=== PATIENT | male | born 1965 | race Two or more races ===

== ENCOUNTER 2020-01-01 10:05 | Outpatient (REF) | payer OTHER, SELFPAY ==
[2020-01-01 11:26] LABS: MANUAL DIFF FLAG NO
[2020-01-01 11:48] LABS: Estimated Average Glucose 255 mg/dL; Hemoglobin A1c % 10.5 %
[2020-01-01 11:50] LABS: Basophils Percent Auto 0.3 % (0-2); Eosinophils Absolute Auto 0.1 X10*3/uL (0.0-0.4); Eosinophils Percent Auto 1.2 % (0-4); Hematocrit 44.1 % (42-52); Hemoglobin 13.7 g/dl (14.0-18.0); Imm Gran Abs Auto 0.01 X10*3/uL (0.00-0.03); Imm Gran Pct Auto 0.1 % (0.0-0.4); Lymphocytes Absolute Auto 1.6 X10*3/uL (1.2-4.9); Lymphocytes Percent Auto 21.5 % (20-40); Mean Corpuscular HGB Conc 31.1 g/dl (31.0-36.0); Mean Corpuscular Hemoglobin 26.2 pg (27.0-33.0); Mean Corpuscular Volume 84.5 fL (80-98); Mean Platelet Volume 12.1 fL (9.4-12.4); Monocytes Absolute Auto 0.8 X10*3/uL (0.1-1.2); Monocytes Percent Auto 11.2 % (2-11); Neutrophils Absolute Auto 4.9 X10*3/uL (2.0-8.3); Neutrophils Percent Auto 65.7 % (45-73); Platelet Count 158 X10*3/uL (160-400); Red Blood Count 5.22 X10*6/uL (4.60-5.80); Red Cell Distribution Width 13.4 % (11.0-16.0); White Blood Count 7.4 X10*3/uL (4.8-10.8)
[2020-01-01 11:55] LABS: Alanine Aminotransferase 20 U/L (0-40); Alkaline Phosphatase 88 U/L (39-117); Anion Gap 10 (12-20); Aspartate Amino Transferase 14 U/L (5-37); Bilirubin Total 0.4 mg/dL (0.0-1.0); Blood Urea Nitrogen 9 mg/dL (9-16); Calcium 9.2 mg/dL (8.4-10.2); Carbon Dioxide 26 mmol/L (22-29); Chloride 105 mmol/L (96-108); Cholesterol 131 mg/dL; Estimated Glomerular Filt Rate > 60; Glucose Random 264 mg/dL (60-115); HDL Cholesterol 47 mg/dL; LDL Cholesterol Calculated 60 mg/dl; Potassium 4.4 mmol/l (3.3-5.1); Sodium 137 mmol/L (135-145); Total Protein 6.6 g/dL (6.5-8.0); Triglycerides 123 mg/dL
[2020-01-01 12:19] LABS: Thyroid Stimulating Hormone 0.97 mIU/mL (0.32-4.0)
[2020-01-01 12:30] LABS: Microalbum/Creatinine Ratio Ur 10.5 ug/mg cr
== END 2020-01-01 10:06 | disposition home or self-care (01) ==
LOC: HO.LAB 10:05
PROVIDERS: PCP Internal Medicine; Visit Provider Internal Medicine
DX: E11.9 Type 2 diabetes mellitus without complications (principal); E78.00 Pure hypercholesterolemia, unspecified; I10 Essential (primary) hypertension; G47.33 Obstructive sleep apnea (adult) (pediatric)
CPT/HCPCS: 36415; 80053; 80061; 82043; 83036; 84443; 85025

== ENCOUNTER → 2020-02-04 13:47 | Outpatient (BNVA) | payer OTHER, SELFPAY | PROVIDERS: PCP Internal Medicine; Referring Provider Internal Medicine; Visit Provider Internal Medicine Cardiovascular Disease | DX: I48.0 Paroxysmal atrial fibrillation (principal); G47.33 Obstructive sleep apnea (adult) (pediatric); Z86.79 Personal history of other diseases of the circulatory system; Z45.02 Encounter for adjustment and management of automatic implantable cardiac defibrillator | CPT/HCPCS: 93005; 99212 ==

== ENCOUNTER → 2020-03-25 08:55 | Outpatient (BNVA) | payer OTHER, SELFPAY | PROVIDERS: Visit Provider Psychiatry & Neurology Neurology | DX: Z13.89 Encounter for screening for other disorder (principal) | CPT/HCPCS: Q3014 ==

== ENCOUNTER → 2020-05-13 10:01 | Outpatient (BNVA) | payer OTHER, SELFPAY | PROVIDERS: Visit Provider Psychiatry & Neurology Neurology | DX: Z76.89 Persons encountering health services in other specified circumstances (principal) | CPT/HCPCS: Q3014 ==

== ENCOUNTER → 2020-05-23 10:23 | Outpatient (BNVA) | payer OTHER, SELFPAY | PROVIDERS: PCP Internal Medicine; Visit Provider Nurse Practitioner Family | DX: I48.0 Paroxysmal atrial fibrillation (principal); I10 Essential (primary) hypertension; G47.33 Obstructive sleep apnea (adult) (pediatric); E66.01 Morbid (severe) obesity due to excess calories; Z68.43 Body mass index [BMI] 50.0-59.9, adult; Z95.810 Presence of automatic (implantable) cardiac defibrillator; Z86.79 Personal history of other diseases of the circulatory system; Z79.899 Other long term (current) drug therapy | CPT/HCPCS: 93005; 99212 ==

== ENCOUNTER 2020-05-29 12:27 | Outpatient (REF) | payer OTHER, SELFPAY ==
[2020-05-29 13:04] LABS: MANUAL DIFF FLAG NO
[2020-05-29 13:08] LABS: Basophils Percent Auto 0.4 % (0-2); Eosinophils Absolute Auto 0.1 X10*3/uL (0.0-0.4); Hematocrit 44.6 % (42-52); Hemoglobin 14.1 g/dl (14.0-18.0); Imm Gran Abs Auto 0.01 X10*3/uL (0.00-0.03); Imm Gran Pct Auto 0.1 % (0.0-0.4); Lymphocytes Absolute Auto 1.6 X10*3/uL (1.2-4.9); Lymphocytes Percent Auto 22.8 % (20-40); Mean Corpuscular HGB Conc 31.6 g/dl (31.0-36.0); Mean Corpuscular Volume 82.3 fL (80-98); Mean Platelet Volume 11.4 fL (9.4-12.4); Monocytes Absolute Auto 0.8 X10*3/uL (0.1-1.2); Neutrophils Absolute Auto 4.5 X10*3/uL (2.0-8.3); Neutrophils Percent Auto 64.7 % (45-73); Platelet Count 158 X10*3/uL (160-400); Red Blood Count 5.42 X10*6/uL (4.60-5.80); Red Cell Distribution Width 13.5 % (11.0-16.0)
[2020-05-29 13:16] LABS: Estimated Average Glucose 295 mg/dL; Hemoglobin A1c % 11.9 %
[2020-05-29 13:32] LABS: Alanine Aminotransferase 13 U/L (0-40); Alkaline Phosphatase 100 U/L (39-117); Anion Gap 12 (12-20); Aspartate Amino Transferase 12 U/L (5-37); Bilirubin Total 0.6 mg/dL (0.0-1.0); Blood Urea Nitrogen 10 mg/dL (9-16); Calcium 9.1 mg/dL (8.4-10.2); Carbon Dioxide 26 mmol/L (22-29); Chloride 102 mmol/L (96-108); Estimated Glomerular Filt Rate > 60; Glucose Random 264 mg/dL (60-115); Potassium 4.3 mmol/L (3.3-5.1); Sodium 136 mmol/L (135-145); Total Protein 6.8 g/dL (6.5-8.0)
== END 2020-05-29 12:28 | disposition home or self-care (01) ==
LOC: HO.LAB 12:27
PROVIDERS: PCP Internal Medicine; Visit Provider Internal Medicine
DX: E11.649 Type 2 diabetes mellitus with hypoglycemia without coma (principal); E78.00 Pure hypercholesterolemia, unspecified; I10 Essential (primary) hypertension; M54.5 Low back pain; Z79.01 Long term (current) use of anticoagulants
CPT/HCPCS: 36415; 80053; 83036; 85025

== ENCOUNTER → 2020-07-01 10:47 | Outpatient (BNVA) | payer OTHER, SELFPAY | PROVIDERS: PCP Internal Medicine; Visit Provider Psychiatry & Neurology Neurology | DX: Z13.89 Encounter for screening for other disorder (principal) | CPT/HCPCS: Q3014 ==

== ENCOUNTER 2020-07-01 11:52 | Outpatient (REF) | payer OTHER, SELFPAY | END 2020-07-01 11:53 | disposition home or self-care (01) | LOC: HO.LAB 11:52 | PROVIDERS: Visit Provider Internal Medicine | DX: Z20.822 Contact with and (suspected) exposure to COVID-19 (principal) | CPT/HCPCS: C9803; U0003; U0005 ==

== ENCOUNTER 2020-07-12 08:31 | Inpatient (IN) | payer OTHER, SELFPAY ==
[2020-07-12] VITALS (9 sets, daily range): BP systolic 117–133; BP diastolic 63–77; PULSE 82–145; RESP 18–24; TEMP 37–37.6; O2SAT 88–95; BMI 43.2
--- NOTE | ~2020-07-12 | XR_ITS ---
EXAMINATION: XR CHEST CLINICAL INFORMATION: Shortness of breath/Covid positive COMPARISON: April 16, 2019 TECHNIQUE: AP portable view of the chest was obtained. FINDINGS: Bilateral regions of patchy groundglass opacity noted. The cardiopericardial silhouette is upper limits of normal in size. No evidence of pulmonary edema. Region of more confluent disease is seen within the right middle lobe. Unipolar pacemaker in place. No pneumothorax XR/XR chest 1V IMPRESSION: Bilateral patchy regions of disease.
--- NOTE | 2020-07-12 09:19 | ECG_ITS ---
Test Reason : SOB Blood Pressure : / mmHG Vent. Rate : 113 BPM Atrial Rate : 312 BPM P-R Int : 000 ms QRS Dur : 086 ms QT Int : 348 ms P-R-T Axes : 000 006 088 degrees QTc Int : 477 ms Atrial fibrillation with rapid ventricular response Abnormal ECG When compared with ECG of 09-FEB-2017 08:35, Atrial fibrillation has replaced Sinus rhythm Nonspecific T wave abnormality now evident in Lateral leads Referred By: Belia Omalley Electronically Signed By:KERI HARRISON MD
--- NOTE | 2020-07-12 09:33 | ED.GENADULT ---
HPI - General Adult General Chief complaint: General Medical Stated complaint: NAUSEA/VOMITING SINCE LAST NOC,NO CONC FOR COVID Time Seen by Provider: 07/12/20 09:05 Source: patient and EMS Mode of arrival: EMS History of Present Illness HPI narrative: 54-year-old male with a past medical history of DM, cardiomyopathy, CHF, HTN, pacemaker, morbid obesity, RACHELLE, AFib on Xarelto, COVID-19 positive on 07/01/2020, presenting to the ED complaining of sore throat, nausea, vomiting, diarrhea, intermittent SOB, rhinorrhea/increased mucus, and intermittent lightheadedness since last night. Also reports decreased p.o. intake. Denies fever, chills, chest pain, abdominal pain, constipation, LE edema, calf pain Onset (ago): day(s) Related Data Home Medications Medication Instructions Recorded Confirmed atorvastatin 40 mg tablet 40 mg PO BEDTIME 02/04/20 07/12/20 hydrochlorothiazide 25 mg tablet 25 mg PO QAM 02/04/20 07/12/20 insulin aspart U-100 100 unit/mL 20 unit SUBCUT TID 02/04/20 subcutaneous solution insulin glargine 100 unit/mL 45 unit SUBCUT BEDTIME 02/04/20 subcutaneous solution metformin 1,000 mg tablet 1,000 mg PO BID 02/04/20 07/12/20 metoprolol succinate 100 mg 100 mg PO BID 02/04/20 07/12/20 tablet,extended release 24 hr losartan 100 mg tablet 100 mg PO QAM 05/23/20 07/12/20 fluoxetine 1 cap PO QAM 07/12/20 07/12/20 Previous Rx's Medication Instructions Recorded apixaban 5 mg tablet 5 mg PO BID 90 Days #180 tab 03/25/20 amiodarone 200 mg tablet 200 mg PO QAM #30 tab 05/20/20 Allergies Allergy/AdvReac Type Severity Reaction Status Date / Time No Known Allergies Allergy Mild NOT Verified 07/12/20 08:50 APPLICABLE Review of Systems Review of Systems: Constitutional: No Fever, No Chills, No Night Sweats, No Fatigue, No Malaise ENT/Mouth: No Ear Pain, + Nasal Congestion, No Hoarseness, + sore throat, + Rhinorrhea, No Swallowing Difficulty Cardiovascular: No Chest Pain, + SOB, No Dyspnea on Exertion, No Edema Respiratory: No Cough, No Sputum Gastrointestinal: + Nausea, + Vomiting, + Diarrhea, No Constipation, No Abdominal pain Genitourinary: No Dysuria, No Urinary Frequency, No Hematuria Musculoskeletal: No joint pain, No Myalgias, No Joint Swelling Skin: No Skin Lesions, No rash Neuro: No Weakness, No Numbness, +Lightheadedness Yes all other systems are reviewed and are negative [facility] Past Medical History Attestation statement: The following information was validated with the patient. Medical History Diabetes mellitus History of cardiomyopathy History of congestive heart failure HTN (hypertension) Hx of cardiac pacemaker ICD (implantable cardioverter-defibrillator) in place Morbid obesity RACHELLE (obstructive sleep apnea) Paroxysmal atrial fibrillation Surgical History Hx of cardiac cath Family History Family History Father CVD (cardiovascular disease) Mother No problems noted. Social History Social History Smoking Status: Never smoker Smoked in Last 30 Days: No Use of substances other than those prescribed or required for medical reasons: No Advance Directives: No Advance Directives Information Provided: No Physical Exam Vital Signs: Vital Signs: Last Vital Signs Temp 99.7 F 07/12/20 10:34 Pulse 105 H 07/12/20 10:34 Resp 24 H 07/12/20 10:34 BP 133/72 07/12/20 10:34 Pulse Ox 95 07/12/20 11:57 Oxygen Flow Rate 2 07/12/20 08:50 Body Mass Index 43.2 Const: General: cooperative and healthy appearing Orientation/consciousness: patient oriented x3 Limitations: no limitations HENMT: Head: Yes normal to inspection Ears: hearing grossly normal bilaterally General nose exam: Normal external nose present Face and sinus: Yes normal facial exam Mouth: Normal oral and palatal mucosa present Throat: Yes posterior oropharynx normal, Yes uvula midline, No peritonsillar mass and No posterior oropharynx abnormal Eyes: General: appearance normal, both eyes and all related structures EOM: EOMs intact bilaterally Neck: Neck: Yes normal visual inspection, Yes no meningeal signs and Yes supple Resp: Effort & Inspection: normal respiratory effort Auscultation: diminished lung sounds diffuse Cardio: Rate: regular rate Heart sounds: S1 normal heart sound present and S2 normal heart sound present GI: Inspection: Yes normal to inspection Palpation (GI): Soft to palpation, nontender, no guarding and not rigid Skin: Rashes: no rashes Wounds: no wounds Neuro: General: patient oriented x3 and no meningeal signs Gait exam (Neuro): Normal gait present Extrem: General: Yes normal to inspection, Yes no pedal edema and Yes no calf tenderness Course Course Course Narrative: -EKG AFib with RVR with rate of 113. Patient missed home does of his medications this morning, will start with p.o. rate control meds and reassess -1112--XR chest 1V IMPRESSION: Bilateral patchy regions of disease > IV Ceftriaxone and Doxycycline ordered -glucose elevated 367, no anion gap, ferritin, CRP, LDH elevated consistent with COVID-19 infection. Troponin < 5 >> will ambulate trial with pulse ox --patient dropped to 88% on ambulation trial. Will admit for further management -1356--patient's heart rate still elevated lb the mid 130s to 150s even after home medications. Will give 500 cc IVF and 20 IV Cardizem Medical Decision Making [facility] Narrative Medical decision making narrative: 54-year-old male with a past medical history of DM, cardiomyopathy, CHF, HTN, pacemaker, morbid obesity, RACHELLE, AFib on Xarelto, COVID-19 positive on 07/01/2020, presenting to the ED complaining of sore throat, nausea, vomiting, diarrhea, intermittent SOB, rhinorrhea/increased mucus, and intermittent lightheadedness since last night. On exam low-grade temp 99.4?, sating 90% on RA increased to 94-95 on 2L NC, decreased breath sounds throughout. Concern for COVID-19/viral pneumonia. Lower concern for PE without CP/persistent SOB and already anticoagulated. Concern for possible CHF. Lower concern for bacterial infection Plan: EKG, labs, CXR, albuterol, Decadron, ambulated with pulse ox, reassess Lab Data Result diagrams: 07/12/20 10:15 07/12/20 10:15 Labs: Lab Results 04/24/21 04/24/21 04/24/21 Range/Units 10:14 10:15 10:15 WBC 7.8 (4.8-10.8) X10*3/uL RBC 5.51 (4.60-5.80) X10*6/uL Hgb 14.1 (14.0-18.0) g/dl Hct 44.1 (42-52) % MCV 80.0 (80-98) fL MCH 25.6 L (27.0-33.0) pg MCHC 32.0 (31.0-36.0) g/dl RDW 13.4 (11.0-16.0) % Plt Count 165 (160-400) X10*3/uL MPV 11.7 (9.4-12.4) fL Immature Gran % (Auto) 0.3 (0.0-0.4) % Neut % (Auto) 85.5 H (45-73) % Lymph % (Auto) 8.7 L (20-40) % Jerome % (Auto) 5.4 (2-11) % Eos % (Auto) 0.0 (0-4) % Baso % (Auto) 0.1 (0-2) % Lymph # (Auto) 0.7 L (1.2-4.9) X10*3/uL Jerome # (Auto) 0.4 (0.1-1.2) X10*3/uL Eos # (Auto) 0.0 (0.0-0.4) X10*3/uL Baso # (Auto) 0.0 (0.0-0.2) X10*3/uL Abs Immat Gran (auto) 0.02 (0.00-0.03) X10*3/uL Absolute Neuts (auto) 6.7 (2.0-8.3) X10*3/uL Absolute Nucleated RBC 0.000 (0.0-0.012) X10*3/uL Nucleated RBC % (auto) 0.0 (0.0-0.2) /100WBC Smear Tech's Comments VERIFIED PT 16.4 H (10.8-13.0) SEC INR 1.4 H (0.9-1.1) APTT 38.5 H (24.1-38.0) SEC D-Dimer 522 NG/ML Sodium (135-145) mmol/L Potassium (3.3-5.1) mmol/L Chloride (96-108) mmol/L Carbon Dioxide (22-29) mmol/L Anion Gap (12-20) BUN (9-16) mg/dL Creatinine (0.5-1.4) mg/dL Estim Creat Clear Calc Estimated GFR Random Glucose (60-115) mg/dL Lactic Acid 1.8 (0.5-2.0) mmol/L Calcium (8.4-10.2) mg/dL Magnesium (1.6-2.6) mg/dL Ferritin (20-250) ng/mL Total Bilirubin (0.0-1.0) mg/dL Direct Bilirubin (0.0-0.5) mg/dL AST (5-37) U/L ALT (0-40) U/L Alkaline Phosphatase (39-117) U/L Lactate Dehydrogenase (118-273) U/L Troponin I High Sens (<3.5-35.0) ng/L C-Reactive Protein (< or = 0.50) mg/dL B-Natriuretic Peptide (<100) pg/mL Total Protein (6.5-8.0) g/dL Albumin (3.5-5.0) g/dL Procalcitonin ng/mL 07/12/20 07/12/20 07/12/20 Range/Units 10:15 10:15 10:15 WBC (4.8-10.8) X10*3/uL RBC (4.60-5.80) X10*6/uL Hgb (14.0-18.0) g/dl Hct (42-52) % MCV (80-98) fL MCH (27.0-33.0) pg MCHC (31.0-36.0) g/dl RDW (11.0-16.0) % Plt Count (160-400) X10*3/uL MPV (9.4-12.4) fL Immature Gran % (Auto) (0.0-0.4) % Neut % (Auto) (45-73) % Lymph % (Auto) (20-40) % Jerome % (Auto) (2-11) % Eos % (Auto) (0-4) % Baso % (Auto) (0-2) % Lymph # (Auto) (1.2-4.9) X10*3/uL Jerome # (Auto) (0.1-1.2) X10*3/uL Eos # (Auto) (0.0-0.4) X10*3/uL Baso # (Auto) (0.0-0.2) X10*3/uL Abs Immat Gran (auto) (0.00-0.03) X10*3/uL Absolute Neuts (auto) (2.0-8.3) X10*3/uL Absolute Nucleated RBC (0.0-0.012) X10*3/uL Nucleated RBC % (auto) (0.0-0.2) /100WBC Smear Tech's Comments PT (10.8-13.0) SEC INR (0.9-1.1) APTT (24.1-38.0) SEC D-Dimer NG/ML Sodium 136 (135-145) mmol/L Potassium 4.1 (3.3-5.1) mmol/L Chloride 100 (96-108) mmol/L Carbon Dioxide 23 (22-29) mmol/L Anion Gap 17 (12-20) BUN 12 (9-16) mg/dL Creatinine 0.96 (0.5-1.4) mg/dL Estim Creat Clear Calc 127.7 Estimated GFR > 60 Random Glucose 367 H* (60-115) mg/dL Lactic Acid (0.5-2.0) mmol/L Calcium 8.6 (8.4-10.2) mg/dL Magnesium 1.8 (1.6-2.6) mg/dL Ferritin 278 H (20-250) ng/mL Total Bilirubin 0.5 (0.0-1.0) mg/dL Direct Bilirubin 0.3 (0.0-0.5) mg/dL AST 27 D (5-37) U/L ALT 18 (0-40) U/L Alkaline Phosphatase 77 D (39-117) U/L Lactate Dehydrogenase 356 H (118-273) U/L Troponin I High Sens 4.6 (<3.5-35.0) ng/L C-Reactive Protein 22.29 H (< or = 0.50) mg/dL B-Natriuretic Peptide 242 H (<100) pg/mL Total Protein 6.6 (6.5-8.0) g/dL Albumin 3.6 (3.5-5.0) g/dL Procalcitonin 0.17 ng/mL ECG Data Attestation: I personally reviewed and interpreted this ECG as follows: Prior ECG tracings: available for review Interpretation: EKG AFib with RVR with a rate of 113. No STEMI/nonischemic Discharge Plan Discharge Clinical Impression: Pneumonia due to COVID-19 virus Patient Disposition: Admitted As Inpatient
[2020-07-12] MEDS: dexAMETHasone sod phosphate 4 MG/ML VIAL 6 MG IVPUSH (10:23)
[2020-07-12 10:25] LABS: Basophils Percent Auto 0.1 % (0-2); Hematocrit 44.1 % (42-52); Hemoglobin 14.1 g/dl (14.0-18.0); Imm Gran Abs Auto 0.02 X10*3/uL (0.00-0.03); Imm Gran Pct Auto 0.3 % (0.0-0.4); Lymphocytes Absolute Auto 0.7 X10*3/uL (1.2-4.9); Lymphocytes Percent Auto 8.7 % (20-40); MANUAL DIFF FLAG SCAN; Mean Corpuscular Hemoglobin 25.6 pg (27.0-33.0); Mean Platelet Volume 11.7 fL (9.4-12.4); Monocytes Absolute Auto 0.4 X10*3/uL (0.1-1.2); Monocytes Percent Auto 5.4 % (2-11); Neutrophils Absolute Auto 6.7 X10*3/uL (2.0-8.3); Neutrophils Percent Auto 85.5 % (45-73); Platelet Count 165 X10*3/uL (160-400); Red Blood Count 5.51 X10*6/uL (4.60-5.80); Red Cell Distribution Width 13.4 % (11.0-16.0); SCAN SMEAR FLAG 1; White Blood Count 7.8 X10*3/uL (4.8-10.8)
[2020-07-12 10:43] LABS: SLIDE REVIEW VERIFIED
[2020-07-12 10:43] LABS: Lactic Acid 1.8 mmol/L (0.5-2.0)
[2020-07-12 10:49] LABS: Lactate Dehydrogenase 356 U/L (118-273)
[2020-07-12 10:51] LABS: INTERNATIONAL NORM RATIO 1.4 (0.9-1.1); Prothrombin Time 16.4 SEC (10.8-13.0)
[2020-07-12] MEDS: ondansetron HCL 4 MG/2 ML VIAL IVPUSH (10:54)
[2020-07-12 10:55] LABS: B Type Natriuretic Peptide 242 pg/mL (<100)
--- NOTE | 2020-07-12 10:56 | PC.NURSE ---
patient reports he has been n/v at home and has not taken AM meds. HR from 100-140's afib. patient has home meds with him in package. spoke with PA. pt medicated with zofran and then ok to take home meds. snack provided for patient as well.
[2020-07-12 10:58] LABS: Partial Thromboplastin Time 38.5 SEC (24.1-38.0)
[2020-07-12 11:05] LABS: Procalcitonin 0.17 ng/mL
[2020-07-12 11:11] LABS: Ferritin 278 ng/mL (20-250)
[2020-07-12 11:18] LABS: Troponin-I High Sensitivity 4.6 ng/L (<3.5-35.0)
[2020-07-12 11:19] LABS: Alanine Aminotransferase 18 U/L (0-40); Albumin Level 3.6 g/dL (3.5-5.0); Alkaline Phosphatase 77 U/L (39-117); Anion Gap 17 (12-20); Aspartate Amino Transferase 27 U/L (5-37); Bilirubin Direct 0.3 mg/dL (0.0-0.5); Bilirubin Total 0.5 mg/dL (0.0-1.0); Blood Urea Nitrogen 12 mg/dL (9-16); C Reactive Protein 22.29 mg/dL (< or = 0.50); Calcium 8.6 mg/dL (8.4-10.2); Carbon Dioxide 23 mmol/L (22-29); Chloride 100 mmol/L (96-108); Creatinine Clr Calc Pharmacy 127.7; Estimated Glomerular Filt Rate > 60; Glucose Random 367 mg/dL (60-115); Magnesium 1.8 mg/dL (1.6-2.6); Potassium 4.1 mmol/L (3.3-5.1); Sodium 136 mmol/L (135-145); Total Protein 6.6 g/dL (6.5-8.0)
[2020-07-12] MEDS: cefTRIAXone sodium 1 GM in 0.9 % Sodium Chloride 50 ML IV (11:32)
[2020-07-12 11:36] LABS: D Dimer 522 NG/ML
--- NOTE | 2020-07-12 11:56 | PC.NURSE ---
o2 sat dropped to 88% with ambulation. patient brought back to room and placed back on 2 L o2.
[2020-07-12] MEDS: Doxycycline Hyclate 100 MG in 0.9 % Sodium Chloride 250 ML 166.67 MG IV (12:05)
[2020-07-12] MEDS: dilTIAZem HCL 50 MG/10 ML VIAL 20 MG IVPUSH (14:01)
[2020-07-12] MEDS: 0.9 % Sodium Chloride 1,000 ML 500 ML IVCONT (14:07)
--- NOTE | 2020-07-12 15:11 | P.HPHOSP_ITS ---
History of Present Illness Date of Service: 07/12/20 <ROSETTA Zambrano Last Filed: 07/12/20 15:58> Chief Complaint: Nausea, vomiting, shortness of breath <ROSETTA Zambrano Last Filed: 07/12/20 15:58> This is a 54-year-old male multiple medical problems who presents to the emergency department today with complaints of nausea, vomiting, shortness of breath. Patient was diagnosed with coronavirus on July 01. For the past 2 days he has been having nausea and vomiting with generalized abdominal pain. He also reports intermittent dizziness, shortness of breath, sore throat, cough. He also reports feeling sweaty although he has not taken his temperature at home. He was noted to be hypoxic with an oxygen saturation of 88% on room air. Chest quoc was consistent with coronavirus. Inflammatory markers were elevated at 278, LDH 356, CRP 22.29. He was started on IV antibiotics and given a dose of IV dexamethasone. It was also noted to be in atrial fibrillation with rapid ventricular response. He had missed his home medications and was given his home doses of metoprolol and amiodarone. He continued to be tachycardic and therefore he received a dose of IV Cardizem and his heart rate improved. He denies any palpitations, chest pain. <ROSETTA Zambrano - Last Filed: 07/12/20 15:58> Review of Systems Review of Systems: Yes all other systems are reviewed and are negative <ROSETTA Zambrano Last Filed: 07/12/20 15:58> Constitutional: Constitutional: Denies chills <ROSETTA Zambrano Last Filed: 07/12/20 15:58> Cardiovascular: Cardiovascular: Denies chest pain and Denies dyspnea <ROSETTA Zambrano Last Filed: 07/12/20 15:58> Respiratory: Respiratory: Reports cough and Denies dyspnea <ROSETTA Zambrano Last Filed: 07/12/20 15:58> Gastrointestinal: Gastrointestinal: Reports nausea and Reports vomiting <ROSETTA Zambrano Last Filed: 07/12/20 15:58> COUNTS INCLUDE 234 BEDS AT THE [facility] Medical History: Medical History Diabetes mellitus History of cardiomyopathy History of congestive heart failure HTN (hypertension) Hx of cardiac pacemaker ICD (implantable cardioverter-defibrillator) in place Morbid obesity RACHELLE (obstructive sleep apnea) Paroxysmal atrial fibrillation <ROSETTA Zambrano - Last Filed: 07/12/20 15:58> Family History: Family History Father CVD (cardiovascular disease) Mother No problems noted. <ROSETTA Zambrano - Last Filed: 07/12/20 15:58> Surgical History: Surgical History Hx of cardiac cath <ROSETTA Zambrano - Last Filed: 07/12/20 15:58> Social History: Social History Smoking Status: Never smoker Smoked in Last 30 Days: No Use of substances other than those prescribed or required for medical reasons: No Advance Directives: No Advance Directives Information Provided: No <ROSETTA Zambrano - Last Filed: 07/12/20 15:58> Meds Allergies/Adverse reactions: Allergies Allergy/AdvReac Type Severity Reaction Status Date / Time No Known Allergies Allergy Mild NOT Verified 07/12/20 08:50 APPLICABLE <ROSETTA Zambrano - Last Filed: 07/12/20 15:58> Active Medications: Current Medications Generic Name Dose Route Start Last Admin Trade Name Freq PRN Reason Stop Dose Admin Sodium Chloride 1,000 mls @ 500 mls/hr 07/12/20 14:00 07/12/20 14:07 Ns IVCONT 07/12/20 15:59 500 mls/hr .Q2H REMIGIO Administration Pharmacy Consult 1 each 07/12/20 09:19 Consult Rx Perform Med Rec MISCELLANE ONCE PRN Consult order <ROSETTA Zambrano - Last Filed: 07/12/20 15:58> Home medications: Home Medications Medication Instructions Recorded Confirmed Last Taken Type atorvastatin 40 mg tablet 40 mg PO BEDTIME 02/04/20 07/12/20 Unknown History hydrochlorothiazide 25 mg tablet 25 mg PO QAM 02/04/20 07/12/20 Unknown History insulin aspart U-100 100 unit/mL 20 unit SUBCUT TID 02/04/20 Unknown History subcutaneous solution insulin glargine 100 unit/mL 45 unit SUBCUT BEDTIME 02/04/20 Unknown History subcutaneous solution metformin 1,000 mg tablet 1,000 mg PO BID 02/04/20 07/12/20 Unknown History metoprolol succinate 100 mg 100 mg PO BID 02/04/20 07/12/20 Unknown History tablet,extended release 24 hr losartan 100 mg tablet 100 mg PO QAM 05/23/20 07/12/20 Unknown History fluoxetine 1 cap PO QAM 07/12/20 07/12/20 Unknown History <ROSETTA Zambrano - Last Filed: 07/12/20 15:58> Physical Exam Vital Signs and Narrative: Vital Signs: Last Vital Signs Temp 98.6 F 07/12/20 14:49 Pulse 102 H 07/12/20 14:49 Resp 21 H 07/12/20 14:49 BP 120/71 07/12/20 14:49 Pulse Ox 94 07/12/20 14:49 Oxygen Flow Rate 2 07/12/20 08:50 Body Mass Index 43.2 <ROSETTA Zambrano Last Filed: 07/12/20 15:58> Const: General: alert and awake <ROSETTA Zambrano Last Filed: 07/12/20 15:58> Nutritional Appearance: obese <ROSETTA Zambrano Last Filed: 07/12/20 15:58> Orientation/consciousness: patient oriented x3 <ROSETTA Zambrano Last Filed: 07/12/20 15:58> HENMT: Head: Yes normocephalic and Yes atraumatic <ROSETTA Zambrano Last Filed: 07/12/20 15:58> Eyes: Sclerae: sclerae normal <ROSETTA Zambrano Last Filed: 07/12/20 15:58> Chest: Chest palpation & inspection: normal inspection of the chest <ROSETTA Zambrano Last Filed: 07/12/20 15:58> Resp: Effort & Inspection: normal respiratory effort and no respiratory dist ress <ROSETTA Zambrano Last Filed: 07/12/20 15:58> GI: Palpation (GI): Soft to palpation and nontender <ROSETTA Zambrano - Last Filed: 07/12/20 15:58> Neuro: General: patient oriented x3 <ROSETTA Zambrano - Last Filed: 07/12/20 15:58> Cranial nerves: Yes CN's II-XII intact bilaterally and Yes Bilaterally intact E OM present <ROSETTA Zambrano - Last Filed: 07/12/20 15:58> Extrem: General: Yes normal to inspection <ROSETTA Zambrano - Last Filed: 07/12/20 15:58> Results Labs CBC and Chem 7: : 07/12/20 10:15 07/12/20 10:15 <ROSETTA Zambrano - Last Filed: 07/12/20 15:58> Labs: Laboratory Results - last 24 hr 07/12/20 07/12/20 07/12/20 10:14 10:15 10:15 MCV 80.0 MCH 25.6 L MCHC 32.0 RDW 13.4 Plt Count 165 MPV 11.7 Immature Gran % (Auto) 0.3 Neut % (Auto) 85.5 H Lymph % (Auto) 8.7 L [place] % (Auto) 5.4 Eos % (Auto) 0.0 Baso % (Auto) 0.1 Lymph # (Auto) 0.7 L [place] # (Auto) 0.4 Eos # (Auto) 0.0 Baso # (Auto) 0.0 Abs Immat Gran (auto) 0.02 Absolute Neuts (auto) 6.7 Absolute Nucleated RBC 0.000 Nucleated RBC % (auto) 0.0 Smear Tech's Comments VERIFIED PT 16.4 H INR 1.4 H APTT 38.5 H D-Dimer 522 Anion Gap Estim Creat Clear Calc Estimated GFR Random Glucose Lactic Acid 1.8 Calcium Magnesium Ferritin Total Bilirubin Direct Bilirubin AST ALT Alkaline Phosphatase Lactate Dehydrogenase Troponin I High Sens C-Reactive Protein B-Natriuretic Peptide Total Protein Albumin Procalcitonin 07/12/20 07/12/20 07/12/20 10:15 10:15 10:15 MCV MCH MCHC RDW Plt Count MPV Immature Gran % (Auto) Neut % (Auto) Lymph % (Auto) [place] % (Auto) Eos % (Auto) Baso % (Auto) Lymph # (Auto) [place] # (Auto) Eos # (Auto) Baso # (Auto) Abs Immat Gran (auto) Absolute Neuts (auto) Absolute Nucleated RBC Nucleated RBC % (auto) Smear Tech's Comments PT INR APTT D-Dimer Anion Gap 17 Estim Creat Clear Calc 127.7 Estimated GFR > 60 Random Glucose 367 H* Lactic Acid Calcium 8.6 Magnesium 1.8 Ferritin 278 H Total Bilirubin 0.5 Direct Bilirubin 0.3 AST 27 D ALT 18 Alkaline Phosphatase 77 D Lactate Dehydrogenase 356 H Troponin I High Sens 4.6 C-Reactive Protein 22.29 H B-Natriuretic Peptide 242 H Total Protein 6.6 Albumin 3.6 Procalcitonin 0.17 <ROSETTA Zambrano - Last Filed: 07/12/20 15:58> Imaging Radiologist's Impressions: Impressions Chest X-Ray 07/12/20 09:19 IMPRESSION: Bilateral patchy regions of disease. <ROSETTA Zambrano - Last Filed: 07/12/20 15:58> Assessment and Plan (1) Pneumonia due to COVID-19 virus: Status: Acute <ROSETTA Zambrano - Last Filed: 07/12/20 15:58> (2) Atrial fibrillation with rapid ventricular response: Status: Acute <ROSETTA Zambrano - Last Filed: 07/12/20 15:58> (3) Acute respiratory failure with hypoxia: Status: Acute <ROSETTA Zambrano - Last Filed: 07/12/20 15:58> This is a 54-year-old male with history of diabetes, cardiomyopathy status post ICD with recovered ejection fraction, hypertension, morbid obesity, atrial fibrillation on Eliquis, RACHELLE, recent diagnosis of COVID-19 who presents to the emergency department with multiple complaints found to be hypoxic and in atrial fibrillation with rapid ventricular response. Acute respiratory failure with hypoxia COVID-19 Inflammatory markers elevated LDH 356, Ferritin 278, CRP 22.29 -IV dexamethasone -supplemental oxygen as needed -prn albuterol Atrial fibrillation with rapid ventricular response Received IV Cardizem with good effect -tele monitoring -continue home dose of metoprolol, amiodarone -continue anticoagulation with Eliquis RACHELLE needs repeat sleep study for new CPAP machine, so not currently using at home -Will order CPAP for bedtime Diabetes with hyperglycemia -SSI, POCs, ada diet -Continue Lantus CM s/p ICD with recovered EF -continue metoprolol, losartan HTN blood pressure controlled -continue HCTZ, metoprolol, losartan Morbid obesity BMI 43.3. Likely contributing to current respiratory status and hypoxia. Mood -continue fluoxetine HLD -continue statin DVT prophylaxis-Eliquis Code status-full code This case was discussed with Dr. Khan <ROSETTA Zambrano - Last Filed: 07/12/20 15:58>
[2020-07-12 15:16] LABS: Glucose, Whole Blood 374 mg/dL (60-115)
[2020-07-12] MEDS: 0.9 % Sodium Chloride Flush 3 ML SYRINGE IVFLUSH (16:01)
[2020-07-12] MEDS: Insulin Lispro 100 UNIT/ML 3 ML VIAL SUBCUT ×2 (16:01→20:57)
--- NOTE | 2020-07-12 16:08 | PM.EVENT ---
Event Note Date of Service: 07/12/20 Event Note: the patient was seen and evaluated with ROSETTA Jeff. I agree with her note, assessment and plan with the following. In summary, a 54 years old male with PMH diabetes, CMP post ICD, RACHELLE, AFib among others who presented to the hospital with worsening shortness of breath associated with nausea vomiting. He was diagnosed with COVID in July 01 but noticed over the last 3 days significant worsening in his dyspnea with increased weakness. He started to have nausea and vomiting for the last 2 days and has not been able to tolerate much of diet. In the emergency he was noted to have hypoxemia of 88% with ambulation associated with the atrial fibrillation with rapid ventricular response. Hypoxic respiratory failure COVID-19 infection Start dexamethasone O2 supplement as needed to get ID evaluation AFib with RVR Received IV Cardizem continue home medications of metoprolol and amiodarone keep on telemetry continue Eliquis Rest of evaluations by PA note.
[2020-07-12 20:36] LABS: Glucose, Whole Blood 459 mg/dL (60-115)
[2020-07-12] MEDS: Metoprolol Succinate ER 100 MG TAB.ER.24H PO (20:57)
[2020-07-12] MEDS: Insulin Glargine,Hum.rec.anlog 100 UNIT/ML 10 ML VIAL 35 UNIT SUBCUT (20:57)
[2020-07-12] MEDS: Atorvastatin Calcium 40 MG TABLET PO (20:58)
[2020-07-12] MEDS: Apixaban 5 MG TABLET PO (20:58)
[2020-07-12] MEDS: Insulin Lispro 100 UNIT/ML 3 ML VIAL 10 UNIT SUBCUT ×2 (21:37→23:27)
[2020-07-12] MEDS: Acetaminophen 325 MG TABLET 650 MG PO (21:58)
[2020-07-12 22:25] LABS: Glucose, Whole Blood 408 mg/dL (60-115)
[2020-07-12 22:25] LABS: Glucose, Whole Blood 387 mg/dL (60-115)
[2020-07-13] VITALS (10 sets, daily range): BP systolic 109–132; BP diastolic 66–80; PULSE 84–113; RESP 19–24; TEMP 36.6–37.1; O2SAT 90–97
[2020-07-13 00:50] LABS: Glucose, Whole Blood 263 mg/dL (60-115)
[2020-07-13] MEDS: 0.9 % Sodium Chloride Flush 3 ML SYRINGE IVFLUSH ×3 (01:58→16:29)
--- NOTE | 2020-07-13 04:28 | PC.NURSE ---
Around 0300 pt O2 sat dropped to 87%. Assessed patient, NC was out of nose and pt was sleeping. pt placed back on o2, and was educated about keeping the NC in his nose at all times. Sats increased back up to 94% 5L O2.
--- NOTE | 2020-07-13 04:30 | PC.NURSE ---
pt received additional 10 units humalog at 2130 for POC 459. POC retaken around 2230, poc 387, 10 additional received 10 units humalog. Blood sugar has come down to 263. aware.
[2020-07-13 07:16] LABS: Glucose, Whole Blood 245 mg/dL (60-115)
[2020-07-13] MEDS: hydroCHLOROthiazide 25 MG TABLET PO (08:12)
[2020-07-13] MEDS: Losartan Potassium 50 MG TABLET 100 MG PO (08:12)
[2020-07-13] MEDS: Insulin Lispro 100 UNIT/ML 3 ML VIAL SUBCUT ×4 (08:12→20:40)
[2020-07-13] MEDS: Docusate Sodium 100 MG CAPSULE PO (08:12)
[2020-07-13] MEDS: Apixaban 5 MG TABLET PO ×2 (08:12→20:40)
[2020-07-13] MEDS: FLUoxetine HCl 20 MG CAPSULE PO (08:13)
[2020-07-13] MEDS: Amiodarone HCL 200 MG TABLET PO (08:13)
[2020-07-13] MEDS: Metoprolol Succinate ER 100 MG TAB.ER.24H PO ×2 (08:13→20:40)
--- NOTE | 2020-07-13 10:04 | MHC.CM.PN ---
Patient is on both contact and airborne precautions; CM spoke with /Madie @ [phone]. Patient lives in an apartment with his and Son and he is waiting on paperwork to begin receiving [employer] services. Home is the goal for dc and CM has initiated and will follow for dc planning. IMM addressed with Madie and the original will be mailed certified letter to her and a copy has been placed on the chart.
[2020-07-13 11:10] LABS: Glucose, Whole Blood 325 mg/dL (60-115)
--- NOTE | 2020-07-13 11:17 | P.PNIM_ITS ---
Subjective Subjective Date of Service: 07/13/20 <ROSETTA Zambrano - Last Filed: 07/13/20 11:27> 07/13/20 <Duncan Hahn MD - Last Filed: 07/13/20 14:57> Interval History: follow up respiratory failure/COVID 19 and atrial fibrillation with RVR Reports difficulty sleeping overnight due to cough, sore throat Unable to tolerate CPAP overnight due to above Denies chest pain, palpitations <ROSETTA Zambrano - Last Filed: 07/13/20 11:27> Review of Systems Constitutional: No Fever, No Chills, No Night Sweats, No Fatigue, No Malaise ENT/Mouth: No Ear Pain, + Nasal Congestion, No Hoarseness, + sore throat, + Rhinorrhea, No Swallowing Difficulty Cardiovascular: No Chest Pain, + SOB, No Dyspnea on Exertion, No Edema Respiratory: No Cough, No Sputum Gastrointestinal: + Nausea, + Vomiting, + Diarrhea, No Constipation, No Abdominal pain Genitourinary: No Dysuria, No Urinary Frequency, No Hematuria Musculoskeletal: No joint pain, No Myalgias, No Joint Swelling Skin: No Skin Lesions, No rash Neuro: No Weakness, No Numbness, +Lightheadedness <ROSETTA Zambrano - Last Filed: 07/13/20 11:27> Review of Systems: Yes all other systems are reviewed and are negative <ROSETTA Zambrano - Last Filed: 07/13/20 11:27> Constitutional Constitutional: Denies chills and Denies fever(s) <ROSETTA Zambrano - Last Filed: 07/13/20 11:27> Cardiovascular Cardiovascular: Denies chest pain and Denies palpitations <ROSETTA Zambrano - Last Filed: 07/13/20 11:27> Respiratory Respiratory: Reports cough <ROSETTA Zambrano - Last Filed: 07/13/20 11:27> Gastrointestinal Gastrointestinal: Denies abdominal pain <ROSETTA Zambrano - Last Filed: 07/13/20 11:27> Endocrine Endocrine: Denies palpitations <ROSETTA Zambrano - Last Filed: 07/13/20 11:27> Physical Exam Vital Signs: Vital Signs: Last Vital Signs Temp 98.2 F 07/13/20 08:00 Pulse 85 07/13/20 08:13 Resp 19 07/13/20 08:00 BP 132/76 07/13/20 08:13 Pulse Ox 92 07/13/20 08:00 Oxygen Flow Rate 2 07/12/20 08:50 Body Mass Index 43.2 <ROSETTA Zambrano - Last Filed: 07/13/20 11:27> Const: General: comfortable, no acute distress, alert and awake <ROSETTA Zambrano - Last Filed: 07/13/20 11:27> Nutritional Appearance: obese <ROSETTA Zambrano - Last Filed: 07/13/20 11:27> Orientation/consciousness: patient oriented x3 <ROSETTA Zambrano - Last Filed: 07/13/20 11:27> HENMT: Head: Yes normocephalic and Yes atraumatic <ROSETTA Zambrano - Last Filed: 07/13/20 11:27> Eyes: Sclerae: sclerae normal <ROSETTA Zambrano - Last Filed: 07/13/20 11:27> Chest: Chest palpation & inspection: normal inspection of the chest <ROSETTA Zambrano - Last Filed: 07/13/20 11:27> Resp: Effort & Inspection: normal respiratory effort and no respiratory distress <ROSETTA Zambrano - Last Filed: 07/13/20 11:27> Cardio: Rate: regular rate <ROSETTA Zambrano - Last Filed: 07/13/20 11:27> Rhythm: abnormal rhythm (irregular) <ROSETTA Zambrano - Last Filed: 07/13/20 11:27> GI: Inspection: No distended <ROSETTA Zambrano - Last Filed: 07/13/20 11:27> Palpation (GI): Soft to palpation, nontender and no guarding <ROSETTA Zambrano - Last Filed: 07/13/20 11:27> Neuro: General: patient oriented x3 <ROSETTA Zambrano - Last Filed: 07/13/20 11:27> Cranial nerves: Yes CN's II-XII intact bilaterally and Yes Bilaterally intact EOM present <ROSETTA Zambrano - Last Filed: 07/13/20 11:27> Extrem: General: Yes normal to inspection <ROSETTA Zambrano - Last Filed: 07/13/20 11:27> Objective Data Current Medications Generic Name Dose Route Start Last Admin Trade Name Freq PRN Reason Stop Dose Admin Acetaminophen 650 mg 07/12/20 15:43 07/12/20 21:58 Acetaminophen 325 Mg Tablet PO 650 mg Q6H PRN Administration Pain, Mild (Pain Scale 1-3) Albuterol Sulfate 2 puff 07/12/20 15:43 Albuterol Sulfate 90 Mcg 8 Gm Inhaler INHALE RQ4H PRN Shortness of Breath Amiodarone HCl 200 mg 07/13/20 09:00 07/13/20 08:13 Amiodarone Hcl 200 Mg Tablet PO 200 mg DAILY [facility] Administration Apixaban 5 mg 07/12/20 21:00 07/13/20 08:12 Apixaban 5 Mg Tablet PO 5 mg BID [facility] Administration Atorvastatin Calcium 40 mg 07/12/20 21:00 07/12/20 20:58 Atorvastatin Calcium 40 Mg Tablet PO 40 mg BEDTIME [facility] Administration Benzocaine 1 lozenge 07/13/20 09:47 Throat Lozenge, Medicated Lozenge MUCOUS MEM Q2H PRN Sore Throat Benzonatate 200 mg 07/13/20 10:40 Benzonatate 100 Mg Capsule PO TID [facility] Dexamethasone Sodium Phosphate 6 mg 07/13/20 09:00 07/13/20 08:13 Dexamethasone Sod Phosphate/Pf 10 Mg/Ml Vial IVPUSH 6 mg DAILY [facility] Administration Docusate Sodium 100 mg 07/13/20 09:00 07/13/20 08:12 Docusate Sodium 100 Mg Capsule PO 100 mg DAILY [facility] Administration Fluoxetine HCl 20 mg 07/13/20 09:00 07/13/20 08:13 Fluoxetine Hcl 20 Mg Capsule PO 20 mg DAILY [facility] Administration Guaifenesin 10 ml 07/13/20 09:47 Guaifenesin 200 Mg/10 Ml 10 Ml Liquid PO Q4H PRN Cough Guaifenesin/Codeine Phosphate 5 ml 07/13/20 11:00 Guaifen/Codeine Sf 200/20/10ml 10 Ml Liquid PO 07/15/20 10:59 Q6H [facility] Hydrochlorothiazide 25 mg 07/13/20 09:00 07/13/20 08:12 Hydrochlorothiazide 25 Mg Tablet PO 25 mg DAILY [facility] Administration Protocol Insulin Glargine 35 unit 07/12/20 21:00 07/12/20 20:57 Insulin Glargine,Hum.Rec.Anlog 100 Unit/Ml 10 Ml Vial SUBCUT 35 unit BEDTIME [facility] Administration Insulin Human Lispro 0 unit 07/12/20 16:30 07/13/20 08:12 Insulin Lispro 100 Unit/Ml 3 Ml Vial SUBCUT 4 unit QIDACHS [facility] Administration Protocol Losartan Potassium 100 mg 07/13/20 09:00 07/13/20 08:12 Losartan Potassium 50 Mg Tablet PO 100 mg DAILY [facility] Administration Protocol Metoprolol Succinate 100 mg 07/12/20 21:00 07/13/20 08:13 Metoprolol Succinate Er 100 Mg Tab.Er.24h PO 100 mg BID [facility] Administration Protocol Pharmacy Consult 1 each 07/12/20 09:19 Consult Rx Perform Med Rec MISCELLANE ONCE PRN Consult order Senna 17.2 mg 07/12/20 15:43 Sennosides 8.6 Mg Tablet PO BEDTIME PRN Constipation Sodium Chloride 3 ml 07/12/20 16:00 07/13/20 08:13 0.9 % Sodium Chloride Flush 3 Ml Syringe IVFLUSH 3 ml QSHIFT [facility] Administration Trazodone HCl 50 mg 07/13/20 09:47 Trazodone Hcl 50 Mg Tablet PO BEDTIME PRN sleep <ROSETTA Zambrano - Last Filed: 07/13/20 11:27> Labs CBC & Chem 7: : 07/12/20 10:15 07/12/20 10:15 <ROSETTA Zambrano Last Filed: 07/13/20 11:27> Assessment and Plan (1) Acute respiratory failure with hypoxia: Status: Acute <ROSETTA Zambrano Last Filed: 07/13/20 11:27> (2) Pneumonia due to COVID-19 virus: Status: Acute <ROSETTA Zambrano Last Filed: 07/13/20 11:27> Assessment and Plan: This is a 54-year-old male with history of diabetes, cardiomyopathy status post ICD with recovered ejection fraction, hypertension, morbid obesity, atrial fibrillation on Eliquis, RACHELLE, recent diagnosis of COVID-19 who presents to the emergency department with multiple complaints found to be hypoxic and in atrial fibrillation with rapid ventricular response. Acute respiratory failure with hypoxia COVID-19 Inflammatory markers elevated LDH 356, Ferritin 278, CRP 22.29 -Consult to ID pending -Continue IV dexamethasone -supplemental oxygen as needed -prn albuterol -add cough suppressant Atrial fibrillation with rapid ventricular response Rate now controlled, likely r/t missing am medication yesterday -tele monitoring -continue home dose of metoprolol, amiodarone -continue anticoagulation with Eliquis RACHELLE needs repeat sleep study for new CPAP machine, so not currently using at home -Will order CPAP for bedtime Diabetes with hyperglycemia Sugars elevated, likely r/t steroids -SSI, POCs, ada diet -Will up titrate Lantus CM s/p ICD with recovered EF -continue metoprolol, losartan HTN blood pressure controlled -continue HCTZ, metoprolol, losartan Morbid obesity BMI 43.3. Likely contributing to current respiratory status and hypoxia. Mood -continue fluoxetine HLD -continue statin DVT prophylaxis-Eliquis Code status-full code This case was discussed with <ROSETTA Zambrano - Last Filed: 07/13/20 11:27> the patient was seen and evaluated with ROSETTA Jeff. I agree with her note, assessment and plan with the following. a 54 years old male with PMH diabetes, CMP post ICD, RACHELLE, AFib among others who presented to the hospital with worsening shortness of breath associated with nausea vomiting. Hypoxic respiratory failure COVID-19 infection Continue dexamethasone O2 supplement as needed to get ID evaluation for in the severe Rest of evaluations by PA note. <Duncan Hahn MD - Last Filed: 07/13/20 14:57>
[2020-07-13] MEDS: guaiFEN/Codeine SF 200/20/10ML 10 ML LIQUID 5 ML PO ×3 (11:24→23:07)
[2020-07-13] MEDS: Benzonatate 100 MG CAPSULE 200 MG PO ×3 (11:24→20:40)
[2020-07-13 16:17] LABS: Glucose, Whole Blood 322 mg/dL (60-115)
[2020-07-13 19:44] LABS: Glucose, Whole Blood 453 mg/dL (60-115)
[2020-07-13] MEDS: Insulin Glargine,Hum.rec.anlog 100 UNIT/ML 10 ML VIAL 40 UNIT SUBCUT (20:39)
[2020-07-13] MEDS: Atorvastatin Calcium 40 MG TABLET PO (20:40)
[2020-07-13] MEDS: Insulin Lispro 100 UNIT/ML 3 ML VIAL 10 UNIT SUBCUT (20:40)
[2020-07-14] VITALS (9 sets, daily range): BP systolic 114–132; BP diastolic 64–85; PULSE 80–106; RESP 16–20; TEMP 36–37.2; O2SAT 92–96
[2020-07-14] MEDS: 0.9 % Sodium Chloride Flush 3 ML SYRINGE IVFLUSH ×4 (00:11→21:17)
[2020-07-14 07:00] LABS: Hematocrit 43.8 % (42-52); Hemoglobin 13.7 g/dl (14.0-18.0); Mean Corpuscular HGB Conc 31.3 g/dl (31.0-36.0); Mean Corpuscular Hemoglobin 25.3 pg (27.0-33.0); Mean Platelet Volume 11.6 fL (9.4-12.4); Platelet Count 227 X10*3/uL (160-400); Red Blood Count 5.41 X10*6/uL (4.60-5.80); Red Cell Distribution Width 13.8 % (11.0-16.0); White Blood Count 12.2 X10*3/uL (4.8-10.8)
[2020-07-14 07:18] LABS: Glucose, Whole Blood 218 mg/dL (60-115)
[2020-07-14 07:19] LABS: Anion Gap 15 (12-20); Blood Urea Nitrogen 14 mg/dL (9-16); Calcium 8.2 mg/dL (8.4-10.2); Carbon Dioxide 23 mmol/L (22-29); Chloride 102 mmol/L (96-108); Creatinine Clr Calc Pharmacy 172.6; Estimated Glomerular Filt Rate > 60; Glucose Random 202 mg/dL (60-115); Potassium 4.3 mmol/L (3.3-5.1); Sodium 136 mmol/L (135-145)
[2020-07-14] MEDS: Insulin Lispro 100 UNIT/ML 3 ML VIAL SUBCUT ×4 (07:35→21:16)
[2020-07-14] MEDS: Benzonatate 100 MG CAPSULE 200 MG PO ×3 (07:36→21:15)
[2020-07-14] MEDS: Amiodarone HCL 200 MG TABLET PO (07:36)
[2020-07-14] MEDS: Apixaban 5 MG TABLET PO ×2 (07:36→21:23)
[2020-07-14] MEDS: Losartan Potassium 50 MG TABLET 100 MG PO (07:36)
[2020-07-14] MEDS: Metoprolol Succinate ER 100 MG TAB.ER.24H PO ×2 (07:36→21:15)
[2020-07-14] MEDS: hydroCHLOROthiazide 25 MG TABLET PO (07:36)
[2020-07-14] MEDS: Docusate Sodium 100 MG CAPSULE PO (07:36)
[2020-07-14] MEDS: FLUoxetine HCl 20 MG CAPSULE PO (07:37)
[2020-07-14] MEDS: Acetaminophen 325 MG TABLET 650 MG PO (07:37)
[2020-07-14] MEDS: Fluticasone Propionate Nasal 16 GM SPRAY 1 SPRAY NOSTRIL-B ×2 (11:04→21:17)
[2020-07-14 11:21] LABS: Glucose, Whole Blood 326 mg/dL (60-115)
--- NOTE | 2020-07-14 11:23 | MHC.CM.PN ---
Per ROUNDS discussion, Patient is not yet medically cleared for dc (IV Decadron, Increasing O2 needs).Home is the goal for dc and CM will follow for possible need to adjust the dc plan.
[2020-07-14] MEDS: guaiFEN/Codeine SF 200/20/10ML 10 ML LIQUID 5 ML PO ×3 (11:36→22:52)
--- NOTE | 2020-07-14 14:18 | P.PNIM_ITS ---
Subjective Subjective Date of Service: 07/14/20 Interval History: the patient was seen and evaluated this morning Laying in bed, feels mild dyspnea Complaining of cough and increased lethargy but requiring oral supplement to 5 L of oxygen Denies any fever, chills or chest pain No reported other overnight events. Systemic review: No fever, chills or weakness No chest pain, palpitation Dyspnea and coughing No abdominal pain, nausea or vomiting No urinary symptoms No any rash or wounds Physical Exam Vital Signs: Vital Signs: Last Vital Signs Temp 98.1 F 07/14/20 11:24 Pulse 88 07/14/20 11:24 Resp 19 07/14/20 11:24 BP 125/81 07/14/20 11:24 Pulse Ox 95 07/14/20 11:24 Oxygen Flow Rate 2 07/12/20 08:50 Body Mass Index 43.2 Const: Other: Constitutional : Alert, oriented, not in distress Neck : Normal inspection, Supple Cardiovascular : RRR, S1 S2, no lower extremity edema Respiratory : Decreased bilateral air entry, no crackles, wheezes or rhonchi Gastrointestinal: soft, lax, Normal bowel sounds, Non tender Skin : Warm/Dry, No rash Neurological : Alert & oriented x3, No focal deficit Objective Data Current Medications Generic Name Dose Route Start Last Admin Trade Name Freq PRN Reason Stop Dose Admin Acetaminophen 650 mg 07/12/20 15:43 07/14/20 07:37 Acetaminophen 325 Mg Tablet PO 650 mg Q6H PRN Administration Pain, Mild (Pain Scale 1-3) Albuterol Sulfate 2 puff 07/12/20 15:43 Albuterol Sulfate 90 Mcg 8 Gm Inhaler INHALE RQ4H PRN Shortness of Breath Amiodarone HCl 200 mg 07/13/20 09:00 07/14/20 07:36 Amiodarone Hcl 200 Mg Tablet PO 200 mg DAILY [facility] Administration Apixaban 5 mg 07/12/20 21:00 07/14/20 07:36 Apixaban 5 Mg Tablet PO 5 mg BID [facility] Administration Atorvastatin Calcium 40 mg 07/12/20 21:00 07/13/20 20:40 Atorvastatin Calcium 40 Mg Tablet PO 40 mg BEDTIME [facility] Administration Benzocaine 1 lozenge 07/13/20 09:47 Throat Lozenge, Medicated Lozenge MUCOUS MEM Q2H PRN Sore Throat Benzonatate 200 mg 07/13/20 10:40 07/14/20 07:36 Benzonatate 100 Mg Capsule PO 200 mg TID [facility] Administration Dexamethasone Sodium Phosphate 6 mg 07/13/20 09:00 07/14/20 07:37 Dexamethasone Sod Phosphate/Pf 10 Mg/Ml Vial IVPUSH 6 mg DAILY [facility] Administration Docusate Sodium 100 mg 07/13/20 09:00 07/14/20 07:36 Docusate Sodium 100 Mg Capsule PO 100 mg DAILY [facility] Administration Fluoxetine HCl 20 mg 07/13/20 09:00 07/14/20 07:37 Fluoxetine Hcl 20 Mg Capsule PO 20 mg DAILY [facility] Administration Fluticasone Propionate 1 spray 07/14/20 09:50 07/14/20 11:04 Fluticasone Propionate Nasal 16 Gm [place] NOSTRIL-B 1 spray BID [facility] Administration Guaifenesin 10 ml 07/13/20 09:47 Guaifenesin 200 Mg/10 Ml 10 Ml Liquid PO Q4H PRN Cough Guaifenesin/Codeine Phosphate 5 ml 07/13/20 11:00 07/14/20 11:36 Guaifen/Codeine Sf 200/20/10ml 10 Ml Liquid PO 07/15/20 10:59 5 ml Q6H [facility] Administration Hydrochlorothiazide 25 mg 07/13/20 09:00 07/14/20 07:36 Hydrochlorothiazide 25 Mg Tablet PO 25 mg DAILY [facility] Administration Protocol Insulin Glargine 45 unit 07/14/20 21:00 Insulin Glargine,Hum.Rec.Anlog 100 Unit/Ml 10 Ml Vial SUBCUT BEDTIME [facility] Insulin Human Lispro 0 unit 07/12/20 16:30 07/14/20 11:37 Insulin Lispro 100 Unit/Ml 3 Ml Vial SUBCUT 8 unit QIDACHS [facility] Administration Protocol Losartan Potassium 100 mg 07/13/20 09:00 07/14/20 07:36 Losartan Potassium 50 Mg Tablet PO 100 mg DAILY [facility] Administration Protocol Metoprolol Succinate 100 mg 07/12/20 21:00 07/14/20 07:36 Metoprolol Succinate Er 100 Mg Tab.Er.24h PO 100 mg BID [facility] Administration Protocol Pharmacy Consult 1 each 07/12/20 09:19 Consult Rx Perform Med Rec MISCELLANE ONCE PRN Consult order Senna 17.2 mg 07/12/20 15:43 Sennosides 8.6 Mg Tablet PO BEDTIME PRN Constipation Sodium Chloride 3 ml 07/12/20 16:00 07/14/20 07:37 0.9 % Sodium Chloride Flush 3 Ml Syringe IVFLUSH 3 ml QSHIFT [facility] Administration Trazodone HCl 50 mg 07/13/20 09:47 Trazodone Hcl 50 Mg Tablet PO BEDTIME PRN sleep Labs CBC & Chem 7: 07/14/20 06:20 07/14/20 06:20 Microbiology Microbiology Results: Microbiology 07/12/20 10:38 Blood - Venous Blood Culture - Preliminary No growth after 48 hours. 07/12/20 10:15 Blood - Venous Blood Culture - Preliminary No growth after 48 hours. Assessment and Plan (1) Acute respiratory failure with hypoxia: Status: Acute (2) Pneumonia due to COVID-19 virus: Status: Acute Assessment and Plan: This is a 54-year-old male with history of diabetes, cardiomyopathy status post ICD with recovered ejection fraction, hypertension, morbid obesity, atrial fibrillation on Eliquis, RACHELLE, recent diagnosis of COVID-19 who presents to the emergency department with multiple complaints found to be hypoxic and in atrial fibrillation with rapid ventricular response. Acute respiratory failure with hypoxia COVID-19 Inflammatory markers elevated LDH 356, Ferritin 278, CRP 22.29 Continue IV dexamethasone T3 Wean oxygen down as tolerated prn albuterol add cough suppressant Id input appreciated, start remdesivir Atrial fibrillation with rapid ventricular response Rate now controlled tele monitoring continue home dose of metoprolol, amiodarone continue anticoagulation with Eliquis RACHELLE needs repeat sleep study for new CPAP machine, so not currently using at home Will order CPAP for bedtime Diabetes with hyperglycemia Sugars elevated, likely r/t steroids SSI, POCs, ada diet Will up titrate Lantus CM s/p ICD with recovered EF continue metoprolol, losartan HTN blood pressure controlled continue HCTZ, metoprolol, losartan Morbid obesity BMI 43.3. Likely contributing to current respiratory status and hypoxia. Mood continue fluoxetine HLD continue statin DVT prophylaxis Eliquis
--- NOTE | 2020-07-14 14:50 | P.CNID_ITS ---
History of Present Illness Data of Consult Service Date: 07/14/20 Requesting physician: Duncan Hahn Primary Care Provider: Viv Richardson MD [facility] Reason for consult: hypoxia He presents to hospital with shortness of breath for a week There is report COVID positive on 07/01 He has had myalgias and weakness positive earlier apparently although patient says only sick a week Review of Systems Review of Systems: Yes all other systems are reviewed and are negative PMFSH Past Medical History Medical History Diabetes mellitus History of cardiomyopathy History of congestive heart failure HTN (hypertension) Hx of cardiac pacemaker ICD (implantable cardioverter-defibrillator) in place Morbid obesity RACHELLE (obstructive sleep apnea) Paroxysmal atrial fibrillation Family History Family History Father CVD (cardiovascular disease) Mother No problems noted. Family history: reviewed and not pertinent Surgical History Surgical History Hx of cardiac cath Social History Social History Household Members: Spouse and Family Housing: Apartment Smoking Status: Never smoker Smoked in Last 30 Days: No Use of substances other than those prescribed or required for medical reasons: No Currently Displaying Signs/Symptoms of Drug Intoxication Withdrawal: No Have you been hit, kicked, punched, or otherwise hurt by someone within the past year? If so, by whom?: No Do you feel safe in your current relationship?: Yes Is there a partner from a previous relationship who is making you feel unsafe now?: No Are you made to feel afraid or neglected: No Advance Directives: No Advance Directives Information Provided: No Do you have thoughts of harming others: None Do you have a plan to hurt others: No Plan Recently lost weight without trying: No service: No Current occupational status: disabled Meds Allergies Allergy/AdvReac Type Severity Reaction Status Date / Time No Known Allergies Allergy Mild NOT Verified 07/12/20 08:50 APPLICABLE Active Medications: Current Medications Generic Name Dose Route Start Last Admin Trade Name Freq PRN Reason Stop Dose Admin Acetaminophen 650 mg 07/12/20 15:43 07/14/20 07:37 Acetaminophen 325 Mg Tablet PO 650 mg Q6H PRN Administration Pain, Mild (Pain Scale 1-3) Albuterol Sulfate 2 puff 07/12/20 15:43 Albuterol Sulfate 90 Mcg 8 Gm Inhaler INHALE RQ4H PRN Shortness of Breath Amiodarone HCl 200 mg 07/13/20 09:00 07/14/20 07:36 Amiodarone Hcl 200 Mg Tablet PO 200 mg DAILY [facility] Administration Apixaban 5 mg 07/12/20 21:00 07/14/20 07:36 Apixaban 5 Mg Tablet PO 5 mg BID [facility] Administration Atorvastatin Calcium 40 mg 07/12/20 21:00 07/13/20 20:40 Atorvastatin Calcium 40 Mg Tablet PO 40 mg BEDTIME [facility] Administration Benzocaine 1 lozenge 07/13/20 09:47 Throat Lozenge, Medicated Lozenge MUCOUS MEM Q2H PRN Sore Throat Benzonatate 200 mg 07/13/20 10:40 07/14/20 07:36 Benzonatate 100 Mg Capsule PO 200 mg TID [facility] Administration Dexamethasone Sodium Phosphate 6 mg 07/13/20 09:00 07/14/20 07:37 Dexamethasone Sod Phosphate/Pf 10 Mg/Ml Vial IVPUSH 6 mg DAILY [facility] Administration Docusate Sodium 100 mg 07/13/20 09:00 07/14/20 07:36 Docusate Sodium 100 Mg Capsule PO 100 mg DAILY [facility] Administration Fluoxetine HCl 20 mg 07/13/20 09:00 07/14/20 07:37 Fluoxetine Hcl 20 Mg Capsule PO 20 mg DAILY [facility] Administration Fluticasone Propionate 1 spray 07/14/20 09:50 07/14/20 11:04 Fluticasone Propionate Nasal 16 Gm [place] NOSTRIL-B 1 spray BID [facility] Administration Guaifenesin 10 ml 07/13/20 09:47 Guaifenesin 200 Mg/10 Ml 10 Ml Liquid PO Q4H PRN Cough Guaifenesin/Codeine Phosphate 5 ml 07/13/20 11:00 07/14/20 11:36 Guaifen/Codeine Sf 200/20/10ml 10 Ml Liquid PO 07/15/20 10:59 5 ml Q6H [facility] Administration Hydrochlorothiazide 25 mg 07/13/20 09:00 07/14/20 07:36 Hydrochlorothiazide 25 Mg Tablet PO 25 mg DAILY [facility] Administration Protocol Remdesivir 200 mg/ Sodium 210 mls @ 105 mls/hr 07/14/20 15:00 Chloride IV 07/14/20 16:59 ONCE ONE Remdesivir 100 mg/ Sodium 230 mls @ 115 mls/hr 07/15/20 15:00 Chloride IV 07/18/20 16:59 Q24H [facility] Insulin Glargine 45 unit 07/14/20 21:00 Insulin Glargine,Hum.Rec.Anlog 100 Unit/Ml 10 Ml Vial SUBCUT BEDTIME [facility] Insulin Human Lispro 0 unit 07/12/20 16:30 07/14/20 11:37 Insulin Lispro 100 Unit/Ml 3 Ml Vial SUBCUT 8 unit QIDACHS [facility] Administration Protocol Losartan Potassium 100 mg 07/13/20 09:00 07/14/20 07:36 Losartan Potassium 50 Mg Tablet PO 100 mg DAILY [facility] Administration Protocol Metoprolol Succinate 100 mg 07/12/20 21:00 07/14/20 07:36 Metoprolol Succinate Er 100 Mg Tab.Er.24h PO 100 mg BID [facility] Administration Protocol Pharmacy Consult 1 each 07/12/20 09:19 Consult Rx Perform Med Rec MISCELLANE ONCE PRN Consult order Senna 17.2 mg 07/12/20 15:43 Sennosides 8.6 Mg Tablet PO BEDTIME PRN Constipation Sodium Chloride 3 ml 07/12/20 16:00 07/14/20 07:37 0.9 % Sodium Chloride Flush 3 Ml Syringe IVFLUSH 3 ml QSHIFT [facility] Administration Trazodone HCl 50 mg 07/13/20 09:47 Trazodone Hcl 50 Mg Tablet PO BEDTIME PRN sleep Home Medications Medication Instructions Recorded Confirmed Last Taken Type atorvastatin 40 mg tablet 40 mg PO BEDTIME 02/04/20 07/12/20 07/12/20 10:00 History hydrochlorothiazide 25 mg tablet 25 mg PO QAM 02/04/20 07/12/20 07/12/20 10:00 History insulin aspart U-100 100 unit/mL 20 unit SUBCUT TID 02/04/20 07/12/20 Unknown History subcutaneous solution insulin glargine 100 unit/mL 45 unit SUBCUT BEDTIME 02/04/20 07/12/20 Unknown History subcutaneous solution metformin 1,000 mg tablet 1,000 mg PO BID 02/04/20 07/12/20 07/12/20 10:00 History metoprolol succinate 100 mg 100 mg PO BID 02/04/20 07/12/20 07/12/20 10:00 History tablet,extended release 24 hr losartan 100 mg tablet 100 mg PO QAM 05/23/20 07/12/20 07/12/20 10:00 History fluoxetine 1 cap PO QAM 07/12/20 07/12/20 07/12/20 10:00 History Physical Exam Vital Signs: Vital Signs: Last Vital Signs Temp 98.1 F 07/14/20 11:24 Pulse 88 07/14/20 11:24 Resp 19 07/14/20 11:24 BP 125/81 07/14/20 11:24 Pulse Ox 95 07/14/20 11:24 Oxygen Flow Rate 2 07/12/20 08:50 Body Mass Index 43.2 Const: General: cooperative HENMT: Ears: hearing grossly normal bilaterally Mouth: Normal oral and palatal mucosa present Eyes: General: appearance normal, both eyes and all related structures Resp: Effort & Inspection: normal respiratory effort Cardio: Rate: regular rate Rhythm: regular rhythm GI: Palpation (GI): Soft to palpation and nontender Skin: General skin exam: no rashes or lesions noted Results Labs CBC & Chem 7: 07/14/20 06:20 07/14/20 06:20 Labs: Short CBC 07/14/20 Range/Units 06:20 WBC 12.2 H (4.8-10.8) X10*3/uL Hgb 13.7 L (14.0-18.0) g/dl Hct 43.8 (42-52) % Plt Count 227 D (160-400) X10*3/uL BMP 07/14/20 06:20 Sodium 136 Potassium 4.3 Chloride 102 Carbon Dioxide 23 BUN 14 Creatinine 0.71 Calcium 8.2 L Microbiology Microbiology Results: Microbiology 07/12/20 10:38 Blood - Venous Blood Culture - Preliminary No growth after 48 hours. 07/12/20 10:15 Blood - Venous Blood Culture - Preliminary No growth after 48 hours. Assessment and Plan (1) Acute respiratory failure with hypoxia: Problem details: He has shortness of breath ,but is over 10 days illness with COVID positive on 07/01 He may have residual lung and cardiac toxicity from virus Status: Acute Hold Remdesivir due to duration of illness Oxygen as needed May give steroids
[2020-07-14 16:25] LABS: Glucose, Whole Blood 290 mg/dL (60-115)
[2020-07-14 19:59] LABS: Glucose, Whole Blood 395 mg/dL (60-115)
[2020-07-14] MEDS: Insulin Glargine,Hum.rec.anlog 100 UNIT/ML 10 ML VIAL 45 UNIT SUBCUT (21:16)
[2020-07-14] MEDS: Atorvastatin Calcium 40 MG TABLET PO (21:23)
[2020-07-15] VITALS (8 sets, daily range): BP systolic 126–139; BP diastolic 83–88; PULSE 84–100; RESP 19–23; TEMP 35.8–36.6; O2SAT 89–94
[2020-07-15] MEDS: guaiFEN/Codeine SF 200/20/10ML 10 ML LIQUID 5 ML PO (05:04)
[2020-07-15 06:16] LABS: Hematocrit 41.5 % (42-52); Hemoglobin 13.3 g/dl (14.0-18.0); Mean Corpuscular Hemoglobin 25.9 pg (27.0-33.0); Mean Corpuscular Volume 80.7 fL (80-98); Platelet Count 224 X10*3/uL (160-400); Red Blood Count 5.14 X10*6/uL (4.60-5.80); Red Cell Distribution Width 13.8 % (11.0-16.0); White Blood Count 9.2 X10*3/uL (4.8-10.8)
[2020-07-15 06:49] LABS: Anion Gap 15 (12-20); Blood Urea Nitrogen 14 mg/dL (9-16); C Reactive Protein 7.19 mg/dL (< or = 0.50); Calcium 8.2 mg/dL (8.4-10.2); Carbon Dioxide 25 mmol/L (22-29); Chloride 101 mmol/L (96-108); Creatinine Clr Calc Pharmacy 167.9; Estimated Glomerular Filt Rate > 60; Glucose Random 230 mg/dL (60-115); Sodium 137 mmol/L (135-145)
[2020-07-15 07:26] LABS: Glucose, Whole Blood 277 mg/dL (60-115)
[2020-07-15] MEDS: 0.9 % Sodium Chloride Flush 3 ML SYRINGE IVFLUSH ×3 (07:38→20:12)
[2020-07-15] MEDS: Benzonatate 100 MG CAPSULE 200 MG PO ×3 (07:39→20:09)
[2020-07-15] MEDS: Docusate Sodium 100 MG CAPSULE PO (07:39)
[2020-07-15] MEDS: Apixaban 5 MG TABLET PO ×2 (07:39→20:09)
[2020-07-15] MEDS: Insulin Lispro 100 UNIT/ML 3 ML VIAL SUBCUT ×4 (07:41→20:10)
[2020-07-15] MEDS: hydroCHLOROthiazide 25 MG TABLET PO (07:41)
[2020-07-15] MEDS: Losartan Potassium 50 MG TABLET 100 MG PO (07:45)
[2020-07-15] MEDS: Metoprolol Succinate ER 100 MG TAB.ER.24H PO ×2 (07:45→20:10)
[2020-07-15] MEDS: Amiodarone HCL 200 MG TABLET PO (07:45)
[2020-07-15 08:53] LABS: Lactate Dehydrogenase 426 U/L (118-273)
[2020-07-15] MEDS: Insulin Glargine,Hum.rec.anlog 100 UNIT/ML 10 ML VIAL 8 UNIT SUBCUT (09:34)
[2020-07-15] MEDS: Throat Lozenge, Medicated LOZENGE 1 LOZENGE MUCOUS MEM ×4 (11:19→22:52)
[2020-07-15 11:46] LABS: Glucose, Whole Blood 343 mg/dL (60-115)
--- NOTE | 2020-07-15 13:38 | P.PNIM_ITS ---
Subjective Subjective Date of Service: 07/15/20 Interval History: the patient was seen and evaluated this morning Laying in bed, feels mild dyspnea and mild respiratory distress but feels better Complaining of cough and increased lethargy but requiring oral supplement to 7 L of oxygen Denies any fever, chills or chest pain No reported other overnight events. Systemic review: No fever, chills or weakness No chest pain, palpitation Dyspnea and coughing No abdominal pain, nausea or vomiting No urinary symptoms No any rash or wounds Physical Exam Vital Signs: Vital Signs: Last Vital Signs Temp 97.9 F 07/15/20 11:53 Pulse 95 07/15/20 11:53 Resp 22 H 07/15/20 11:53 BP 126/85 07/15/20 11:53 Pulse Ox 92 07/15/20 11:53 Oxygen Flow Rate 2 07/12/20 08:50 Body Mass Index 43.2 Const: Other: Constitutional : Alert, oriented, not in distress Neck : Normal inspection, Supple Cardiovascular : RRR, S1 S2, no lower extremity edema Respiratory : Decreased bilateral air entry, no crackles, wheezes or rhonchi, in mild respiratory distress requiring 7 L of oxygen Gastrointestinal: soft, lax, Normal bowel sounds, Non tender Skin : Warm/Dry, No rash Neurological : Alert & oriented x3, No focal deficit Objective Data Current Medications Generic Name Dose Route Start Last Admin Trade Name Freq PRN Reason Stop Dose Admin Acetaminophen 650 mg 07/12/20 15:43 07/14/20 07:37 Acetaminophen 325 Mg Tablet PO 650 mg Q6H PRN Administration Pain, Mild (Pain Scale 1-3) Albuterol Sulfate 2 puff 07/12/20 15:43 Albuterol Sulfate 90 Mcg 8 Gm Inhaler INHALE RQ4H PRN Shortness of Breath Amiodarone HCl 200 mg 07/13/20 09:00 07/15/20 07:45 Amiodarone Hcl 200 Mg Tablet PO 200 mg DAILY REMIGIO Administration Apixaban 5 mg 07/12/20 21:00 07/15/20 07:39 Apixaban 5 Mg Tablet PO 5 mg BID REMIGIO Administration Atorvastatin Calcium 40 mg 07/12/20 21:00 07/14/20 21:23 Atorvastatin Calcium 40 Mg Tablet PO 40 mg BEDTIME REMIGIO Administration Benzocaine 1 lozenge 07/13/20 09:47 Throat Lozenge, Medicated Lozenge MUCOUS MEM Q2H PRN Sore Throat Benzocaine 1 lozenge 07/15/20 12:00 07/15/20 11:19 Throat Lozenge, Medicated Lozenge MUCOUS MEM 1 lozenge RQ4H REMIGIO Administration Benzonatate 200 mg 07/13/20 10:40 07/15/20 07:39 Benzonatate 100 Mg Capsule PO 200 mg TID REMIGIO Administration Dexamethasone Sodium Phosphate 6 mg 07/13/20 09:00 07/15/20 07:38 Dexamethasone Sod Phosphate/Pf 10 Mg/Ml Vial IVPUSH 6 mg DAILY REMIGIO Administration Docusate Sodium 100 mg 07/13/20 09:00 07/15/20 07:39 Docusate Sodium 100 Mg Capsule PO 100 mg DAILY REMIGIO Administration Fluoxetine HCl 20 mg 07/13/20 09:00 07/15/20 07:54 Fluoxetine Hcl 20 Mg Capsule PO Not Given DAILY REMIGIO Fluticasone Propionate 1 spray 07/14/20 09:50 07/15/20 07:54 Fluticasone Propionate Nasal 16 Gm [place] NOSTRIL-B Not Given BID REMIGIO Guaifenesin 10 ml 07/13/20 09:47 Guaifenesin 200 Mg/10 Ml 10 Ml Liquid PO Q4H PRN Cough Hydrochlorothiazide 25 mg 07/13/20 09:00 07/15/20 07:41 Hydrochlorothiazide 25 Mg Tablet PO 25 mg DAILY [facility] Administration Protocol Insulin Glargine 45 unit 07/14/20 21:00 07/14/20 21:16 Insulin Glargine,Hum.Rec.Anlog 100 Unit/Ml 10 Ml Vial SUBCUT 45 unit BEDTIME [facility] Administration Insulin Human Lispro 0 unit 07/12/20 16:30 07/15/20 11:19 Insulin Lispro 100 Unit/Ml 3 Ml Vial SUBCUT 8 unit QIDACHS [facility] Administration Protocol Losartan Potassium 100 mg 07/13/20 09:00 07/15/20 07:45 Losartan Potassium 50 Mg Tablet PO 100 mg DAILY [facility] Administration Protocol Metoprolol Succinate 100 mg 07/12/20 21:00 07/15/20 07:45 Metoprolol Succinate Er 100 Mg Tab.Er.24h PO 100 mg BID [facility] Administration Protocol Pharmacy Consult 1 each 07/12/20 09:19 Consult Rx Perform Med Rec MISCELLANE ONCE PRN Consult order Senna 17.2 mg 07/12/20 15:43 Sennosides 8.6 Mg Tablet PO BEDTIME PRN Constipation Sodium Chloride 3 ml 07/12/20 16:00 07/15/20 07:38 0.9 % Sodium Chloride Flush 3 Ml Syringe IVFLUSH 3 ml QSHIFT REMIGIO Administration Trazodone HCl 50 mg 07/13/20 09:47 Trazodone Hcl 50 Mg Tablet PO BEDTIME PRN sleep Labs CBC & Chem 7: 07/15/20 05:55 07/15/20 05:55 Microbiology Microbiology Results: Microbiology 07/12/20 10:38 Blood - Venous Blood Culture - Preliminary No growth after 48 hours. 07/12/20 10:15 Blood - Venous Blood Culture - Preliminary No growth after 48 hours. Assessment and Plan (1) Acute respiratory failure with hypoxia: Status: Acute (2) Pneumonia due to COVID-19 virus: Status: Acute Assessment and Plan: This is a 54-year-old male with history of diabetes, cardiomyopathy status post ICD with recovered ejection fraction, hypertension, morbid obesity, atrial fibrillation on Eliquis, RACHELLE, recent diagnosis of COVID-19 who presents to the emergency department with multiple complaints found to be hypoxic and in atrial fibrillation with rapid ventricular response. Acute respiratory failure with hypoxia COVID-19 Inflammatory markers elevated LDH 420, Ferritin 278, CRP going down to 7 Continue IV dexamethasone D4 Wean oxygen down as tolerated prn albuterol add cough suppressant Id input appreciated, does not qualify for remdesivir Atrial fibrillation with rapid ventricular response Rate now controlled tele monitoring continue home dose of metoprolol, amiodarone continue anticoagulation with Eliquis RACHELLE needs repeat sleep study for new CPAP machine, so not currently using at home Will order CPAP for bedtime Diabetes with hyperglycemia Sugars elevated, likely r/t steroids SSI, POCs, ada diet Will up titrate Lantus CM s/p ICD with recovered EF continue metoprolol, losartan HTN blood pressure controlled continue HCTZ, metoprolol, losartan Morbid obesity BMI 43.3. Likely contributing to current respiratory status and hypoxia. Mood continue fluoxetine HLD continue statin DVT prophylaxis Eliquis
[2020-07-15 15:56] LABS: Glucose, Whole Blood 351 mg/dL (60-115)
[2020-07-15 19:37] LABS: Glucose, Whole Blood 455 mg/dL (60-115)
[2020-07-15] MEDS: Atorvastatin Calcium 40 MG TABLET PO (20:09)
[2020-07-15] MEDS: Insulin Glargine,Hum.rec.anlog 100 UNIT/ML 10 ML VIAL 45 UNIT SUBCUT (20:10)
[2020-07-15] MEDS: Fluticasone Propionate Nasal 16 GM SPRAY 1 SPRAY NOSTRIL-B (20:20)
[2020-07-16] VITALS (11 sets, daily range): BP systolic 110–142; BP diastolic 72–84; PULSE 75–115; RESP 17–20; TEMP 36.1–37; O2SAT 91–97
[2020-07-16] MEDS: Throat Lozenge, Medicated LOZENGE 1 LOZENGE MUCOUS MEM ×3 (03:29→20:56)
[2020-07-16 07:45] LABS: Glucose, Whole Blood 191 mg/dL (60-115)
[2020-07-16] MEDS: Metoprolol Succinate ER 100 MG TAB.ER.24H PO ×2 (07:56→20:57)
[2020-07-16] MEDS: hydroCHLOROthiazide 25 MG TABLET PO (07:56)
[2020-07-16] MEDS: Benzonatate 100 MG CAPSULE 200 MG PO ×3 (07:56→20:55)
[2020-07-16] MEDS: Docusate Sodium 100 MG CAPSULE PO (07:56)
[2020-07-16] MEDS: Losartan Potassium 50 MG TABLET 100 MG PO (07:56)
[2020-07-16] MEDS: Amiodarone HCL 200 MG TABLET PO (07:57)
[2020-07-16] MEDS: Apixaban 5 MG TABLET PO ×2 (07:57→20:56)
[2020-07-16] MEDS: 0.9 % Sodium Chloride Flush 3 ML SYRINGE IVFLUSH ×3 (08:05→21:03)
[2020-07-16] MEDS: Insulin Lispro 100 UNIT/ML 3 ML VIAL SUBCUT ×4 (08:05→20:56)
[2020-07-16] MEDS: Insulin Glargine,Hum.rec.anlog 100 UNIT/ML 10 ML VIAL 15 UNIT SUBCUT (08:15)
[2020-07-16 08:24] LABS: Anion Gap 14 (12-20); Blood Urea Nitrogen 14 mg/dL (9-16); Calcium 8.7 mg/dL (8.4-10.2); Carbon Dioxide 27 mmol/L (22-29); Chloride 101 mmol/L (96-108); Creatinine Clr Calc Pharmacy 165.6; Estimated Glomerular Filt Rate > 60; Glucose Random 167 mg/dL (60-115); Potassium 3.8 mmol/L (3.3-5.1); Sodium 138 mmol/L (135-145)
[2020-07-16 11:37] LABS: Glucose, Whole Blood 316 mg/dL (60-115)
--- NOTE | 2020-07-16 13:56 | MHC.CM.PN ---
DP Male 54 DX covid+ DP home no services. His will provide transportation. LOC r/t need for supplemental O2. A home O2 eval will be done prior to discharge. CM will follow to assess for changes in dc needs.
--- NOTE | 2020-07-16 14:53 | P.PNIM_ITS ---
Subjective Subjective Date of Service: 07/16/20 Interval History: the patient was seen and evaluated this morning Laying in bed, feels better today with decreasing cough Decrease oxygen supplement to 5 L this morning Denies any fever, chills or chest pain No reported other overnight events. Systemic review: No fever, chills or weakness No chest pain, palpitation Dyspnea and coughing No abdominal pain, nausea or vomiting No urinary symptoms No any rash or wounds Physical Exam Vital Signs: Vital Signs: Last Vital Signs Temp 96.9 F 07/16/20 12:00 Pulse 85 07/16/20 12:00 Resp 18 07/16/20 12:00 BP 110/74 07/16/20 12:00 Pulse Ox 94 07/16/20 12:00 Oxygen Flow Rate 2 07/12/20 08:50 Body Mass Index 43.2 Const: Other: Constitutional : Alert, oriented, not in distress Neck : Normal inspection, Supple Cardiovascular : RRR, S1 S2, no lower extremity edema Respiratory : Decreased bilateral air entry, no crackles, wheezes or rhonchi, in mild respiratory distress requiring 5 L of oxygen Gastrointestinal: soft, lax, Normal bowel sounds, Non tender Skin : Warm/Dry, No rash Neurological : Alert & oriented x3, No focal deficit Objective Data Current Medications Generic Name Dose Route Start Last Admin Trade Name Freq PRN Reason Stop Dose Admin Acetaminophen 650 mg 07/12/20 15:43 07/14/20 07:37 Acetaminophen 325 Mg Tablet PO 650 mg Q6H PRN Administration Pain, Mild (Pain Scale 1-3) Albuterol Sulfate 2 puff 07/12/20 15:43 Albuterol Sulfate 90 Mcg 8 Gm Inhaler INHALE RQ4H PRN Shortness of Breath Amiodarone HCl 200 mg 07/13/20 09:00 07/16/20 07:57 Amiodarone Hcl 200 Mg Tablet PO 200 mg DAILY REMIGIO Administration Apixaban 5 mg 07/12/20 21:00 07/16/20 07:57 Apixaban 5 Mg Tablet PO 5 mg BID REMIGIO Administration Atorvastatin Calcium 40 mg 07/12/20 21:00 07/15/20 20:09 Atorvastatin Calcium 40 Mg Tablet PO 40 mg BEDTIME REMIGIO Administration Benzocaine 1 lozenge 07/13/20 09:47 Throat Lozenge, Medicated Lozenge MUCOUS MEM Q2H PRN Sore Throat Benzocaine 1 lozenge 07/15/20 12:00 07/16/20 11:45 Throat Lozenge, Medicated Lozenge MUCOUS MEM 1 lozenge RQ4H REMIGIO Administration Benzonatate 200 mg 07/13/20 10:40 07/16/20 07:56 Benzonatate 100 Mg Capsule PO 200 mg TID REMIGIO Administration Dexamethasone Sodium Phosphate 6 mg 07/13/20 09:00 07/16/20 07:57 Dexamethasone Sod Phosphate/Pf 10 Mg/Ml Vial IVPUSH 6 mg DAILY REMIGIO Administration Docusate Sodium 100 mg 07/13/20 09:00 07/16/20 07:56 Docusate Sodium 100 Mg Capsule PO 100 mg DAILY REMIGIO Administration Fluoxetine HCl 20 mg 07/13/20 09:00 07/16/20 08:05 Fluoxetine Hcl 20 Mg Capsule PO Not Given DAILY REMIGIO Fluticasone Propionate 1 spray 07/14/20 09:50 07/16/20 08:15 Fluticasone Propionate Nasal 16 Gm [place] NOSTRIL-B Not Given BID REMIGIO Guaifenesin 10 ml 07/13/20 09:47 Guaifenesin 200 Mg/10 Ml 10 Ml Liquid PO Q4H PRN Cough Hydrochlorothiazide 25 mg 07/13/20 09:00 07/16/20 07:56 Hydrochlorothiazide 25 Mg Tablet PO 25 mg DAILY [facility] Administration Protocol Insulin Glargine 45 unit 07/14/20 21:00 07/15/20 20:10 Insulin Glargine,Hum.Rec.Anlog 100 Unit/Ml 10 Ml Vial SUBCUT 45 unit BEDTIME REMIGIO Administration Insulin Glargine 15 unit 07/16/20 09:00 07/16/20 08:15 Insulin Glargine,Hum.Rec.Anlog 100 Unit/Ml 10 Ml Vial SUBCUT 15 unit DAILY [facility] Administration Insulin Human Lispro 0 unit 07/12/20 16:30 07/16/20 11:45 Insulin Lispro 100 Unit/Ml 3 Ml Vial SUBCUT 8 unit QIDACHS [facility] Administration Protocol Losartan Potassium 100 mg 07/13/20 09:00 07/16/20 07:56 Losartan Potassium 50 Mg Tablet PO 100 mg DAILY [facility] Administration Protocol Metoprolol Succinate 100 mg 07/12/20 21:00 07/16/20 07:56 Metoprolol Succinate Er 100 Mg Tab.Er.24h PO 100 mg BID REMIGIO Administration Protocol Pharmacy Consult 1 each 07/12/20 09:19 Consult Rx Perform Med Rec MISCELLANE ONCE PRN Consult order Senna 17.2 mg 07/12/20 15:43 Sennosides 8.6 Mg Tablet PO BEDTIME PRN Constipation Sodium Chloride 3 ml 07/12/20 16:00 07/16/20 08:05 0.9 % Sodium Chloride Flush 3 Ml Syringe IVFLUSH 3 ml QSHIFT REMIGIO Administration Trazodone HCl 50 mg 07/13/20 09:47 Trazodone Hcl 50 Mg Tablet PO BEDTIME PRN sleep Labs CBC & Chem 7: 07/15/20 05:55 07/16/20 07:49 Microbiology Microbiology Results: Microbiology 07/12/20 10:38 Blood - Venous Blood Culture - Preliminary No growth after 48 hours. 07/12/20 10:15 Blood - Venous Blood Culture - Preliminary No growth after 48 hours. Assessment and Plan (1) Acute respiratory failure with hypoxia: Status: Acute (2) Pneumonia due to COVID-19 virus: Status: Acute Assessment and Plan: This is a 54-year-old male with history of diabetes, cardiomyopathy status post ICD with recovered ejection fraction, hypertension, morbid obesity, atrial fibrillation on Eliquis, RACHELLE, recent diagnosis of COVID-19 who presents to the emergency department with multiple complaints found to be hypoxic and in atrial fibrillation with rapid ventricular response. Acute respiratory failure with hypoxia COVID-19 Inflammatory markers elevated LDH 420, Ferritin 278, CRP going down to 7 Continue IV dexamethasone D5 Wean oxygen down as tolerated To do home O2 evaluation prn albuterol add cough suppressant Id input appreciated, does not qualify for remdesivir Atrial fibrillation with rapid ventricular response Rate now controlled tele monitoring continue home dose of metoprolol, amiodarone continue anticoagulation with Eliquis RACHELLE needs repeat sleep study for new CPAP machine, so not currently using at home CPAP for bedtime Diabetes with hyperglycemia Sugars elevated, likely r/t steroids SSI, POCs, ada diet Will up titrate Lantus CM s/p ICD with recovered EF continue metoprolol, losartan HTN blood pressure controlled continue HCTZ, metoprolol, losartan Morbid obesity BMI 43.3. Likely contributing to current respiratory status and hypoxia. Mood continue fluoxetine HLD continue statin DVT prophylaxis Suly Over[place], to do home O2 evaluation today with possible discharge tomorrow if he continues to improve.
[2020-07-16 16:13] LABS: Glucose, Whole Blood 330 mg/dL (60-115)
[2020-07-16 20:18] LABS: Glucose, Whole Blood 316 mg/dL (60-115)
[2020-07-16] MEDS: Atorvastatin Calcium 40 MG TABLET PO (20:56)
[2020-07-16] MEDS: Insulin Glargine,Hum.rec.anlog 100 UNIT/ML 10 ML VIAL 45 UNIT SUBCUT (20:56)
[2020-07-17 03:57] VITALS: BP 114/71; PULSE 88; RESP 20; TEMP 37; O2SAT 97
[2020-07-17 07:00] LABS: Hemoglobin 14.5 g/dl (14.0-18.0); Mean Corpuscular HGB Conc 32.2 g/dl (31.0-36.0); Mean Corpuscular Hemoglobin 25.7 pg (27.0-33.0); Mean Corpuscular Volume 79.6 fL (80-98); Mean Platelet Volume 11.3 fL (9.4-12.4); Platelet Count 221 X10*3/uL (160-400); Red Blood Count 5.65 X10*6/uL (4.60-5.80); Red Cell Distribution Width 13.7 % (11.0-16.0); White Blood Count 8.2 X10*3/uL (4.8-10.8)
[2020-07-17 07:06] LABS: Glucose, Whole Blood 215 mg/dL (60-115)
[2020-07-17 07:14] VITALS: BP 116/82; PULSE 90; RESP 18; TEMP 36.2; O2SAT 99
[2020-07-17 07:52] LABS: Anion Gap 14 (12-20); Blood Urea Nitrogen 13 mg/dL (9-16); C Reactive Protein 4.29 mg/dL (< or = 0.50); Calcium 8.3 mg/dL (8.4-10.2); Carbon Dioxide 27 mmol/L (22-29); Chloride 101 mmol/L (96-108); Creatinine Clr Calc Pharmacy 167.9; Estimated Glomerular Filt Rate > 60; Glucose Random 179 mg/dL (60-115); Potassium 3.8 mmol/L (3.3-5.1); Sodium 138 mmol/L (135-145)
[2020-07-17] MEDS: 0.9 % Sodium Chloride Flush 3 ML SYRINGE IVFLUSH (08:31)
[2020-07-17 08:32] VITALS: BP 116/82; PULSE 90
[2020-07-17] MEDS: Insulin Lispro 100 UNIT/ML 3 ML VIAL SUBCUT ×2 (08:32→11:41)
[2020-07-17] MEDS: Insulin Glargine,Hum.rec.anlog 100 UNIT/ML 10 ML VIAL 15 UNIT SUBCUT (08:32)
[2020-07-17] MEDS: Amiodarone HCL 200 MG TABLET PO (08:32)
[2020-07-17] MEDS: Throat Lozenge, Medicated LOZENGE 1 LOZENGE MUCOUS MEM ×2 (08:32→11:41)
[2020-07-17 08:33] VITALS: BP 116/82; PULSE 90
[2020-07-17] MEDS: hydroCHLOROthiazide 25 MG TABLET PO (08:33)
[2020-07-17] MEDS: Benzonatate 100 MG CAPSULE 200 MG PO (08:33)
[2020-07-17] MEDS: Metoprolol Succinate ER 100 MG TAB.ER.24H PO (08:33)
[2020-07-17] MEDS: Losartan Potassium 50 MG TABLET 100 MG PO (08:33)
[2020-07-17] MEDS: Docusate Sodium 100 MG CAPSULE PO (08:34)
[2020-07-17] MEDS: Apixaban 5 MG TABLET PO (08:34)
[2020-07-17 09:43] LABS: Lactate Dehydrogenase 441 U/L (118-273)
[2020-07-17 11:18] LABS: Glucose, Whole Blood 282 mg/dL (60-115)
[2020-07-17 11:38] VITALS: BP 112/60; PULSE 97; RESP 18; TEMP 36.1; O2SAT 97
[2020-07-17 13:24] VITALS: PULSE 110; PULSE 125; PULSE 130; PULSE 132; O2SAT 88; O2SAT 91; O2SAT 93; O2SAT 97
--- NOTE | 2020-07-17 14:18 | MHC.CM.PN ---
Addendum entered by Elaina Ibarra 07/17/20 14:20: IMM addressed. Original Note: Patient will be discharged home today new with O2 from [facility] via BLS transport at 4pm. Patient and nurse aware.
--- NOTE | 2020-07-17 14:56 | PM.DS ---
DS: Providers Provider Date of Service: 07/17/20 Date of admission: 07/12/20 15:09 Primary care physician: Viv Richardson MD Consults: 07/12/20 21:35 Consult Respiratory Therapy Routine Reason for consultation: needs cpap at home 07/13/20 08:04 Consult to Infectious Diseases Routine Consulting Provider: Thelma Salguero Reason for consultation: Covid19 for need of Remdesivir DS: Diagnosis Discharge Diagnosis (1) Acute respiratory failure with hypoxia: Status: Acute (2) Pneumonia due to COVID-19 virus: Status: Acute DS: Medications Discharge Medications Home Medications: Home Medications Medication Instructions Recorded Confirmed atorvastatin 40 mg tablet 40 mg PO BEDTIME 02/04/20 07/12/20 hydrochlorothiazide 25 mg tablet 25 mg PO QAM 02/04/20 07/12/20 insulin aspart U-100 100 unit/mL 20 unit SUBCUT TID 02/04/20 07/12/20 subcutaneous solution insulin glargine 100 unit/mL 45 unit SUBCUT BEDTIME 02/04/20 07/12/20 subcutaneous solution metformin 1,000 mg tablet 1,000 mg PO BID 02/04/20 07/12/20 metoprolol succinate 100 mg 100 mg PO BID 02/04/20 07/12/20 tablet,extended release 24 hr losartan 100 mg tablet 100 mg PO QAM 05/23/20 07/12/20 fluoxetine 1 cap PO QAM 07/12/20 07/12/20 Previous Rx's Medication Instructions Recorded apixaban 5 mg tablet 5 mg PO BID 90 Days #180 tab 03/25/20 amiodarone 200 mg tablet 200 mg PO QAM #30 tab 05/20/20 albuterol sulfate [Ventolin HFA] 2 puff INHALATION RQ4H PRN #6.7 g 07/17/20 dexamethasone 6 mg PO DAILY #4 tab 07/17/20 guaifenesin 200 mg PO Q4H PRN #473 ml 07/17/20 DS: Summary Hospital Course Hospital Course: History of presenting illness Chief Complaint: Nausea, vomiting, shortness of breath <ROSETTA Zambrano - Last Filed: 07/12/20 15:58> This is a 54-year-old male multiple medical problems who presents to the emergency department today with complaints of nausea, vomiting, shortness of breath. Patient was diagnosed with coronavirus on July 01. For the past 2 days he has been having nausea and vomiting with generalized abdominal pain. He also reports intermittent dizziness, shortness of breath, sore throat, cough. He also reports feeling sweaty although he has not taken his temperature at home. He was noted to be hypoxic with an oxygen saturation of 88% on room air. Chest quoc was consistent with coronavirus. Inflammatory markers were elevated at 278, LDH 356, CRP 22.29. He was started on IV antibiotics and given a dose of IV dexamethasone. It was also noted to be in atrial fibrillation with rapid ventricular response. He had missed his home medications and was given his home doses of metoprolol and amiodarone. He continued to be tachycardic and therefore he received a dose of IV Cardizem and his heart rate improved. He denies any palpitations, chest pain. PMHx Diabetes mellitus History of cardiomyopathy History of congestive heart failure HTN (hypertension) Hx of cardiac pacemaker ICD (implantable cardioverter-defibrillator) in place Morbid obesity RACHELLE (obstructive sleep apnea) Paroxysmal atrial fibrillation 54-year-old male with history of diabetes, cardiomyopathy status post ICD with recovered ejection fraction, hypertension, morbid obesity, atrial fibrillation on Eliquis, RACHELLE, recent diagnosis of COVID-19 who presents to the emergency department with multiple complaints found to be hypoxic and in atrial fibrillation with rapid ventricular response. Acute respiratory failure with hypoxia due to COVID-19 infection, patient noted to have elevated Inflammatory markers LDH 420, Ferritin 278, patient treated with IV dexamethasone and supportive care with oxygen as needed albuterol and cough medication, patient seen by infectious disease and did not qualify for remdesivir, patient responded well to above treatment his oxygenation has improved Addressed he is not requiring oxygen but with ambulation he will require 3 L of oxygen by nasal cannula, home oxygen is being arranged and patient is being discharged home on by mouth dexamethasone for 4 more days he has been instructed to continue isolation and to use mask and to continue activity as tolerated. Atrial fibrillation patient has history of atrial fibrillation on metoprolol amiodarone and Eliquis that has been continued RACHELLE as per patient he needs repeat sleep study study for a new CPAP machine, therefore currently not using CPAP at home. Diabetes on insulin patient noted to have elevated blood sugars likely due to steroids he has been recommend to continue home medications and follow diabetic diet In regard to cardiomyopathy status post ICD and hypertension he has been continued on all home medications. Morbid obesity BMI 43.3, Likely contributing to current respiratory status and hypoxia. Mood continue fluoxetine Time Spent with Patient Time attestation: Total time spent providing and/or coordinating discharge services: Discharge coordination time: Greater than 30 minutes Physical Exam Vital Signs: Vital Signs: Last Vital Signs Temp 97 F 07/17/20 11:38 Pulse 97 07/17/20 11:38 Resp 18 07/17/20 11:38 BP 112/60 07/17/20 11:38 Pulse Ox 97 07/17/20 11:38 Oxygen Flow Rate 2 07/12/20 08:50 Body Mass Index 43.2 Constitutional : Alert, oriented, no acute distress. Neck : Normal inspection, no JVD. Cardiovascular : RRR, S1 S2, no lower extremity edema Respiratory : Clear to auscultation, no respiratory distress Gastrointestinal: soft, Normal bowel sounds, Non tender Skin : Warm/Dry, No rash. Neurological : Alert & oriented x3, No focal deficit. DS: Data Data Completed and Pending Labs on day of discharge: Laboratory Results - last 24 hr 07/16/20 07/16/20 07/17/20 16:10 20:13 05:37 WBC 8.2 RBC 5.65 Hgb 14.5 Hct 45.0 MCV 79.6 L MCH 25.7 L MCHC 32.2 RDW 13.7 Plt Count 221 MPV 11.3 Absolute Nucleated RBC 0.000 Nucleated RBC % (auto) 0.0 Sodium Potassium Chloride Carbon Dioxide Anion Gap BUN Creatinine Estim Creat Clear Calc Estimated GFR POC Glucose 330 H 316 H Random Glucose Calcium Lactate Dehydrogenase C-Reactive Protein 07/17/20 07/17/20 07/17/20 05:37 07:02 11:14 WBC RBC Hgb Hct MCV MCH MCHC RDW Plt Count MPV Absolute Nucleated RBC Nucleated RBC % (auto) Sodium 138 Potassium 3.8 Chloride 101 Carbon Dioxide 27 Anion Gap 14 BUN 13 Creatinine 0.73 Estim Creat Clear Calc 167.9 Estimated GFR > 60 POC Glucose 215 H 282 H Random Glucose 179 H Calcium 8.3 L Lactate Dehydrogenase 441 H C-Reactive Protein 4.29 H Discharge Plan Discharge Patient Disposition: Home, Self-Care Discharge Diagnosis: Acute respiratory failure with hypoxia due to COVID-19 Referrals: Viv Richardson MD [Primary Care Provider] - 1 Week Discharge Medications: New guaifenesin 100 mg/5 mL Liquid 200 mg PO Q4H PRN (Reason: Cough) Qty: 473 RF: 0 dexamethasone 6 mg tablet 6 mg PO DAILY Qty: 4 RF: 0 albuterol sulfate [Ventolin HFA] 90 mcg/actuation Hfa Aerosol Inhaler 2 puff inhalation RQ4H PRN (Reason: Shortness Of Breath) Qty: 6.7 RF: 0 Continued apixaban [Eliquis] 5 mg tablet 5 mg PO BID 90 Days Qty: 180 RF: 1 amiodarone 200 mg tablet 200 mg PO QAM Qty: 30 RF: 5 fluoxetine 20 mg capsule 1 cap PO QAM RF: 0 losartan 100 mg tablet 100 mg PO QAM RF: 0 metformin 1,000 mg tablet 1,000 mg PO BID RF: 0 metoprolol succinate 100 mg tablet extended release 24 hr 100 mg PO BID RF: 0 atorvastatin 40 mg tablet 40 mg PO BEDTIME RF: 0 insulin glargine 100 unit/mL solution 45 unit subcut BEDTIME RF: 0 insulin aspart U-100 100 unit/mL solution 20 unit subcut TID RF: 0 hydrochlorothiazide 25 mg tablet 25 mg PO QAM RF: 0 Discharge Orders: Discharge Order (Routine); Ordered 07/17/20 Ordered By: Juan Francisco Duke Diet: diabetic diet Activity on Discharge: As tolerated Stand Alone Forms: Patient Portal Discharge page Care Plan Goals: You are going home on oxygen 3 L with activity, no oxygen while at rest, continue daily activities as tolerated, return to check with worsening shortness of breath. Health Concerns: COVID-19 infection with hypoxic respiratory failure, continue mask and continue isolation for 4 more days, take cough medication and dexamethasone as ordered Rest, eat healthy and activity as tolerated Plan of Treatment: Follow-up with primary care physician Assessment: See discharge note
== END 2020-07-17 16:00 | disposition home or self-care (01) | DRG 177 ==
LOC: HO.ED 14:04 → HO.EDOVER 15:17 → HO.IMC 18:11
PROVIDERS: Physician Assistant; Admitting Provider Student in an Organized Health Care Education/Training Program; Emergency Provider Emergency Medicine; PCP Internal Medicine; Visit Provider Hospitalist
DX: U07.1 COVID-19 (principal); J12.82 Pneumonia due to coronavirus disease 2019; J96.01 Acute respiratory failure with hypoxia; Z68.41 Body mass index [BMI] 40.0-44.9, adult; I42.9 Cardiomyopathy, unspecified; I48.91 Unspecified atrial fibrillation; E11.65 Type 2 diabetes mellitus with hyperglycemia; E78.5 Hyperlipidemia, unspecified; E66.01 Morbid (severe) obesity due to excess calories; G47.33 Obstructive sleep apnea (adult) (pediatric); Z95.810 Presence of automatic (implantable) cardiac defibrillator; Z79.4 Long term (current) use of insulin; Z79.01 Long term (current) use of anticoagulants; Z79.899 Other long term (current) drug therapy
CPT/HCPCS: 36415; 71045; 80048; 80076; 82728; 82947; 83605; 83615; 83735; 83880; 84145; 84484; 85025; 85027; 85379; 85610; 85730; 86140; 87040; 93005; 94660; 96365; 96366; 96368; 96375; 99285; J0696; J1100; J2405

== ENCOUNTER → 2020-08-22 10:45 | Outpatient (BNVA) | payer OTHER, SELFPAY | PROVIDERS: PCP Internal Medicine; Visit Provider Internal Medicine Cardiovascular Disease | DX: Z45.02 Encounter for adjustment and management of automatic implantable cardiac defibrillator (principal); I48.0 Paroxysmal atrial fibrillation; Z86.79 Personal history of other diseases of the circulatory system | CPT/HCPCS: 93005; 99212 ==

== ENCOUNTER → 2020-09-12 10:52 | Outpatient (REF) | payer OTHER, SELFPAY ==
--- NOTE | 2020-09-12 10:55 | CA_ITS ---
Transthoracic Echocardiogram Patient (Last, First, Middle): Sridhar Krishnamurthy, Gender: Male Date of : 1965 Age: 54 Procedure Date: 09/12/2020 Procedure Type: Transthoracic Echocardiogram Location: OP Height: 172.72 cm Weight: 143.34 kg BSA: 2.48 m2 Heart Rate: bpm BP: 124 / 62 mmHg Occupational Therapy Specialist: Referring MD: Lokesh Yanez MD Symptoms: I48.0 - Paroxysmal atrial fibrillation Conclusions: - Normal left ventricular cavity size. - The left ventricular systolic function is low normal. - The basal inferior segment is akinetic. - There is mild dilatation of the ascending aorta. Small plaque is seen in the sinuses of Valsalva. Findings Procedure Information The patient receives contrast. Left Ventricle Normal left ventricular cavity size. There is mildly increased left ventricular wall thickness. The left ventricular systolic function is low normal. The visually estimated ejection fraction is between 50-55%. There is evidence of regional wall motion abnormalities. Abnormal diastolic function is noted. Spectral Doppler is indicative of a pseudonormal filling pattern. E/E prime ratio is between 8 and 15 consistent with indeterminate filling pressures. Wall Motion Rest Echo Findings The basal inferior segment is akinetic. Right Ventricle Normal right ventricular cavity size and systolic function. There is a pacemaker wire seen in the right ventricle. Atria The left atrium is normal in size. Aortic Valve Normal aortic valve structure and function. There is no aortic valve stenosis. There is no aortic valve regurgitation. Mitral Valve Normal mitral valve structure and function. There is no mitral valve regurgitation. There is no mitral valve stenosis. Pulmonic Valve The pulmonic valve is likely normal. Tricuspid Valve Normal tricuspid valve structure and function. There is trace tricuspid valve regurgitation. Normal right atrial pressure. There is no evidence of pulmonary hypertension. Great Vessels There is mild dilatation of the ascending aorta. Small plaque is seen in the sinuses of Valsalva. The visualized portions of the pulmonary artery and branches are normal. Venous The inferior vena cava is normal in size and collapses greater than 50% with inspiration. Pericardium/Pleural There is no evidence of pericardial effusion. Prior Study Comparison Changes noted compared to prior study dated: 05/08/2019. EF 50-55%, basal inferior wall akinetic. Measurements 2D Linear Measurements RVIDd: 3.67 RVIDd Index: 1.48 IVSd: 1.28 0.6-0.9/0.6-1.0 cm LVIDd: 5.73 3.9-5.3/4.2-5.9 cm LVIDd Index: 2.31 2.4-3.2/2.2-3.1 cm/m2 LVIDs: 3.86 2.0-3.6 cm LVPWd: 1.31 0.7-1.1 cm Ao Root: 3.40 2.1-3.5 cm LA Diam: 4.90 2.7-3.8/3.0-4.0 cm LAIDs Index: 1.98 1.5-2.3 cm/m2 LV Mass: 403.31 67-162/88-224 g LV Mass Index: 162.62 43-95/49-115 g/m2 LVOT Diam: 2.50 3.0+(-)1.3 cm 2D Systolic Function EF 4C: 46.40 >55% EF 2C: 42.30 >55% EF BiP: 45.90 >55% Mitral Valve MV Pk E: 0.57 MV PK A: 0.48 MV Decel Time: 393.00 E/A: 1.20 E'Lateral: 6.09 E'Medial: 5.55 E/E' Med: 10.30 E/E' Lat: 9.40 Aortic Valve AoV Pk Joni: 1.39 AoV Mn Joni: 1.03 AoV VTI: 0.31 AoV Pk Grad: 8.00 Aov Mn Grad: 5.00 SAYDA Cont.VTI: 2.94 LVOT LVOT Pk Joni: 0.85 LVOT Mn Joni: 0.55 LVOT VTI: 0.19 LVOT Pk Grad: 3.00 LVOT Mn Grad: 1.00 LVOT Diam: 2.50 LVOT Area: 4.91 Diastolic Function MV Pk E: 0.57 MV Pk A: 0.48 E/A: 1.20 E'Medial: 5.55 E/E' Med: 10.30 E' Laterial: 6.09 E/E' Lat: 9.40 Tricuspid Valve TR Pk Joni: 2.57 TR Pk Grad: 26.00 RA Press: 8.00 RVSP: 34.00 Great Vessels Aorta Ao Root-2D: 3.40 2.0-3.7 cm Ao Asc: 3.60 2.1-3.4 cm Updated in Other Vendor System with Status of Final Ehsan Rincon MD electronically signed on 09/13/2020 6:51:26 PM with status of Final
== END ==
LOC: HO.CARD 10:52
PROVIDERS: PCP Internal Medicine; Visit Provider Internal Medicine Cardiovascular Disease
DX: I48.0 Paroxysmal atrial fibrillation (principal); Z95.810 Presence of automatic (implantable) cardiac defibrillator; Z86.79 Personal history of other diseases of the circulatory system
CPT/HCPCS: 93306; Q9957

== ENCOUNTER 2020-10-02 11:02 | Outpatient (REF) | payer OTHER, SELFPAY ==
[2020-10-02 13:22] LABS: Estimated Average Glucose 346 mg/dL; Hemoglobin A1c % 13.7 %
[2020-10-02 13:32] LABS: Alanine Aminotransferase 15 U/L (0-40); Albumin Level 3.9 g/dL (3.5-5.0); Alkaline Phosphatase 99 U/L (39-117); Anion Gap 14 (12-20); Aspartate Amino Transferase 13 U/L (5-37); Bilirubin Total 0.7 mg/dL (0.0-1.0); Blood Urea Nitrogen 15 mg/dL (9-16); Calcium 9.8 mg/dL (8.4-10.2); Carbon Dioxide 25 mmol/L (22-29); Chloride 103 mmol/L (96-108); Estimated Glomerular Filt Rate > 60; Glucose Random 307 mg/dL (60-115); Potassium 4.2 mmol/L (3.3-5.1); Sodium 138 mmol/L (135-145); Total Protein 6.6 g/dL (6.5-8.0)
== END 2020-10-02 11:03 | disposition home or self-care (01) ==
LOC: HO.LAB 11:02
PROVIDERS: PCP Internal Medicine; Visit Provider Internal Medicine
DX: E11.9 Type 2 diabetes mellitus without complications (principal); I10 Essential (primary) hypertension; U07.1 COVID-19
CPT/HCPCS: 36415; 80053; 83036

== ENCOUNTER → 2020-10-07 12:51 | Outpatient (BNVA) | payer OTHER, SELFPAY | PROVIDERS: PCP Internal Medicine; Visit Provider Nurse Practitioner Family | DX: I48.0 Paroxysmal atrial fibrillation (principal); G47.33 Obstructive sleep apnea (adult) (pediatric); E66.01 Morbid (severe) obesity due to excess calories; I10 Essential (primary) hypertension; Z86.79 Personal history of other diseases of the circulatory system; Z95.810 Presence of automatic (implantable) cardiac defibrillator; Z79.899 Other long term (current) drug therapy | CPT/HCPCS: 99212 ==

== ENCOUNTER 2020-12-16 12:38 | Outpatient (REF) | payer OTHER, SELFPAY ==
[2020-12-16 13:13] LABS: Hematocrit 42.5 % (42-52); Hemoglobin 13.7 g/dl (14.0-18.0); Mean Corpuscular HGB Conc 32.2 g/dl (31.0-36.0); Mean Corpuscular Hemoglobin 26.2 pg (27.0-33.0); Mean Corpuscular Volume 81.3 fL (80-98); Platelet Count 177 X10*3/uL (160-400); Red Blood Count 5.23 X10*6/uL (4.60-5.80); Red Cell Distribution Width 13.5 % (11.0-16.0)
[2020-12-16 13:16] LABS: WBC ABN SCTR FOR CBC 1
[2020-12-16 13:47] LABS: Alanine Aminotransferase 19 U/L (0-40); Alkaline Phosphatase 98 U/L (39-117); Anion Gap 14 (12-20); Aspartate Amino Transferase 12 U/L (5-37); Bilirubin Total 0.6 mg/dL (0.0-1.0); Blood Urea Nitrogen 13 mg/dL (9-16); Calcium 9.4 mg/dL (8.4-10.2); Carbon Dioxide 23 mmol/L (22-29); Chloride 106 mmol/L (96-108); Cholesterol 140 mg/dL; Estimated Glomerular Filt Rate > 60; Glucose Random 346 mg/dL (60-115); HDL Cholesterol 54 mg/dL; LDL Cholesterol Calculated 60 mg/dl; Potassium 4.2 mmol/L (3.3-5.1); Sodium 139 mmol/L (135-145); Total Protein 6.6 g/dL (6.5-8.0); Triglycerides 133 mg/dL
[2020-12-16 14:06] LABS: Thyroid Stimulating Hormone 0.72 uIU/mL (0.32-4.0)
[2020-12-16 14:07] LABS: Hemoglobin A1c % > 14.0 %
[2020-12-16 14:14] LABS: Eosinophils Percent Manual 1 % (0-4); Lymphocytes Percent Manual 26 % (20-40); Monocytes Percent Manual 7 % (2-11); Neutrophils Percent Manual 66 % (45-73)
[2020-12-16 14:15] LABS: Platelet Estimate NORMAL (NORMAL); Platelet Morphology Comment NORMAL; RBC Morphology NORMAL
[2020-12-16 14:37] LABS: Eosinophils Absolute Manual 0.1 X10*3/UL (0.0-0.8); Lymphocytes Absolute Manual 2.1 X10*3/uL (0.6-4.8); Monocytes Absolute Manual 0.6 X10*3/uL (0.0-1.2)
[2020-12-16 14:50] LABS: Creatinine Urine 64.11 mg/dL; Microalbumin Urine < 5.0 mg/L
[2020-12-16 15:08] LABS: Band Neutrophils Percent 0 % (3-5); Neutrophils Absolute Manual 5.3 X10*3/uL (2.2-7.9)
== END 2020-12-16 12:39 | disposition home or self-care (01) ==
LOC: HO.LAB 12:38
PROVIDERS: PCP Internal Medicine; Visit Provider Internal Medicine
DX: E11.65 Type 2 diabetes mellitus with hyperglycemia (principal); E72.20 Disorder of urea cycle metabolism, unspecified; I73.9 Peripheral vascular disease, unspecified; I48.19 Other persistent atrial fibrillation
CPT/HCPCS: 36415; 80053; 80061; 82043; 83036; 84443; 85007; 85027

== ENCOUNTER → 2021-01-06 08:21 | Outpatient (BNVA) | payer OTHER, SELFPAY | PROVIDERS: PCP Internal Medicine; Visit Provider Nurse Practitioner Family | CPT/HCPCS: Q3014 ==

== ENCOUNTER → 2021-01-13 13:00 | Outpatient (BNVA) | payer OTHER, SELFPAY | PROVIDERS: PCP Internal Medicine; Visit Provider Internal Medicine Cardiovascular Disease | DX: Z45.02 Encounter for adjustment and management of automatic implantable cardiac defibrillator (principal); I48.19 Other persistent atrial fibrillation; Z86.79 Personal history of other diseases of the circulatory system | CPT/HCPCS: 93005; 99212 ==

== ENCOUNTER → 2021-02-04 11:09 | Day surgery (SDC) | payer OTHER, SELFPAY ==
[2021-01-30 11:35] VITALS: BMI 50.0
--- NOTE | 2021-02-03 13:37 | HO.ANESPROP2 ---
HPI - Anesthesia Eval Consult details Narrative: 55yo M for Cardioversion ICD in situ Eliquis for afib [facility] Active Problems Active Problems: All Active Problems (Updated 01/13/21 @ 13:46 by Lokesh Yanez MD) Persistent atrial fibrillation (Acute) Acute respiratory failure with hypoxia (Acute) ICD (implantable cardioverter-defibrillator) in place (Acute) History of cardiomyopathy (Acute) HTN (hypertension) (Acute) RACHELLE (obstructive sleep apnea) (Acute) Diabetes mellitus (Acute) Morbid obesity (Acute) Past Medical History Medical History (Updated 01/13/21 @ 13:46 by Lokesh Yanez MD) Diabetes mellitus History of cardiomyopathy History of congestive heart failure HTN (hypertension) Hx of cardiac pacemaker ICD (implantable cardioverter-defibrillator) discharge ICD (implantable cardioverter-defibrillator) in place Morbid obesity RACHELLE (obstructive sleep apnea) Paroxysmal atrial fibrillation Family History Family History Father CVD (cardiovascular disease) Mother No problems noted. Surgical History Surgical History Hx of cardiac cath Social History Social History Household Members: Spouse and Family Housing: Apartment Patient Tobacco Use Status: Never used Tobacco service: No Current occupational status: disabled Meds Allergies Allergy/AdvReac Type Severity Reaction Status Date / Time No Known Allergies Allergy Mild NOT Verified 01/06/21 08:22 APPLICABLE Home Medications Medication Instructions Recorded Confirmed Last Taken Type atorvastatin 40 mg tablet 40 mg PO BEDTIME 02/04/20 01/13/21 07/12/20 10:00 History hydrochlorothiazide 25 mg tablet 25 mg PO QAM 02/04/20 01/13/21 07/12/20 10:00 History insulin aspart U-100 100 unit/mL 20 unit SUBCUT TID 02/04/20 01/06/21 Unknown History subcutaneous solution insulin glargine 100 unit/mL 45 unit SUBCUT BEDTIME 02/04/20 01/06/21 Unknown History subcutaneous solution metformin 1,000 mg tablet 1,000 mg PO BID 02/04/20 01/13/21 07/12/20 10:00 History losartan 100 mg tablet 100 mg PO QAM 05/23/20 01/13/2107/12/21 10:00 History fluoxetine 20 mg capsule 1 cap PO QAM 07/12/20 01/13/21 07/12/20 10:00 History Exam Exam Date and Time: February 03, 2021 1337 Height,Weight and Vital Signs: Height 5 ft 6 in Weight 140.614 kg Pertinent Lab Results Pertinent Lab Results: Laboratory Tests 12/16/20 12/16/20 13:00 13:00 WBC 8.0 Hgb 13.7 L Hct 42.5 Plt Count 177 Sodium 139 Potassium 4.2 Chloride 106 Carbon Dioxide 23 BUN 13 Creatinine 1.16 Narrative Narrative: EKG 12/2020 atrial fibrillation at 93 beats per minute ECHO 08/2020 Conclusions: - Normal left ventricular cavity size. ? - The left ventricular systolic function is low normal.? - The basal inferior segment is akinetic.? - There is mild dilatation of the ascending aorta.? Small plaque is seen in the sinuses of Valsalva.? ? Cardiac Device Check Details: Remote heart failure report generated 01/19/2021.? Heart failure parameters are stable. Assessment and Plan Assessment Anesthesia Assessment: Chart Reviewed
--- NOTE | 2021-02-04 08:30 | MHC.SHP ---
Pre-Procedural Eval Section A Date of Service: 02/04/21 The patient is an INPATIENT: No Changes since office visit: Yes Patient answered all questions; No Cold of Flu in the past 2 weeks, No New Medical Problems and No Changes in Medication The History & Physical has been completed within 30 days and I have reviewed it.: Yes Section B Chief Complaint: afib Allergies: Allergies Allergy/AdvReac Type Severity Reaction Status Date / Time No Known Allergies Allergy Mild NOT Verified 01/06/21 08:22 APPLICABLE Plan I have reviewed the history and physical and performed a pertinent physical examination on my patient. No changes have occurred unless specified.
[2021-02-04 12:14] VITALS: BMI 42.7
[2021-02-04 12:17] VITALS: BP 142/98; PULSE 86; RESP 16; TEMP 36.2; O2SAT 98
[2021-02-04] MEDS: Lactated Ringers 1,000 ML 100 ML IVCONT (12:37)
[2021-02-04 12:39] VITALS: BP 142/98; PULSE 86
[2021-02-04] MEDS: Amiodarone HCL 200 MG TABLET PO (12:39)
[2021-02-04] MEDS: Apixaban 5 MG TABLET PO (12:39)
[2021-02-04 12:44] LABS: Glucose, Whole Blood 252 mg/dL (60-115)
--- NOTE | 2021-02-04 13:27 | ECG_ITS ---
Test Reason : post op Blood Pressure : / mmHG Vent. Rate : 061 BPM Atrial Rate : 061 BPM P-R Int : 174 ms QRS Dur : 088 ms QT Int : 480 ms P-R-T Axes : 054 036 064 degrees QTc Int : 483 ms Sinus rhythm with Premature atrial complexes Low voltage QRS Otherwise normal ECG When compared with ECG of 12-JUL-2020 10:32, Sinus rhythm has replaced Atrial fibrillation Vent. rate has decreased BY 52 BPM Referred By: Lokesh Yanez Electronically Signed By:DARIEN FLORES MD
--- NOTE | 2021-02-04 13:34 | PC.NURSE ---
Patient arrived to [facility] stating that he took none of his AM medications that he normally takes at 0800. Dr. Yanez notified and ordered eliquis and amidarone once PO now. See new orders. These medications administered with a small sip of water. During intake patient converted back and forth from afib/flutter into sinus rhythm twice. When seen at bedside by Dr. Yanez, patient was in sinus rhythm. Dr. Yanez ordered an EKG. EKG obtained which showed normal sinus rhythm. Cardioversion cancelled. Per Dr. Yanez, patient advised to skip all other AM medications that he normally would have taken at 0800 this AM and to start back to normal medication regiment today at 1600 with his evening medications. Dermatology Nurse at bedside during this conversation and patient understood.
== END ==
PROVIDERS: PCP Internal Medicine; Visit Provider Internal Medicine Cardiovascular Disease
DX: I48.19 Other persistent atrial fibrillation (principal); Z53.8 Procedure and treatment not carried out for other reasons; Z95.810 Presence of automatic (implantable) cardiac defibrillator; Z79.01 Long term (current) use of anticoagulants; E11.9 Type 2 diabetes mellitus without complications; Z79.4 Long term (current) use of insulin; Z79.899 Other long term (current) drug therapy; E66.01 Morbid (severe) obesity due to excess calories; Z68.43 Body mass index [BMI] 50.0-59.9, adult
CPT/HCPCS: 82947; 93005

== ENCOUNTER → 2021-03-11 10:44 | Outpatient (REF) | payer OTHER, SELFPAY ==
--- NOTE | 2021-03-11 10:49 | HM_ITS ---
Total monitoring time 2 days and 8 hours. Underlying rhythm is sinus. Average 74/Min. About 34% of the time, rhythm was atrial fibrillation; about 9% of this with rate>100/min. Fastest rate of atrial fibrillation was 115/Min. Rare supraventricular ectopy with minimal burden. 7 short episodes, longest 5 beats. Rare ventricular ectopy with minimal burden. No patient events. MTDD
== END ==
LOC: HO.CARD 10:44
PROVIDERS: Visit Provider Internal Medicine Cardiovascular Disease
DX: I48.19 Other persistent atrial fibrillation (principal)
CPT/HCPCS: 93242

== ENCOUNTER → 2021-03-16 13:59 | Outpatient (BNVA) | payer OTHER, SELFPAY | PROVIDERS: PCP Internal Medicine; Visit Provider Nurse Practitioner Family | DX: I48.19 Other persistent atrial fibrillation (principal); I10 Essential (primary) hypertension; G47.33 Obstructive sleep apnea (adult) (pediatric); E66.01 Morbid (severe) obesity due to excess calories; Z95.810 Presence of automatic (implantable) cardiac defibrillator; Z86.79 Personal history of other diseases of the circulatory system; Z68.41 Body mass index [BMI] 40.0-44.9, adult | CPT/HCPCS: 99212 ==

== ENCOUNTER → 2021-04-27 10:31 | Outpatient (REF) | payer OTHER, SELFPAY ==
--- NOTE | 2021-04-27 10:37 | CA_ITS ---
Transthoracic Echocardiogram Patient (Last, First, Middle): Sridhar Krishnamurthy, Gender: Male Date of : 1965 Age: 55 Procedure Date: 04/27/2021 Procedure Type: Transthoracic Echocardiogram Location: OP Height: 172.72 cm Weight: 143.03 kg BSA: 2.48 m2 Heart Rate: bpm BP: 128 / 73 mmHg Special Agent: FLIP Referring MD: Lokesh Yanez MD Symptoms: I48.19 - Other persistent atrial fibrillation Study Quality: Fair ECG Rhythm: Sinus Conclusions: - The left ventricular systolic function is normal. The calculated ejection fraction is 56% by biplane method. - Normal right ventricular cavity size and systolic function. Findings Procedure Information Contrast agent, definity, is being given per protocol without apparent complications. Left Ventricle Normal left ventricular cavity size. There is normal left ventricular wall thickness. The left ventricular systolic function is normal. The calculated ejection fraction is 56% by biplane method. There is no evidence of regional wall motion abnormalities. Diastolic function is normal for age. Mid inferior wall possibly hypokinetic. Right Ventricle Normal right ventricular cavity size and systolic function. Prior Study Comparison Changes noted compared to prior study dated: 09/12/2020. See comment on wall motion. Measurements 2D Linear Measurements LVIDd: 5.53 3.9-5.3/4.2-5.9 cm LVIDd Index: 2.23 2.4-3.2/2.2-3.1 cm/m2 LVIDs: 3.44 2.0-3.6 cm 2D Systolic Function EF 4C: 53.30 >55% EF 2C: 55.30 >55% EF BiP: 56.00 >55% Mitral Valve MV Pk E: 0.57 MV PK A: 0.64 MV Decel Time: 202.00 E/A: 0.90 E'Lateral: 9.46 E'Medial: 6.96 E/E' Med: 8.20 E/E' Lat: 6.00 PHT: 59.00 MVA PHT: 3.73 Decel [place]: 2.82 Diastolic Function MV Pk E: 0.57 MV Pk A: 0.64 E/A: 0.90 E'Medial: 6.96 E/E' Med: 8.20 E' Laterial: 9.46 E/E' Lat: 6.00 Right Ventricle TAPSE (mm): 2.64 TVS' Joni: 14.10 Updated in Other Vendor System with Status of Final Francisco Barry MD electronically signed on 04/28/2021 9:30:24 AM with status of Final
== END ==
LOC: HO.CARD 10:31
PROVIDERS: PCP Internal Medicine; Visit Provider Internal Medicine Cardiovascular Disease
DX: I48.19 Other persistent atrial fibrillation (principal)
CPT/HCPCS: 93308; Q9957

== ENCOUNTER 2021-05-18 09:56 | Outpatient (REF) | payer OTHER, SELFPAY ==
[2021-05-18 11:01] LABS: Alanine Aminotransferase 25 U/L (0-40); Alkaline Phosphatase 86 U/L (39-117); Anion Gap 12 (12-20); Aspartate Amino Transferase 21 U/L (5-37); Bilirubin Total 0.6 mg/dL (0.0-1.0); Blood Urea Nitrogen 11 mg/dL (9-16); Calcium 9.4 mg/dL (8.4-10.2); Carbon Dioxide 26 mmol/L (22-29); Chloride 104 mmol/L (96-108); Estimated Glomerular Filt Rate > 60; Glucose Random 304 mg/dL (60-115); Potassium 4.1 mmol/L (3.3-5.1); Sodium 138 mmol/L (135-145); Total Protein 6.7 g/dL (6.5-8.0)
[2021-05-18 11:05] LABS: Estimated Average Glucose 332 mg/dL; Hemoglobin A1c % 13.2 %
== END 2021-05-18 09:57 | disposition home or self-care (01) ==
LOC: HO.LAB 09:56
PROVIDERS: PCP Internal Medicine; Visit Provider Internal Medicine
DX: E11.65 Type 2 diabetes mellitus with hyperglycemia (principal); G47.33 Obstructive sleep apnea (adult) (pediatric); I10 Essential (primary) hypertension; R59.0 Localized enlarged lymph nodes
CPT/HCPCS: 36415; 80053; 83036

== ENCOUNTER → 2021-07-02 11:02 | Outpatient (BNVA) | payer OTHER, SELFPAY | PROVIDERS: PCP Internal Medicine; Visit Provider Internal Medicine Endocrinology, Diabetes & Metabolism | DX: E11.9 Type 2 diabetes mellitus without complications (principal); Z79.4 Long term (current) use of insulin | CPT/HCPCS: 82947; 99202 ==

== ENCOUNTER 2021-07-24 07:09 | Outpatient (REF) | payer OTHER, SELFPAY ==
--- NOTE | ~2021-07-24 | XR_ITS ---
EXAMINATION: XR HIP, LEFT CLINICAL INFORMATION: Pain COMPARISON: None TECHNIQUE: Two views of the left hip. FINDINGS: Bone alignment is normal. There is mild arthritis at the left hip joint with joint space narrowing and acetabular osteophyte. The right hip joint is unremarkable. Bones of the pelvis are unremarkable. There is a question of a linear calcification or ossification adjacent to the lesser trochanter seen on one of 3 views. It is uncertain whether this could represent changes from previous trauma the soft tissues or possible avulsion fracture. Clinical correlation recommended. There is soft tissue arterial calcification. XR/XR hip LT w PEL1V IMPRESSION: Mild left hip arthritis Question linear calcification or ossification adjacent to the lesser trochanter. This is seen on one view only. This may represent changes from soft tissue trauma. Avulsion fracture cannot be excluded and clinical correlation is recommended.
== END 2021-07-24 07:10 | disposition home or self-care (01) ==
LOC: HO.HOSX 07:09
PROVIDERS: Visit Provider Physician Assistant
DX: M25.552 Pain in left hip (principal); M43.10 Spondylolisthesis, site unspecified; M41.86 Other forms of scoliosis, lumbar region; S89.012A Salter-Harris Type I physeal fracture of upper end of left tibia, initial encounter for closed fracture; Z79.899 Other long term (current) drug therapy
CPT/HCPCS: 73502; 99202

== ENCOUNTER 2021-10-13 11:12 | Emergency (ER) | payer OTHER, SELFPAY ==
[2021-10-13 11:56] VITALS: BP 151/83; PULSE 65; RESP 18; TEMP 37.1; O2SAT 98; BMI 56.3
[2021-10-13 12:22] LABS: IDNOW Serial# 08D9AD1C; Strep A Nucleic Acid Negative (Negative)
[2021-10-13 12:35] LABS: COVID-19 Test Positive (Negative); IDNOW Serial# 16C4AD1C
--- NOTE | 2021-10-13 12:58 | ED.URI ---
HPI - URI/Sore Throat General Chief Complaint: Upper Respiratory Symptoms Stated Complaint: Sore throat Time Seen by Provider: 10/13/21 12:58 Source: patient Mode of arrival: ambulatory Limitations: no limitations History of Present Illness HPI Narrative: Patient presents emergency department for evaluation of sore throat chills and lightheadedness since last night. Additionally has a productive cough. Denies any known sick contacts. Has been vaccinated for COVID-19 x 3 with last dosage of May 2021. Denies chest pain, palpitations, shortness of breath, difficulty breathing, nausea, vomiting, abdominal pain, headache, vision changes, neck pain or neck stiffness. Related Data Home Medications Medication Instructions Recorded Confirmed atorvastatin 40 mg tablet 40 mg PO BEDTIME 02/04/20 07/24/21 insulin aspart U-100 100 unit/mL 20 unit subcut TID 02/04/20 07/24/21 subcutaneous solution insulin glargine 100 unit/mL 45 unit subcut BEDTIME 02/04/20 07/24/21 subcutaneous solution metformin 1,000 mg tablet 1,000 mg PO BID 02/04/20 07/24/21 fluoxetine 20 mg capsule 1 cap PO QAM 07/12/20 07/24/21 blood sugar diagnostic (OneTouch 07/02/21 07/24/21 Verio test strips) blood-glucose meter (OneTouch 07/02/21 07/24/21 Verio Flex Meter) clonazepam 1 mg tablet 1 mg PO BEDTIME 07/02/21 07/24/21 losartan 100 1 tab PO DAILY 07/02/21 07/24/21 mg-hydrochlorothiazide 25 mg tablet trazodone 100 mg tablet 200 mg PO BEDTIME PRN 07/02/21 07/24/21 Previous Rx's Medication Instructions Recorded albuterol sulfate 90 mcg/actuation 2 puff inhalation RQ4H PRN 07/17/20 aerosol inhaler (Ventolin HFA) Shortness Of Breath #6.7 grams guaifenesin 100 mg/5 mL oral liquid 200 mg (10 mL) PO Q4H PRN Cough 07/17/20 #473 mL metoprolol succinate 100 mg 100 mg PO TID #90 tabs 12/01/20 tablet,extended release 24 hr apixaban 5 mg tablet (Eliquis) 5 mg PO BID 90 days #180 tabs 01/28/21 blood sugar diagnostic (OneTouch #100 ea 07/02/21 Verio test strips) amiodarone 200 mg tablet 200 mg PO QAM 90 days #90 tabs 09/22/21 Allergies Allergy/AdvReac Type Severity Reaction Status Date / Time No Known Allergies Allergy Mild NOT Verified 10/13/21 11:56 APPLICABLE Review of Systems Review of Systems: Constitutional: No fever. Positive chills. No weakness. No fatigue. ENT/ Mouth: No Ear Pain, No Nasal Congestion, positive sore throat, No Rhinorrhea, No Swallowing Difficulty Skin: No rash or itching. Cardiovascular: No chest pain. No palpitations. Respiratory: No shortness of breath. Positive cough. Positive sputum production. Gastrointestinal: No nausea. No vomiting. No diarrhea. No abdominal pain. Genitourinary: No burning micturition. No urinary frequency. Neurologic: No headache. No dizziness. No syncope. No numbness or tingling in the extremities. Musculoskeletal: No muscle pain. No back pain. No joint pain or stiffness. Yes all other systems are reviewed and are negative [facility] Past Medical History Attestation statement: The following information was validated with the patient. Source: old records reviewed Medical History Diabetes mellitus History of cardiomyopathy History of congestive heart failure HTN (hypertension) Hx of cardiac pacemaker ICD (implantable cardioverter-defibrillator) discharge ICD (implantable cardioverter-defibrillator) in place Morbid obesity RACHELLE (obstructive sleep apnea) Paroxysmal atrial fibrillation Surgical History Hx of cardiac cath Family History Family History Father CVD (cardiovascular disease) Mother Diabetes Heart disease Social History Social History Household Members: Spouse and Family Housing: Apartment Alcohol intake: current Alcohol intake frequency: former alcohol drinker Patient Tobacco Use Status: Never used Tobacco Advance Directives: No Advance Directives Information Provided: No service: No Current occupational status: disabled Current occupation: right handed Physical Exam Vital Signs: Vital Signs: Last Vital Signs Temp 98.8 F 10/13/21 11:56 Pulse 65 10/13/21 11:56 Resp 18 10/13/21 11:56 BP 151/83 H 10/13/21 11:56 Pulse Ox 98 10/13/21 11:56 O2 Del Method 10/13/21 11:56 BMI result Body Mass Index 56.3 Vital signs have been reviewed as normal and appeared to be correct. Blood pressure normal.? Heart rate normal.? Respiration rate normal. Temperature normal.? Oxygen saturation normal. Appearance: Alert.?Oriented to person, place and time. No acute distress.?Normal affect. Eyes: Pupils equal, round and reactive to light.? ENT: TM normal bilaterally. Pharynx erythematous, no exudate, no tonsillar hypertrophy? Neck: Normal inspection.? Neck supple.??No cervical adenopathy CVS: Heart sounds normal. Normal heart rate and rhythm.? Pulses normal.?? Respiratory: No respiratory distress.? Lung sounds clear to auscultation bilaterally?? Abdomen: Soft and non-tender. Normoactive bowel sounds. Skin: Skin warm and dry.? Normal skin color.? ? Extremities: No lower extremity edema.? Neuro: Moves all extremities spontaneously. Sensation intact bilaterally. No motor deficits. Ambulates with normal steady gait. Course Course Course Narrative: Patient is a 55-year-old male with past medical history of hypertension, diabetes, obesity, obstructive sleep apnea, ICD placement, atrial fibrillation, presenting for evaluation of sore throat. COVID-19 testing positive. Group a strep testing negative. At this time history and physical exam not consistent with ACS/PE/pneumonia, or peritonsillar abscess. Well-appearing, nontoxic, afebrile, no tachycardia or tachypnea/hypoxia. Speaking clear full sentences, ambulatory with steady gait. Discussed conservative treatment including rest, hydration, Tylenol/ibuprofen as needed for fever and body aches, Chloraseptic throat spray or throat lozenges for sore throat. Reviewed indications for paxlovid and monoclonal antibodies as he would be a candidate, patient however declines treatment. Advised isolation for 5 days, after 5 days should be asymptomatic and without fever for 24 hours before returning to regular activities. Advised to follow-up with primary care provider within 5 days, discussed reasons to return back to the emergency department. All questions were answered. Patient discharged home in stable condition. MDM - URI/Sore Throat Medical Records Attestation: I reviewed the patient's medical records. Lab Data Attestation: I reviewed the patient's lab results. Labs: Lab Results 10/13/21 10/13/21 Range/Units 12:03 12:03 COVID-19 (TONJA) Positive A (Negative) COVID-19 Clin Com See Note S. pyogenes GrpA IRWIN Negative (Negative) Discharge Plan Discharge Clinical Impression: COVID-19 Patient Disposition: Home, Self-Care Instructions: COVID-19 (Coronavirus Disease 2019) (ED) Additional Instructions: Be sure to rest, stay well hydrated drinking plenty of fluids, eat small frequent meals. Tylenol/ibuprofen can be used as needed for fever/pain. [id number] cold medications may be helpful as well for symptoms such are chloroseptic throat spray or throat lozenges. Saline nasal spray, humidifier may be helpful for nasal congestion. You may return to the emergency department with any new or worsening symptoms or concerns. Follow-up with your primary care provider within 5 days. Should isolate for 5 days until symptoms have resolved and have been without a fever for 24 hours without the use of Tylenol or ibuprofen. Return back to the emergency department for any new or worsening symptoms or concerns such as fevers not responding to Medicine, worsening cough, shortness of breath, difficulty breathing, chest pain, palpitations, dizziness, lightheadedness. Prescriptions: No Action metoprolol succinate 100 mg tablet extended release 24 hr 100 mg PO TID Qty: 90 3RF Eliquis 5 mg tablet 5 mg PO BID 90 Days Qty: 180 3RF amiodarone 200 mg tablet 200 mg PO QAM 90 Days Qty: 90 1RF fluoxetine 20 mg capsule 1 cap PO QAM guaifenesin 100 mg/5 mL Liquid 200 mg PO Q4H PRN (Reason: Cough) Qty: 473 0RF albuterol sulfate [Ventolin HFA] 90 mcg/actuation Hfa Aerosol Inhaler 2 puff inhalation RQ4H PRN (Reason: Shortness Of Breath) Qty: 6.7 0RF metformin 1,000 mg tablet 1,000 mg PO BID atorvastatin 40 mg tablet 40 mg PO BEDTIME insulin glargine 100 unit/mL solution 45 unit subcut BEDTIME insulin aspart U-100 100 unit/mL solution 20 unit subcut TID losartan-hydrochlorothiazide 100-25 mg tablet 1 tab PO DAILY trazodone 100 mg tablet 200 mg PO BEDTIME PRN clonazepam 1 mg tablet 1 mg PO BEDTIME (DME) blood-glucose meter [OneTouch Verio Flex meter] Misc See Rx Instructions .Route Rx Instructions: As directed test blood sugar 3 times a day (DME) OneTouch Verio test strips Strip See Rx Instructions .Route Rx Instructions: As directed test blood sugar 3 times a day (DME) OneTouch Verio test strips Strip See Rx Instructions .Route Qty: 100 6RF Rx Instructions: As directed Interventions: ED Discharge Assessment Last Done: 10/13/21 13:34 Discharge Date/Time: 10/13/21 13:35
== END 2021-10-13 13:35 | disposition home or self-care (01) ==
PROVIDERS: Emergency Provider Emergency Medicine; PCP Internal Medicine
DX: U07.1 COVID-19 (principal); J02.9 Acute pharyngitis, unspecified; E11.9 Type 2 diabetes mellitus without complications; I10 Essential (primary) hypertension; I48.0 Paroxysmal atrial fibrillation; E66.01 Morbid (severe) obesity due to excess calories; Z68.43 Body mass index [BMI] 50.0-59.9, adult; Z95.0 Presence of cardiac pacemaker; Z79.4 Long term (current) use of insulin; Z79.899 Other long term (current) drug therapy; Z79.01 Long term (current) use of anticoagulants
CPT/HCPCS: 87635; 87651; 99282; 99283

== ENCOUNTER 2021-12-21 08:36 | Outpatient (REF) | payer OTHER, SELFPAY ==
[2021-12-21 09:40] LABS: Alanine Aminotransferase 22 U/L (0-40); Alkaline Phosphatase 74 U/L (39-117); Anion Gap 17 (12-20); Aspartate Amino Transferase 17 U/L (5-37); Bilirubin Total 0.6 mg/dL (0.0-1.0); Blood Urea Nitrogen 17 mg/dL (9-16); Calcium 9.2 mg/dL (8.4-10.2); Carbon Dioxide 23 mmol/L (22-29); Chloride 106 mmol/L (96-108); Estimated Glomerular Filt Rate > 60; Glucose Random 311 mg/dL (60-115); Potassium 3.7 mmol/L (3.3-5.1); Sodium 142 mmol/L (135-145); Total Protein 6.3 g/dL (6.5-8.0)
[2021-12-21 10:02] LABS: TSH reflex Free T4 0.94 uIU/mL (0.32-4.0)
== END 2021-12-21 08:37 | disposition home or self-care (01) ==
LOC: HO.LAB 08:36
PROVIDERS: PCP Internal Medicine; Visit Provider Internal Medicine Cardiovascular Disease
DX: I48.0 Paroxysmal atrial fibrillation (principal)
CPT/HCPCS: 36415; 80053; 84443

== ENCOUNTER 2022-01-05 11:27 | Outpatient (REF) | payer OTHER, SELFPAY ==
[2022-01-05 12:33] LABS: Estimated Average Glucose 255 mg/dL; Hemoglobin A1c % 10.5 %
[2022-01-05 12:40] LABS: Creatinine Urine 49.26 mg/dL; Microalbumin Urine < 5.0 mg/L
[2022-01-05 12:48] LABS: Alanine Aminotransferase 20 U/L (0-40); Albumin Level 3.9 g/dL (3.5-5.0); Alkaline Phosphatase 86 U/L (39-117); Anion Gap 15 (12-20); Aspartate Amino Transferase 15 U/L (5-37); Bilirubin Total 0.6 mg/dL (0.0-1.0); Blood Urea Nitrogen 16 mg/dL (9-16); Calcium 8.8 mg/dL (8.4-10.2); Carbon Dioxide 23 mmol/L (22-29); Chloride 106 mmol/L (96-108); Cholesterol 121 mg/dL; Estimated Glomerular Filt Rate > 60; Glucose Random 311 mg/dL (60-115); HDL Cholesterol 47 mg/dL; LDL Cholesterol Calculated 55 mg/dl; Potassium 3.9 mmol/L (3.3-5.1); Sodium 140 mmol/L (135-145); Total Protein 6.3 g/dL (6.5-8.0); Triglycerides 96 mg/dL
[2022-01-05 12:54] LABS: Prostate Specific Antigen Scr 0.42 ng/mL (<0.05-4.0); Thyroid Stimulating Hormone 0.84 uIU/mL (0.32-4.0)
== END 2022-01-05 11:28 | disposition home or self-care (01) ==
LOC: HO.LAB 11:27
PROVIDERS: PCP Internal Medicine; Visit Provider Internal Medicine
DX: Z13.89 Encounter for screening for other disorder (principal)
CPT/HCPCS: 36415; 80053; 80061; 82043; 83036; 84153; 84443

== ENCOUNTER → 2022-02-23 12:49 | Outpatient (BNVA) | payer OTHER, SELFPAY | PROVIDERS: PCP Internal Medicine; Referring Provider Internal Medicine; Visit Provider Internal Medicine Cardiovascular Disease | DX: I48.19 Other persistent atrial fibrillation (principal); Z86.79 Personal history of other diseases of the circulatory system; Z79.01 Long term (current) use of anticoagulants; Z45.02 Encounter for adjustment and management of automatic implantable cardiac defibrillator | CPT/HCPCS: 93005; 99212 ==

== ENCOUNTER → 2022-04-14 11:07 | Outpatient (BNVA) | payer OTHER, SELFPAY | PROVIDERS: PCP Internal Medicine; Visit Provider Internal Medicine Endocrinology, Diabetes & Metabolism | DX: E11.9 Type 2 diabetes mellitus without complications (principal) | CPT/HCPCS: 82947; 83036; 99212 ==

== ENCOUNTER 2022-05-11 12:25 | Outpatient (REF) | payer OTHER, SELFPAY ==
[2022-05-11 13:30] LABS: Estimated Average Glucose 217 mg/dL; Hemoglobin A1c % 9.2 %
[2022-05-11 14:04] LABS: Alanine Aminotransferase 19 U/L (0-40); Alkaline Phosphatase 72 U/L (39-117); Anion Gap 11 (12-20); Aspartate Amino Transferase 15 U/L (5-37); Bilirubin Total 0.6 mg/dL (0.0-1.0); Blood Urea Nitrogen 14 mg/dL (9-16); Calcium 9.3 mg/dL (8.4-10.2); Carbon Dioxide 22 mmol/L (22-29); Chloride 109 mmol/L (96-108); Estimated Glomerular Filt Rate > 60; Glucose Random 169 mg/dL (60-115); Potassium 4.2 mmol/L (3.3-5.1); Sodium 138 mmol/L (135-145); Total Protein 6.4 g/dL (6.5-8.0)
== END 2022-05-11 12:26 | disposition home or self-care (01) ==
LOC: HO.LAB 12:25
PROVIDERS: PCP Internal Medicine; Visit Provider Internal Medicine
DX: Z00.01 Encounter for general adult medical examination with abnormal findings (principal); E78.00 Pure hypercholesterolemia, unspecified; I10 Essential (primary) hypertension; E11.65 Type 2 diabetes mellitus with hyperglycemia
CPT/HCPCS: 36415; 80053; 83036

== ENCOUNTER → 2022-05-14 11:37 | Outpatient (REF) | payer OTHER, SELFPAY ==
--- NOTE | 2022-05-14 11:41 | HM_ITS ---
* Total monitoring time approximately 2 days. * Underlying rhythm is atrial fibrillation. * Average ventricular rate 100/Min. Range 69-144/Min. * About 24% of the time, rate > 100/Min. * Frequent PVCs with a burden of 1.2%. Few couplets, bigeminy. Aberrant beats not excluded. * No patient markers or diary. * Overall, atrial fibrillation with less than optimal rate control. MTDD
== END ==
LOC: HO.CARD 11:37
PROVIDERS: PCP Internal Medicine; Visit Provider Internal Medicine Cardiovascular Disease
DX: I48.19 Other persistent atrial fibrillation (principal)
CPT/HCPCS: 93225

== ENCOUNTER → 2022-08-02 11:06 | Outpatient (REF) | payer OTHER, SELFPAY ==
--- NOTE | 2022-08-02 11:11 | CA_ITS ---
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 The calculated ejection fraction is 50% by biplane method. - No obvious valvular pathology seen on this study. Findings Procedure Information Contrast agent, definity, is being given per protocol without apparent complications. Left Ventricle Normal left ventricular cavity size. There is moderately increased left ventricular wall thickness. The left ventricular systolic function is mildly decreased. The calculated ejection fraction is 50% by biplane method. There is no evidence of regional wall motion abnormalities. Diastolic function is indeterminate on the basis of available data. Right Ventricle Moderately increased right ventricular cavity size. There is normal right ventricular systolic function. There is an ICD wire seen in the right ventricle. Atria Both atria are normal in size. Aortic Valve There is a normal trileaflet aortic valve. There is mild calcification of the aortic valve. There is no aortic valve stenosis. There is no aortic valve regurgitation. Mitral Valve The mitral valve appears normal. There is no mitral valve regurgitation. There is no mitral valve stenosis. Pulmonic Valve The pulmonic valve is likely normal. Tricuspid Valve There is mild tricuspid valve regurgitation. There is no evidence of pulmonary hypertension. Great Vessels The asc aorta is normal in size. Venous The inferior vena cava is normal in size and collapses greater than 50% with inspiration. Pericardium/Pleural There is no evidence of pericardial effusion. Prior Study Comparison Changes noted compared to prior study dated: 04/27/2021. LVEF slightly lower than prior study. Recommendations, Care & Conclusions No obvious valvular pathology seen on this study. Measurements 2D Linear Measurements IVSd: 1.41 0.6-0.9/0.6-1.0 cm LVIDd: 4.67 3.9-5.3/4.2-5.9 cm LVIDd Index: 1.95 2.4-3.2/2.2-3.1 cm/m2 LVIDs: 3.26 2.0-3.6 cm LVPWd: 1.35 0.7-1.1 cm LA Diam: 3.70 2.7-3.8/3.0-4.0 cm LAIDs Index: 1.54 1.5-2.3 cm/m2 LV Mass: 320.66 67-162/88-224 g LV Mass Index: 133.61 43-95/49-115 g/m2 LVOT Diam: 2.30 3.0+(-)1.3 cm 2D Systolic Function EF 4C: 48.10 >55% EF 2C: 51.00 >55% EF BiP: 50.40 >55% Mitral Valve MV Pk E: 0.84 MV Decel Time: 182.00 E'Lateral: 11.10 E'Medial: 6.98 E/E' Med: 12.00 E/E' Lat: 7.50 PHT: 53.00 MVA PHT: 4.15 Decel [place]: 4.65 Aortic Valve AoV Pk Joni: 1.42 AoV Mn Joni: 1.04 AoV VTI: 0.34 AoV Pk Grad: 8.00 Aov Mn Grad: 5.00 SAYDA Cont.VTI: 2.15 LVOT LVOT Pk Joni: 0.82 LVOT Mn Joni: 0.50 LVOT VTI: 0.17 LVOT Pk Grad: 3.00 LVOT Mn Grad: 1.00 LVOT Diam: 2.30 LVOT Area: 4.15 Diastolic Function MV Pk E: 0.84 E'Medial: 6.98 E/E' Med: 12.00 E' Laterial: 11.10 E/E' Lat: 7.50 Right Ventricle TAPSE (mm): 23.00 TVS' Joni: 12.40 Tricuspid Valve TR Pk Joni: 2.39 TR Pk Grad: 23.00 RA Press: 8.00 RVSP: 31.00 Great Vessels Aorta Sinus of Valsalva: 3.66 2.0-3.5 cm Ao Asc: 3.40 2.1-3.4 cm Updated in Other Vendor System with Status of Final Francisco Barry MD electronically signed on 08/03/2022 2:48:43 PM with status of Final
== END ==
LOC: HO.CARD 11:06
PROVIDERS: PCP Internal Medicine; Visit Provider Internal Medicine Cardiovascular Disease
DX: Z86.79 Personal history of other diseases of the circulatory system (principal)
CPT/HCPCS: 93306; Q9957

== ENCOUNTER 2022-08-03 12:11 | Outpatient (REF) | payer OTHER, SELFPAY ==
[2022-08-03 13:06] LABS: Estimated Average Glucose 197 mg/dL; Hemoglobin A1c % 8.5 %
[2022-08-03 13:19] LABS: Alanine Aminotransferase 16 U/L (0-40); Alkaline Phosphatase 96 U/L (39-117); Anion Gap 11 (12-20); Aspartate Amino Transferase 14 U/L (5-37); Bilirubin Total 0.5 mg/dL (0.0-1.0); Blood Urea Nitrogen 12 mg/dL (9-16); Calcium 9.9 mg/dL (8.4-10.2); Carbon Dioxide 27 mmol/L (22-29); Chloride 105 mmol/L (96-108); Estimated Glomerular Filt Rate > 60; Glucose Random 340 mg/dL (60-115); Potassium 3.9 mmol/L (3.3-5.1); Sodium 139 mmol/L (135-145); Total Protein 6.4 g/dL (6.5-8.0)
== END 2022-08-03 12:12 | disposition home or self-care (01) ==
LOC: HO.LAB 12:11
PROVIDERS: PCP Internal Medicine; Visit Provider Internal Medicine
DX: Z00.01 Encounter for general adult medical examination with abnormal findings (principal); E11.65 Type 2 diabetes mellitus with hyperglycemia; E78.00 Pure hypercholesterolemia, unspecified; I10 Essential (primary) hypertension
CPT/HCPCS: 36415; 80053; 83036

== ENCOUNTER 2022-08-25 13:29 | Outpatient (REF) | payer OTHER, SELFPAY | END 2022-08-25 13:30 | disposition home or self-care (01) | LOC: HO.LAB 13:29 | PROVIDERS: PCP Internal Medicine; Referring Provider Internal Medicine; Visit Provider Surgery | DX: L02.91 Cutaneous abscess, unspecified (principal) | CPT/HCPCS: 10060; 10061; 87070; 87077; 87186; 87205; 99202 ==

== ENCOUNTER → 2022-08-27 11:31 | Outpatient (BNVA) | payer OTHER, SELFPAY | PROVIDERS: PCP Internal Medicine; Visit Provider Surgery | DX: Z48.00 Encounter for change or removal of nonsurgical wound dressing (principal) | CPT/HCPCS: 99211 ==

== ENCOUNTER → 2022-09-01 11:36 | Outpatient (BNVA) | payer OTHER, SELFPAY | PROVIDERS: PCP Internal Medicine; Visit Provider Surgery | DX: L02.91 Cutaneous abscess, unspecified (principal) | CPT/HCPCS: 10060; 10061; 99202 ==

== ENCOUNTER → 2022-09-02 11:32 | Outpatient (BNVA) | payer OTHER, SELFPAY | PROVIDERS: PCP Internal Medicine; Visit Provider Surgery | DX: Z48.00 Encounter for change or removal of nonsurgical wound dressing (principal) | CPT/HCPCS: 99211 ==

== ENCOUNTER → 2022-09-03 10:50 | Outpatient (BNVA) | payer OTHER, SELFPAY | PROVIDERS: PCP Internal Medicine; Visit Provider Surgery | DX: Z48.01 Encounter for change or removal of surgical wound dressing (principal) | CPT/HCPCS: 99211 ==

== ENCOUNTER → 2022-09-06 10:31 | Outpatient (BNVA) | payer OTHER, SELFPAY | PROVIDERS: PCP Internal Medicine; Visit Provider Surgery | DX: Z48.00 Encounter for change or removal of nonsurgical wound dressing (principal) | CPT/HCPCS: 99211 ==

== ENCOUNTER → 2022-09-07 10:53 | Outpatient (BNVA) | payer OTHER, SELFPAY | PROVIDERS: PCP Internal Medicine; Visit Provider Surgery | DX: Z48.89 Encounter for other specified surgical aftercare (principal) | CPT/HCPCS: 99211 ==

== ENCOUNTER → 2022-09-09 13:44 | Outpatient (BNVA) | payer OTHER, SELFPAY | PROVIDERS: PCP Internal Medicine; Visit Provider Surgery | DX: Z48.817 Encounter for surgical aftercare following surgery on the skin and subcutaneous tissue (principal); Z87.2 Personal history of diseases of the skin and subcutaneous tissue | CPT/HCPCS: 99212 ==

== ENCOUNTER → 2022-10-18 23:59 | Outpatient (BNV) | payer OTHER, SELFPAY ==
--- NOTE | 2022-10-20 14:36 | MHC.OFFVIS ---
Intake Intake Visit Reasons: Remote HF Monitoring- [facility] Allergies No Known Allergies Allergy (Mild, Verified 09/09/22 14:01) NOT APPLICABLE PFSH Medical History (Updated 09/09/22 @ 14:10 by Gabino Veliz MD) Diabetes mellitus History of cardiomyopathy History of congestive heart failure HTN (hypertension) Hx of cardiac pacemaker ICD (implantable cardioverter-defibrillator) discharge ICD (implantable cardioverter-defibrillator) in place Morbid obesity RACHELLE (obstructive sleep apnea) Paroxysmal atrial fibrillation Sebaceous cyst Surgical History (Updated 09/01/22 @ 12:10 by Gabino Veliz MD) Hx of cardiac cath Family History Father CVD (cardiovascular disease) Mother Diabetes Heart disease Social History Household Members: Spouse and Family Housing: Apartment Alcohol intake: current Alcohol intake frequency: former alcohol drinker Patient Tobacco Use Status: Never used Tobacco service: No Current occupational status: disabled Current occupation: right handed Office Procedures Cardiac Device Check Cardiac Device Check Details: Remote heart failure report generated 10/18/2022. Heart failure parameters are stable [id number] Cardiac Device Interrogation, cardio physiologic monitor Procedure code (CPT) selection complete Coding Level of Care Code Procedure Only Diagnoses CPT Codes Cardiac Device Check - Cardiac Device 15: [id number] Cardiac Device Interrogation, cardio physiologic monitor ([id number])
== END ==
PROVIDERS: PCP Internal Medicine; Visit Provider Internal Medicine Cardiovascular Disease
DX: I48.19 Other persistent atrial fibrillation (principal); Z95.810 Presence of automatic (implantable) cardiac defibrillator
CPT/HCPCS: 93297

== ENCOUNTER 2022-11-08 09:42 | Outpatient (REF) | payer OTHER, SELFPAY ==
[2022-11-08 10:59] LABS: Alanine Aminotransferase 15 U/L (0-40); Albumin Level 3.8 g/dL (3.5-5.0); Alkaline Phosphatase 87 U/L (39-117); Anion Gap 13 (12-20); Aspartate Amino Transferase 14 U/L (5-37); Bilirubin Total 0.6 mg/dL (0.0-1.0); Blood Urea Nitrogen 18 mg/dL (9-16); Calcium 9.9 mg/dL (8.4-10.2); Carbon Dioxide 24 mmol/L (22-29); Chloride 106 mmol/L (96-108); Estimated Glomerular Filt Rate > 60; Glucose Random 235 mg/dL (60-115); Potassium 3.9 mmol/L (3.3-5.1); Sodium 139 mmol/L (135-145); Total Protein 7.1 g/dL (6.5-8.0)
[2022-11-08 11:10] LABS: Estimated Average Glucose 186 mg/dL; Hemoglobin A1c % 8.1 % (<6.0)
== END 2022-11-08 09:43 | disposition home or self-care (01) ==
LOC: HO.10HDL 09:42
PROVIDERS: Visit Provider Internal Medicine
DX: E11.65 Type 2 diabetes mellitus with hyperglycemia (principal); E78.00 Pure hypercholesterolemia, unspecified; I10 Essential (primary) hypertension
CPT/HCPCS: 36415; 80053; 83036

== ENCOUNTER 2022-11-15 09:32 | Outpatient (AMB) | payer OTHER, SELFPAY ==
--- NOTE | 2022-11-15 10:28 | AM.OFFVISNUR ---
Intake Intake Visit Reasons: Ekg Intake Note: EKG - Per Elaina Saucedo NP., recent transmission on pacer from 11/14/22 showed very rapid rate 200's and terminated on it's own. No shock was delivered. Umbrella Finisher Required: No Accompanied by: Self / Same As Patient Allergies No Known Allergies Allergy (Mild, Verified 09/09/22 14:01) NOT APPLICABLE Followed by:: Elaina Masters NP Nursing Note Pt denied feeling the rapid rate yesterday. Feels good. No complaints. Taking all meds as directed, including Digoxin 0.25mg daily and Metoprolol 200mg bid. Useing CPAP consistently. EKG completed, EKG auto-reading Afib at 69 bpm. EKG on Elaina Masters's desk for review and signature. Office Procedures EKG [id number], Complete Coding Level of Care Code Est Pt Level 1 (89743) Diagnoses CPT Codes EKG - CPT: 64257-[id number], Complete ([id number]) Time Spent (min) 20 Comment *EKG, Medication Reconciliation, Documentation, Education
== END 2022-11-15 10:36 | disposition home or self-care (01) ==
PROVIDERS: PCP Internal Medicine; Referring Provider Internal Medicine; Visit Provider Nurse Practitioner Family
DX: I48.19 Other persistent atrial fibrillation (principal)
CPT/HCPCS: 93010

== ENCOUNTER → 2022-11-15 09:32 | Outpatient (BNVA) | payer OTHER, SELFPAY | PROVIDERS: PCP Internal Medicine; Referring Provider Internal Medicine; Visit Provider Nurse Practitioner Family | DX: Z79.899 Other long term (current) drug therapy (principal) | CPT/HCPCS: 93005 ==

== ENCOUNTER → 2022-12-09 11:01 | Outpatient (REF) | payer OTHER, SELFPAY ==
--- NOTE | 2022-12-09 11:04 | HM_ITS ---
* Total monitoring time 3 days. * Underlying rhythm is atrial fibrillation with intermittent ventricular pacing. * Average ventricular rate 78/Min. Range 44 to 134/Min. * Rare ventricular ectopy. * No patient markers or events in diary. MTDD
== END ==
LOC: HO.CARD 11:01
PROVIDERS: PCP Internal Medicine; Visit Provider Nurse Practitioner Family
DX: I48.19 Other persistent atrial fibrillation (principal)
CPT/HCPCS: 93242

== ENCOUNTER → 2022-12-13 23:59 | Outpatient (BNV) | payer OTHER, SELFPAY ==
--- NOTE | 2022-12-13 15:54 | MHC.OFFVIS ---
Intake Intake Visit Reasons: Remote ICD check- [facility] Allergies No Known Allergies Allergy (Mild, Verified 09/09/22 14:01) NOT APPLICABLE PFSH Medical History (Updated 09/09/22 @ 14:10 by Gabino Veliz MD) Sebaceous cyst ICD (implantable cardioverter-defibrillator) discharge Hx of cardiac pacemaker History of congestive heart failure Diabetes mellitus History of cardiomyopathy RACHELLE (obstructive sleep apnea) HTN (hypertension) Paroxysmal atrial fibrillation Morbid obesity ICD (implantable cardioverter-defibrillator) in place Surgical History (Updated 09/01/22 @ 12:10 by Gabino Veliz MD) Hx of cardiac cath Family History Father CVD (cardiovascular disease) Mother Diabetes Heart disease Social History Household Members: Spouse and Family Housing: Apartment Alcohol intake: current Alcohol intake frequency: former alcohol drinker Patient Tobacco Use Status: Never used Tobacco service: No Current occupational status: disabled Current occupation: right handed Office Procedures Cardiac Device Check Cardiac Device Check Details: Remote ICD report generated 12/13/2022. One episode of ICD therapy delivered for high ventricular rate, patient in atrial fibrillation rapid ventricular response. This is consistent with inappropriate discharge [id number] Cardiac Interrogation, implant defibrillator w/interim Procedure code (CPT) selection complete Coding Level of Care Code Procedure Only CPT Codes Cardiac Device Check - Cardiac Device 13: [id number] Cardiac Interrogation, implant defibrillator w/interim ([id number])
== END ==
PROVIDERS: PCP Internal Medicine; Visit Provider Internal Medicine Cardiovascular Disease
DX: I48.19 Other persistent atrial fibrillation (principal); Z95.810 Presence of automatic (implantable) cardiac defibrillator
CPT/HCPCS: 93295

== ENCOUNTER → 2022-12-13 23:59 | Outpatient (BNV) | payer OTHER, SELFPAY ==
--- NOTE | 2022-12-13 15:55 | MHC.OFFVIS ---
Intake Intake Visit Reasons: REmote HF monitoring- [facility] Allergies No Known Allergies Allergy (Mild, Verified 09/09/22 14:01) NOT APPLICABLE PFSH Medical History (Updated 09/09/22 @ 14:10 by Gabino Veliz MD) Sebaceous cyst ICD (implantable cardioverter-defibrillator) discharge Hx of cardiac pacemaker History of congestive heart failure Diabetes mellitus History of cardiomyopathy RACHELLE (obstructive sleep apnea) HTN (hypertension) Paroxysmal atrial fibrillation Morbid obesity ICD (implantable cardioverter-defibrillator) in place Surgical History (Updated 09/01/22 @ 12:10 by Gabino Veliz MD) Hx of cardiac cath Family History Father CVD (cardiovascular disease) Mother Diabetes Heart disease Social History Household Members: Spouse and Family Housing: Apartment Alcohol intake: current Alcohol intake frequency: former alcohol drinker Patient Tobacco Use Status: Never used Tobacco service: No Current occupational status: disabled Current occupation: right handed Office Procedures Cardiac Device Check Cardiac Device Check Details: Remote heart failure report generated 12/13/2022. Heart failure parameters are stable [id number] Cardiac Device Interrogation, cardio physiologic monitor Procedure code (CPT) selection complete Coding Level of Care Code Procedure Only CPT Codes Cardiac Device Check - Cardiac Device 15: [id number] Cardiac Device Interrogation, cardio physiologic monitor ([id number])
== END ==
PROVIDERS: PCP Internal Medicine; Visit Provider Internal Medicine Cardiovascular Disease
DX: I48.19 Other persistent atrial fibrillation (principal); Z95.810 Presence of automatic (implantable) cardiac defibrillator
CPT/HCPCS: 93297

== ENCOUNTER 2022-12-16 13:32 | Outpatient (AMB) | payer OTHER, SELFPAY ==
[2022-12-16 14:47] VITALS: BP 110/60; PULSE 92; BMI 39.9
--- NOTE | 2022-12-16 14:47 | A.OFFVIS_ITS ---
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 Required: Yes Golf Club Weighter Language: Patient Access Manager Name: evan tucker [id number] Relay Repairer: Relay Repairer Present Accompanied by: Spouse Allergies No Known Allergies Allergy (Mild, Verified 12/16/22 14:54) NOT APPLICABLE Medication List - Last Reconciled 12/16/22 by RADHA Varela albuterol sulfate 90 mcg/actuation (Ventolin HFA) 2 puffs inhalation RQ4H PRN apixaban (Eliquis) 5 mg PO BID atorvastatin 40 mg PO BEDTIME blood sugar diagnostic (OneTouch Verio test strips) As directed test blood sugar 3 times a day blood sugar diagnostic (FreeStyle Lite Strips) As directed 4 times a day blood sugar diagnostic (OneTouch Verio test strips) TEST BLOOD SUGAR 4 - 5 TIMES DAILY DIRECTED blood-glucose meter (OneTouch Verio Flex Meter) As directed test blood sugar 3 times a day blood-glucose meter (FreeStyle [place] Lite kit) As directed checks 4x/day clonazepam 1 mg PO BEDTIME digoxin 250 mcg PO DAILY dulaglutide (Trulicity) mg subcut dulaglutide (Trulicity) mg subcut QWEEK fluoxetine 1 cap PO QAM insulin aspart U-100 20 units subcut TID insulin glargine 45 units subcut BEDTIME insulin syringe-needle U-100 (BD Insulin Syringe Ultra-Fine) As directed 4 times a day lancets (FreeStyle Lancets) As directed losartan-hydrochlorothiazide 100-25 mg 1 tab PO DAILY metformin 1,000 mg PO BID metoprolol succinate ER 200 mg PO BID oxycodone 5 mg PO Q8H PRN trazodone 200 mg PO BEDTIME PRN HPI f/u discuss ICD Upgrade/Ablation HPI Details Sridhar is a 57-year-old male with past medical history morbid obesity, hypertension, hyperlipidemia, diabetes, obstructive sleep apnea with CPAP use, nonischemic cardiomyopathy, ICD in place, persistent atrial fibrillation who presents for follow-up after recent episodes of AFib RVR and ICD therapies including shock. Today he reports he has been experiencing some low back pain, otherwise his health is unchanged. He tells me he has been taking all his meds as directed. He does not notice heart palpitations. He tries to walk routinely but does not do activities better very exertional. Mild shortness of breath if he does walk distances. No PND, orthopnea or edema. No presyncope, syncope, falls. Significant other is present. No bleeding issues reported. 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 [facility] Medical History (Updated 12/16/22 @ 17:06 by MINERVA VarelaC) ICD (implantable cardioverter-defibrillator) discharge Sebaceous cyst Hx of cardiac pacemaker History of congestive heart failure Diabetes mellitus History of cardiomyopathy RACHELLE (obstructive sleep apnea) HTN (hypertension) Paroxysmal atrial fibrillation Morbid obesity ICD (implantable cardioverter-defibrillator) in place Surgical History Hx of cardiac cath Family History Father CVD (cardiovascular disease) Mother Diabetes Heart disease Social History Household Members: Spouse and Family Housing: Apartment Alcohol intake: current Alcohol intake frequency: former alcohol drinker Patient Tobacco Use Status: Never used Tobacco service: No Current occupational status: disabled Current occupation: right handed Review of Systems Const All systems reviewed & are unremarkable except as noted in HPI and below ENT Denies dizziness Card Denies chest pain, Denies chest pain at rest, Denies chest pain with activity, Denies rapid heart rate, Denies pedal edema, Denies edema, Denies leg edema, Denies lightheadedness, Denies palpitations, Denies dyspnea, Reports dyspnea on exertion and Denies orthopnea Resp Denies cough, Denies dyspnea and Reports dyspnea on exertion GI Denies hematochezia and Denies change in stool character Musc Denies abnormal gait, Denies limited range of motion, Denies muscle cramps, Denies muscle weakness, Denies numbness, Denies radiating pain into limb, Denies stiffness and Denies tingling Neuro Denies abnormal gait, Denies dizziness, Denies numbness and Denies tingling Endo Denies palpitations Physical Exam Vital Signs: Last Vital Signs Pulse 92 12/16/22 14:47 BP 110/60 12/16/22 14:47 BMI result Body Mass Index 39.9 Const Other: Morbidly obese General: cooperative, comfortable and no acute distress Orientation/consciousness: patient oriented x3 Neck Neck: Yes normal visual inspection Resp Effort & Inspection: normal respiratory effort Auscultation: clear to auscultation bilaterally, no crackles, no rales, no rhonchi and no wheezes Cardio Jugular venous distension: no JVD Rate: regular rate Rhythm: abnormal rhythm Heart sounds: S1 normal heart sound present, S2 normal heart sound present, no gallops, no murmurs and no rubs Neuro General: patient oriented x3 Extrem General: Yes normal to inspection Psych Appearance: grossly normal Mental Status: mental status grossly normal Speech and movement: Normal speech and movement present Assessment & Plan Assessment & Plan (1) Persistent atrial fibrillation: Code(s): I48.19 - Other persistent atrial fibrillation Plan: History of paroxysmal atrial fibrillation. More recently he has been in persistent atrial fibrillation and has failed rhythm control in the past. He was seen by EP in the past and not considered to be a good candidate for atrial fibrillation ablation due to his weight. He is on high-dose metoprolol and digoxin to control his heart rate. Recently his ICD remote monitoring has shown episodes of AFib with rates over to 100, reaching the VT VF zone. He has received ATP on a few occasions and then received an inappropriate ICD shock. This has been reviewed with Dr. Yanez his primary billing rep. Patient has been referred back to EP for re-evaluation. He may require AV node ablation, LV lead and Bi V pacing. Atrial fibrillation ablation may also be considered on him. At this visit I reviewed all of this with him and he seems to understand what I am saying. At this time he will continue his current meds without change. He may continue light physical activity. If he has an ICD shock he is to sit/lay down and rest to lower his heart rate. We will be able to see this on his remote monitoring. Cardiology follow-up in 3 months to follow-up on plan of care. (2) ICD (implantable cardioverter-defibrillator) in place: Comment: implanted in September 2015 for primary prevention. [facility] Code(s): Z95.810 - Presence of automatic (implantable) cardiac defibrillator Plan: [facility] [place] single lead ICD in place, implanted in 2016 for primary prevention. Followed remotely and device is functioning normally. Recent ICD discharge as above. 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 Normalized LV ejection f raction after treatment of sleep apnea as well as hypertension and neurohormonal modulation Code(s): Z86.79 - Personal history of other diseases of the circulatory system Plan: History of nonischemic cardiomyopathy. EF as low as 25% August 2015. With medical management and treatment of his sleep apnea his EF has normalized. Last echocardiogram done 08/02/2022 shows EF 50%, no valve abnormalities. Echo prior to that 05/12/21 showed EF 56%. On examination today he does not to appear to have decompensated heart failure. He is on hydrochlorothiazide but no other diuretic. Signs and symptoms of heart failure reviewed with him. Continue losartan, metoprolol XL for neurohormonal modulation. (5) HTN (hypertension): Code(s): I10 - Essential (primary) hypertension Qualifiers: Hypertension type: primary hypertension Qualified Code(s): I10 - Essential (primary) hypertension Plan: Well controlled at present time. No medication changes made. (6) RACHELLE (obstructive sleep apnea): Code(s): G47.33 - Obstructive sleep apnea (adult) (pediatric) Plan: He reports compliance with his CPAP mask (7) Morbid obesity: Code(s): E66.01 - Morbid (severe) obesity due to excess calories Plan: His lost 10 lb since his last visit in August Coding Level of Care Code Est Pt Level 4 (62956) Diagnoses Persistent atrial fibrillation I48.19 ICD (implantable cardioverter-defibrillator) in place Z95.810 ICD (implantable cardioverter-defibrillator) discharge Z45.02 History of cardiomyopathy Z86.79 Primary hypertension I10 Hypertension type: primary hypertension RACHELLE (obstructive sleep apnea) G47.33 Morbid obesity E66.01 Time Spent (min) 30
== END 2022-12-16 15:32 | disposition home or self-care (01) ==
PROVIDERS: PCP Internal Medicine; Visit Provider Nurse Practitioner Family
DX: I48.19 Other persistent atrial fibrillation (principal); Z95.810 Presence of automatic (implantable) cardiac defibrillator; Z45.02 Encounter for adjustment and management of automatic implantable cardiac defibrillator; Z86.79 Personal history of other diseases of the circulatory system; I10 Essential (primary) hypertension; G47.33 Obstructive sleep apnea (adult) (pediatric); E66.01 Morbid (severe) obesity due to excess calories
CPT/HCPCS: 99214

== ENCOUNTER → 2022-12-16 13:32 | Outpatient (BNVA) | payer OTHER, SELFPAY | PROVIDERS: PCP Internal Medicine; Visit Provider Nurse Practitioner Family | DX: I48.19 Other persistent atrial fibrillation (principal); I10 Essential (primary) hypertension; G47.33 Obstructive sleep apnea (adult) (pediatric); E66.01 Morbid (severe) obesity due to excess calories; Z68.39 Body mass index [BMI] 39.0-39.9, adult; Z86.79 Personal history of other diseases of the circulatory system; Z95.810 Presence of automatic (implantable) cardiac defibrillator; Z79.899 Other long term (current) drug therapy | CPT/HCPCS: 99212 ==

== ENCOUNTER → 2023-01-24 23:59 | Outpatient (BNV) | payer OTHER, SELFPAY ==
--- NOTE | 2023-01-24 12:29 | MHC.OFFVIS ---
Intake Intake Visit Reasons: Remote HF Monitoring- [facility] Allergies No Known Allergies Allergy (Mild, Verified 12/16/22 14:54) NOT APPLICABLE PFSH Medical History (Updated 12/16/22 @ 17:06 by Elaina Masters NP-C) ICD (implantable cardioverter-defibrillator) discharge Sebaceous cyst Hx of cardiac pacemaker History of congestive heart failure Diabetes mellitus History of cardiomyopathy RACHELLE (obstructive sleep apnea) HTN (hypertension) Paroxysmal atrial fibrillation Morbid obesity ICD (implantable cardioverter-defibrillator) in place Surgical History Hx of cardiac cath Family History Father CVD (cardiovascular disease) Mother Diabetes Heart disease Social History Household Members: Spouse and Family Housing: Apartment Alcohol intake: current Alcohol intake frequency: former alcohol drinker Patient Tobacco Use Status: Never used Tobacco service: No Current occupational status: disabled Current occupation: right handed Office Procedures Cardiac Device Check Cardiac Device Check Details: Remote heart failure report generated 01/24/2023. Heart failure parameters are stable [id number] Cardiac Device Interrogation, cardio physiologic monitor Procedure code (CPT) selection complete Coding Level of Care Code Procedure Only CPT Codes Cardiac Device Check - Cardiac Device 15: [id number] Cardiac Device Interrogation, cardio physiologic monitor ([id number])
== END ==
PROVIDERS: PCP Internal Medicine; Visit Provider Internal Medicine Cardiovascular Disease
DX: I48.19 Other persistent atrial fibrillation (principal); Z95.810 Presence of automatic (implantable) cardiac defibrillator
CPT/HCPCS: 93297

== ENCOUNTER 2023-02-07 11:47 | Outpatient (REF) | payer OTHER, SELFPAY ==
[2023-02-07 12:43] LABS: Estimated Average Glucose 186 mg/dL; Hemoglobin A1c % 8.1 % (<6.0)
[2023-02-07 13:18] LABS: Creatinine Urine 78.42 mg/dL; Microalbum/Creatinine Ratio Ur 7.6 ug/mg cr (<30)
[2023-02-07 13:20] LABS: Prostate Specific Antigen Scr 0.52 ng/mL (<0.05-4.0)
[2023-02-07 16:59] LABS: Alanine Aminotransferase 11 U/L (0-40); Alkaline Phosphatase 87 U/L (39-117); Anion Gap 10 (12-20); Aspartate Amino Transferase 13 U/L (5-37); Bilirubin Total 0.7 mg/dL (0.0-1.0); Blood Urea Nitrogen 9 mg/dL (9-16); Calcium 9.4 mg/dL (8.4-10.2); Carbon Dioxide 27 mmol/L (22-29); Chloride 106 mmol/L (96-108); Cholesterol 100 mg/dL (<200); Estimated Glomerular Filt Rate > 60; Glucose Random 121 mg/dL (60-115); HDL Cholesterol 36 mg/dL (>40); LDL Cholesterol Calculated 53 mg/dL (<100); Potassium 3.7 mmol/L (3.3-5.1); Sodium 139 mmol/L (135-145); Triglycerides 58 mg/dL (<150)
[2023-02-07 17:13] LABS: Thyroid Stimulating Hormone 0.74 uIU/mL (0.32-4.0)
== END 2023-02-07 11:48 | disposition home or self-care (01) ==
LOC: HO.LAB 11:47
PROVIDERS: PCP Internal Medicine; Visit Provider Internal Medicine
DX: E11.65 Type 2 diabetes mellitus with hyperglycemia (principal); E78.00 Pure hypercholesterolemia, unspecified; G47.33 Obstructive sleep apnea (adult) (pediatric); I25.5 Ischemic cardiomyopathy; N40.0 Benign prostatic hyperplasia without lower urinary tract symptoms; Z12.5 Encounter for screening for malignant neoplasm of prostate
CPT/HCPCS: 36415; 80053; 80061; 82043; 82570; 83036; 84153; 84443

== ENCOUNTER 2023-03-08 12:54 | Outpatient (REF) | payer OTHER, SELFPAY ==
[2023-03-08 15:16] LABS: Anion Gap 14 (12-20); Blood Urea Nitrogen 16 mg/dL (9-16); Calcium 9.7 mg/dL (8.4-10.2); Carbon Dioxide 23 mmol/L (22-29); Chloride 105 mmol/L (96-108); Estimated Glomerular Filt Rate > 60; Glucose Random 163 mg/dL (60-115); Potassium 3.6 mmol/L (3.3-5.1); Sodium 138 mmol/L (135-145)
== END 2023-03-08 12:55 | disposition home or self-care (01) ==
LOC: HO.LAB 12:54
PROVIDERS: PCP Internal Medicine; Visit Provider Internal Medicine Cardiovascular Disease
DX: I48.19 Other persistent atrial fibrillation (principal); Z95.810 Presence of automatic (implantable) cardiac defibrillator; Z86.79 Personal history of other diseases of the circulatory system; Z79.899 Other long term (current) drug therapy
CPT/HCPCS: 36415; 80048; 80162; 99212

== ENCOUNTER 2023-03-08 12:54 | Outpatient (AMB) | payer OTHER, SELFPAY ==
--- NOTE | 2023-03-08 13:09 | MHC.OFFVIS ---
Intake Vital Signs 03/08/23 13:09 03/08/23 13:18 Height 5 ft 11 in 5 ft 11 in Weight 125 kg BMI 38.4 Blood Pressure Location Lt brachial Position Sitting Intake Visit Reasons: follow up 6 month Intake Note: 6 mnth f/up pt its feeling fine. Barratte Operator Required: Yes Barratte Operator Name: /cyracom Accompanied by: Spouse Allergies No Known Allergies Allergy (Mild, Verified 12/16/22 14:54) NOT APPLICABLE [facility] Medical History (Updated 12/16/22 @ 17:06 by Elaina Masters, HOOD FITTER-C) ICD (implantable cardioverter-defibrillator) discharge Sebaceous cyst Hx of cardiac pacemaker History of congestive heart failure Diabetes mellitus History of cardiomyopathy RACHELLE (obstructive sleep apnea) HTN (hypertension) Paroxysmal atrial fibrillation Morbid obesity ICD (implantable cardioverter-defibrillator) in place Surgical History Hx of cardiac cath Family History Father CVD (cardiovascular disease) Mother Diabetes Heart disease Social History Household Members: Spouse and Family Housing: Apartment Alcohol intake: current Alcohol intake frequency: former alcohol drinker Patient Tobacco Use Status: Never used Tobacco service: No Current occupational status: disabled Current occupation: right handed Review of Systems Const Denies chills, Denies fatigue, Denies fever(s), Denies frequent falls, Denies weakness, Denies weight gain and Denies weight loss ENT Denies dizziness Card Denies chest pain, Denies leg edema, Denies lightheadedness, Denies palpitations, Denies dyspnea, Denies dyspnea on exertion, Denies orthopnea and Denies other (loss of consciousness) Resp Denies cough, Denies dyspnea and Denies dyspnea on exertion GI Denies hematochezia and Denies change in stool character Musc Denies abnormal gait, Denies muscle weakness, Denies numbness, Denies radiating pain into limb and Denies tingling Neuro Denies abnormal gait, Denies dizziness, Denies frequent falls, Denies numbness, Denies tingling and Denies weakness Endo Denies fatigue and Denies palpitations Coding
[2023-03-08 13:18] VITALS: BP 120/70; PULSE 75; BMI 38.4
--- NOTE | 2023-03-08 13:22 | MHC.OFFVIS ---
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 Accompanied by: Spouse Allergies No Known Allergies Allergy (Mild, Verified 12/16/22 14:54) NOT APPLICABLE Medication List - Last Reconciled 03/08/23 by Lokesh Yanez MD albuterol sulfate 90 mcg/actuation (Ventolin HFA) 2 puffs inhalation RQ4H PRN apixaban (Eliquis) 5 mg PO BID atorvastatin 40 mg PO BEDTIME blood sugar diagnostic (OneTouch Verio test strips) As directed test blood sugar 3 times a day blood sugar diagnostic (FreeStyle Lite Strips) As directed 4 times a day blood sugar diagnostic (OneTouch Verio test strips) TEST BLOOD SUGAR 4 - 5 TIMES DAILY DIRECTED blood-glucose meter (OneTouch Verio Flex Meter) As directed test blood sugar 3 times a day blood-glucose meter (FreeStyle [place] Lite kit) As directed checks 4x/day clonazepam 1 mg PO BEDTIME digoxin 250 mcg PO DAILY dulaglutide (Trulicity) mg subcut QWEEK fluoxetine 1 cap PO QAM insulin aspart U-100 20 units subcut TID insulin glargine 45 units subcut BEDTIME insulin syringe-needle U-100 (BD Insulin Syringe Ultra-Fine) As directed 4 times a day lancets (FreeStyle Lancets) As directed losartan-hydrochlorothiazide 100-25 mg 1 tab PO DAILY metformin 1,000 mg PO BID metoprolol succinate ER 200 mg PO BID oxycodone 5 mg PO Q8H PRN trazodone 200 mg PO BEDTIME PRN HPI HPI Comments History of Present Illness Details Sridhar comes for follow-up. He had seen digital sales assistant for consideration for AV [place] ablation. He was at that time advised to continue with rate control regimen with metoprolol and digoxin and his ICD parameters were changed to try to avoid inappropriate discharge. He has not had any new appropriate discharge in the last month. He denies any palpitations. Denies any heart failure symptoms. Denies any orthopnea, PND, leg edema. Overall he sees well. Denies any syncope or ICD discharge. No bleeding issues or neurologic events. Uses CPAP regularly. Takes all his medications. [facility] Medical History ICD (implantable cardioverter-defibrillator) discharge Sebaceous cyst Hx of cardiac pacemaker History of congestive heart failure Diabetes mellitus History of cardiomyopathy RACHELLE (obstructive sleep apnea) HTN (hypertension) Paroxysmal atrial fibrillation Morbid obesity ICD (implantable cardioverter-defibrillator) in place Surgical History Hx of cardiac cath Family History Father CVD (cardiovascular disease) Mother Diabetes Heart disease Social History Household Members: Spouse and Family Housing: Apartment Alcohol intake: current Alcohol intake frequency: former alcohol drinker Patient Tobacco Use Status: Never used Tobacco service: No Current occupational status: disabled Current occupation: right handed Review of Systems Const Denies chills, Denies fatigue, Denies fever(s), Denies frequent falls, Denies weakness, Denies weight gain and Denies weight loss ENT Denies dizziness Card Denies chest pain, Denies leg edema, Denies lightheadedness, Denies palpitations, Denies dyspnea, Denies dyspnea on exertion, Denies orthopnea and Denies other (loss of consciousness) Resp Denies cough, Denies dyspnea and Denies dyspnea on exertion GI Denies hematochezia and Denies change in stool character Musc Denies abnormal gait, Denies muscle weakness, Denies numbness, Denies radiating pain into limb and Denies tingling Neuro Denies abnormal gait, Denies dizziness, Denies frequent falls, Denies numbness, Denies tingling and Denies weakness Endo Denies fatigue and Denies palpitations Physical Exam Vital Signs: Last Vital Signs Pulse 75 03/08/23 13:18 BP 120/70 03/08/23 13:18 BMI result Body Mass Index 38.4 Const General: cooperative, comfortable, no acute distress, alert, awake and other (Patient's diaphoretic but says this is because of the heavy clothes he is w) Nutritional Appearance: obese morbidly obese Orientation/consciousness: patient oriented x3 Limitations: no limitations Neck Neck: Yes trachea midline, Yes supple and Yes no JVD Resp Effort & Inspection: normal respiratory effort Auscultation: clear to auscultation bilaterally Cardio Palpation: normal PMI Rate: regular rate Rhythm: regular rhythm Heart sounds: S1 normal heart sound present, S2 normal heart sound present and Other heart sounds present (Intermittent tachycardia) GI Inspection: Yes obesity Auscultation: normal bowel sounds Skin General skin exam: no rashes or lesions noted Neuro General: patient oriented x3 and no focal motor deficits Extrem General: No clubbing, No cyanosis and Yes edema (Minimal) Psych Appearance: grossly normal Affect: Anxious affect present Office Procedures Cardiac Device Check Cardiac Device Check Details: Single-chamber [facility] ICD in place. Programmed in VVI at 40 beats per minute. Heart rate still noted to be elevated today with 9200 beats per minute. Ventricular pacing thresholds are stable. Ventricular sensing is adequate. Pacing and shock lead impedance is stable. Battery life is at 2.4 years [id number] Cardiac Device Check, single lead implantable defibrillator Procedure code (CPT) selection complete Assessment & Plan Assessment & Plan (1) Persistent atrial fibrillation: Code(s): I48.19 - Other persistent atrial fibrillation Plan: Patient with persistent atrial fibrillation without any decompensation at this point time. He has had failure to achieve rhythm control approach. Currently on high dose of metoprolol as well as digoxin with borderline rate control. He has had inappropriate discharge in the past with ICD with rapid ventricular rate associated with atrial fibrillation. Is currently seeing electrophysiology as appointment tomorrow. Advised to continue to follow-up with him. Digoxin assay will be performed today. Continue full oral anticoagulation, currently on Eliquis 5 mg b.i.d.. Semi annual renal function test should be pursued. Continue CPAP therapy. (2) ICD (implantable cardioverter-defibrillator) in place: Comment: implanted in September 2015 for primary prevention. [facility] Code(s): Z95.810 - Presence of automatic (implantable) cardiac defibrillator Plan: ICD in place for primary prevention for severe cardiomyopathy. Currently doing well. Inappropriate discharge as above being followed by electrophysiology for consideration of AV [place] ablation. Will continue monitor remotely. (3) History of cardiomyopathy: Comment: nonobstructive CAD with LVEF of 25%, August 2015. Normalized LV ejection fraction after treatment of sleep apnea as well as hypertension and neurohormonal modulation Code(s): Z86.79 - Personal history of other diseases of the circulatory system Plan: Prior history of severe cardiomyopathy with nonobstructive CAD, nonischemic with heart failure syndrome. Clinically doing well with no recurrent decompensation with low normal LVEF of 50%. Continue aggressive rate control. Continue neurohormonal modulation with metoprolol as well as losartan therapy. Follow-up echocardiogram 6 months time. Continue CPAP therapy. Continue participate in weight loss program. Follow up in the clinic in 6 months time, sooner p.r.n.. Thank you for allowing me to partake in his care Orders: Orders Digoxin Today I48.19 - Other persistent atrial fibrillation Basic Metabolic Panel Today I48.19 - Other persistent atrial fibrillation CA echo transthoracic complete 6 Months Z86.79 - Personal history of other diseases of the circulatory system Coding Level of Care Code Est Pt Level 4 (81139) Diagnoses Persistent atrial fibrillation I48.19 ICD (implantable cardioverter-defibrillator) in place Z95.810 History of cardiomyopathy Z86.79 CPT Codes Cardiac Device Check - Cardiac Device 4: [id number] Cardiac Device Check, single lead implantable defibrillator ([id number])
[2023-03-08 13:30] VITALS: BMI 38.4
== END 2023-03-08 13:41 | disposition home or self-care (01) ==
PROVIDERS: PCP Internal Medicine; Visit Provider Internal Medicine Cardiovascular Disease
DX: I48.19 Other persistent atrial fibrillation (principal); Z95.810 Presence of automatic (implantable) cardiac defibrillator; Z86.79 Personal history of other diseases of the circulatory system
CPT/HCPCS: 93282; 99214

== ENCOUNTER → 2023-03-14 23:59 | Outpatient (BNV) | payer OTHER, SELFPAY ==
--- NOTE | 2023-03-22 08:36 | MHC.OFFVIS ---
Intake Intake Visit Reasons: Remote ICD Check- [facility] Allergies No Known Allergies Allergy (Mild, Verified 12/16/22 14:54) NOT APPLICABLE PFSH Medical History ICD (implantable cardioverter-defibrillator) discharge Sebaceous cyst Hx of cardiac pacemaker History of congestive heart failure Diabetes mellitus History of cardiomyopathy RACHELLE (obstructive sleep apnea) HTN (hypertension) Paroxysmal atrial fibrillation Morbid obesity ICD (implantable cardioverter-defibrillator) in place Surgical History Hx of cardiac cath Family History Father CVD (cardiovascular disease) Mother Diabetes Heart disease Social History Household Members: Spouse and Family Housing: Apartment Alcohol intake: current Alcohol intake frequency: former alcohol drinker Patient Tobacco Use Status: Never used Tobacco service: No Current occupational status: disabled Current occupation: right handed Office Procedures Cardiac Device Check Cardiac Device Check Details: Remote ICD report generated 03/14/2023. ICD function is adequate [id number] Cardiac Interrogation, implant defibrillator w/interim Procedure code (CPT) selection complete Assessment & Plan Assessment & Plan (1) ICD (implantable cardioverter-defibrillator) in place: Comment: implanted in September 2015 for primary prevention. [place] Code(s): Z95.810 - Presence of automatic (implantable) cardiac defibrillator Plan: See above Coding Level of Care Code Procedure Only Diagnoses ICD (implantable cardioverter-defibrillator) in place Z95.810 CPT Codes Cardiac Device Check - Cardiac Device 13: [id number] Cardiac Interrogation, implant defibrillator w/interim ([id number])
== END ==
PROVIDERS: PCP Internal Medicine; Visit Provider Internal Medicine Cardiovascular Disease
DX: I48.19 Other persistent atrial fibrillation (principal); Z95.810 Presence of automatic (implantable) cardiac defibrillator
CPT/HCPCS: 93295

== ENCOUNTER → 2023-03-17 23:59 | Outpatient (BNV) | payer OTHER, SELFPAY ==
--- NOTE | 2023-03-22 08:21 | MHC.OFFVIS ---
Intake Intake Visit Reasons: Remote HF Monitoring- [facility] Allergies No Known Allergies Allergy (Mild, Verified 12/16/22 14:54) NOT APPLICABLE PFSH Medical History ICD (implantable cardioverter-defibrillator) discharge Sebaceous cyst Hx of cardiac pacemaker History of congestive heart failure Diabetes mellitus History of cardiomyopathy RACHELLE (obstructive sleep apnea) HTN (hypertension) Paroxysmal atrial fibrillation Morbid obesity ICD (implantable cardioverter-defibrillator) in place Surgical History Hx of cardiac cath Family History Father CVD (cardiovascular disease) Mother Diabetes Heart disease Social History Household Members: Spouse and Family Housing: Apartment Alcohol intake: current Alcohol intake frequency: former alcohol drinker Patient Tobacco Use Status: Never used Tobacco service: No Current occupational status: disabled Current occupation: right handed Office Procedures Cardiac Device Check Cardiac Device Check Details: Remote heart failure report generated 03/17/2023. Heart failure parameters are stable [id number] Cardiac Device Interrogation, cardio physiologic monitor Procedure code (CPT) selection complete Assessment & Plan Assessment & Plan (1) ICD (implantable cardioverter-defibrillator) discharge: Code(s): Z45.02 - Encounter for adjustment and management of automatic implantable cardiac defibrillator Plan: See above Coding Level of Care Code Procedure Only Diagnoses ICD (implantable cardioverter-defibrillator) discharge Z45.02 CPT Codes Cardiac Device Check - Cardiac Device 15: [id number] Cardiac Device Interrogation, cardio physiologic monitor ([id number])
== END ==
PROVIDERS: PCP Internal Medicine; Visit Provider Internal Medicine Cardiovascular Disease
DX: I50.9 Heart failure, unspecified (principal); Z95.810 Presence of automatic (implantable) cardiac defibrillator
CPT/HCPCS: 93297

== ENCOUNTER → 2023-04-29 23:59 | Outpatient (BNV) | payer OTHER, SELFPAY ==
--- NOTE | 2023-05-02 12:40 | MHC.OFFVIS ---
Intake Intake Visit Reasons: Remote HF Monitoring- [facility] Allergies No Known Allergies Allergy (Mild, Verified 12/16/22 14:54) NOT APPLICABLE PFSH Medical History ICD (implantable cardioverter-defibrillator) discharge Sebaceous cyst Hx of cardiac pacemaker History of congestive heart failure Diabetes mellitus History of cardiomyopathy RACHELLE (obstructive sleep apnea) HTN (hypertension) Paroxysmal atrial fibrillation Morbid obesity ICD (implantable cardioverter-defibrillator) in place Surgical History Hx of cardiac cath Family History Father CVD (cardiovascular disease) Mother Diabetes Heart disease Social History Household Members: Spouse and Family Housing: Apartment Alcohol intake: current Alcohol intake frequency: former alcohol drinker Patient Tobacco Use Status: Never used Tobacco service: No Current occupational status: disabled Current occupation: right handed Office Procedures Cardiac Device Check Cardiac Device Check Details: Remote heart failure report generated 04/29/2023. Heart failure parameters are stable [id number] Cardiac Device Interrogation, cardio physiologic monitor Procedure code (CPT) selection complete Assessment & Plan Assessment & Plan (1) ICD (implantable cardioverter-defibrillator) in place: Comment: implanted in September 2015 for primary prevention. [place] Code(s): Z95.810 - Presence of automatic (implantable) cardiac defibrillator Plan: See above Coding Level of Care Code Procedure Only Diagnoses ICD (implantable cardioverter-defibrillator) in place Z95.810 CPT Codes Cardiac Device Check - Cardiac Device 15: [id number] Cardiac Device Interrogation, cardio physiologic monitor ([id number])
== END ==
PROVIDERS: PCP Internal Medicine; Visit Provider Internal Medicine Cardiovascular Disease
DX: I48.19 Other persistent atrial fibrillation (principal); Z95.810 Presence of automatic (implantable) cardiac defibrillator
CPT/HCPCS: 93297

== ENCOUNTER 2023-05-23 10:47 | Outpatient (REF) | payer OTHER, SELFPAY ==
[2023-05-23 13:53] LABS: Alanine Aminotransferase 15 U/L (0-40); Albumin Level 3.9 g/dL (3.5-5.0); Alkaline Phosphatase 103 U/L (39-117); Anion Gap 11 (12-20); Aspartate Amino Transferase 15 U/L (5-37); Bilirubin Total 0.4 mg/dL (0.0-1.0); Blood Urea Nitrogen 11 mg/dL (9-16); Calcium 9.4 mg/dL (8.4-10.2); Carbon Dioxide 25 mmol/L (22-29); Chloride 106 mmol/L (96-108); Estimated Glomerular Filt Rate > 60; Glucose Random 234 mg/dL (60-115); Potassium 3.7 mmol/L (3.3-5.1); Sodium 138 mmol/L (135-145); Total Protein 7.3 g/dL (6.5-8.0)
[2023-05-23 14:03] LABS: Estimated Average Glucose 163 mg/dL; Hemoglobin A1c % 7.3 % (<6.0)
== END 2023-05-23 10:48 | disposition home or self-care (01) ==
LOC: HO.10HDL 10:47
PROVIDERS: Visit Provider Internal Medicine
DX: E11.9 Type 2 diabetes mellitus without complications (principal); E78.00 Pure hypercholesterolemia, unspecified; I25.5 Ischemic cardiomyopathy; I48.91 Unspecified atrial fibrillation
CPT/HCPCS: 36415; 80053; 83036

== ENCOUNTER → 2023-06-13 23:59 | Outpatient (BNV) | payer OTHER, SELFPAY ==
--- NOTE | 2023-06-13 13:17 | MHC.OFFVIS ---
Intake Intake Visit Reasons: Remote ICD Check- [facility] Allergies No Known Allergies Allergy (Mild, Verified 12/16/22 14:54) NOT APPLICABLE PFSH Medical History ICD (implantable cardioverter-defibrillator) discharge Sebaceous cyst Hx of cardiac pacemaker History of congestive heart failure Diabetes mellitus History of cardiomyopathy RACHELLE (obstructive sleep apnea) HTN (hypertension) Paroxysmal atrial fibrillation Morbid obesity ICD (implantable cardioverter-defibrillator) in place Surgical History Hx of cardiac cath Family History Father CVD (cardiovascular disease) Mother Diabetes Heart disease Social History Household Members: Spouse and Family Housing: Apartment Alcohol intake: current Alcohol intake frequency: former alcohol drinker Patient Tobacco Use Status: Never used Tobacco service: No Current occupational status: disabled Current occupation: right handed Office Procedures Cardiac Device Check Cardiac Device Check Details: Remote ICD report generated 06/13/2023. ICD function is adequate [id number] Cardiac Interrogation, implant defibrillator w/interim Procedure code (CPT) selection complete Assessment & Plan Assessment & Plan (1) ICD (implantable cardioverter-defibrillator) in place: Comment: implanted in September 2015 for primary prevention. [place] Code(s): Z95.810 - Presence of automatic (implantable) cardiac defibrillator Plan: See above Coding Level of Care Code Procedure Only Diagnoses ICD (implantable cardioverter-defibrillator) in place Z95.810 CPT Codes Cardiac Device Check - Cardiac Device 13: [id number] Cardiac Interrogation, implant defibrillator w/interim ([id number])
== END ==
PROVIDERS: PCP Internal Medicine; Visit Provider Internal Medicine Cardiovascular Disease
DX: I50.9 Heart failure, unspecified (principal); Z95.810 Presence of automatic (implantable) cardiac defibrillator
CPT/HCPCS: 93295

== ENCOUNTER → 2023-06-24 23:59 | Outpatient (BNV) | payer OTHER, SELFPAY ==
--- NOTE | 2023-06-27 16:04 | MHC.OFFVIS ---
Intake Intake Visit Reasons: Remote HF monitoring- [facility] Allergies No Known Allergies Allergy (Mild, Verified 12/16/22 14:54) NOT APPLICABLE PFSH Medical History ICD (implantable cardioverter-defibrillator) discharge Sebaceous cyst Hx of cardiac pacemaker History of congestive heart failure Diabetes mellitus History of cardiomyopathy RACHELLE (obstructive sleep apnea) HTN (hypertension) Paroxysmal atrial fibrillation Morbid obesity ICD (implantable cardioverter-defibrillator) in place Surgical History Hx of cardiac cath Family History Father CVD (cardiovascular disease) Mother Diabetes Heart disease Social History Household Members: Spouse and Family Housing: Apartment Alcohol intake: current Alcohol intake frequency: former alcohol drinker Patient Tobacco Use Status: Never used Tobacco service: No Current occupational status: disabled Current occupation: right handed Office Procedures Cardiac Device Check Cardiac Device Check Details: Remote heart failure report generated 06/25/2023. Heart failure parameters are stable [id number] Cardiac Device Interrogation, cardio physiologic monitor Procedure code (CPT) selection complete Assessment & Plan Assessment & Plan (1) ICD (implantable cardioverter-defibrillator) in place: Comment: implanted in September 2015 for primary prevention. [facility] [place] Code(s): Z95.810 - Presence of automatic (implantable) cardiac defibrillator Plan: See above Coding Level of Care Code Procedure Only Diagnoses ICD (implantable cardioverter-defibrillator) in place Z95.810 CPT Codes Cardiac Device Check - Cardiac Device 15: [id number] Cardiac Device Interrogation, cardio physiologic monitor ([id number])
== END ==
PROVIDERS: PCP Internal Medicine; Visit Provider Internal Medicine Cardiovascular Disease
DX: Z45.02 Encounter for adjustment and management of automatic implantable cardiac defibrillator (principal)
CPT/HCPCS: 93297

== ENCOUNTER → 2023-08-31 10:54 | Outpatient (REF) | payer OTHER, SELFPAY ==
--- NOTE | 2023-08-31 10:58 | CA_ITS ---
Transthoracic Echocardiogram Patient (Last, First, Middle): Sridhar Krishnamurthy, Gender: Male Date of : 1965 Age: 57 Procedure Date: 08/31/2023 Procedure Type: Transthoracic Echocardiogram Location: OP Height: 170.18 cm Weight: 125. kg BSA: 2.32 m2 Heart Rate: bpm BP: 110 / 68 mmHg [employer]: TO Referring MD: Lokesh Yanez MD Symptoms: Z86.79 - Personal history of other diseases of the circulatory system Study Quality: Technically Difficult ECG Rhythm: Atrial Fibrillation Conclusions: - The left ventricular systolic function is low normal. The visually estimated ejection fraction is between 50-55%. - No obvious valvular pathology seen on this study. Findings Procedure Information The study quality is limited by patients body habitus. The patient declines contrast. Left Ventricle Normal left ventricular cavity size. The left ventricular systolic function is low normal. The visually estimated ejection fraction is between 50-55%. Regional wall motion abnormalities can not be excluded due to suboptimal endocardial definition. There is mild septal asymmetric hypertrophy. (declined contrast). Right Ventricle Mildly increased right ventricular cavity size. There is normal right ventricular systolic function. Atria The left atrium is mildly dilated. The right atrium is normal in size. Aortic Valve There is a normal trileaflet aortic valve. There is mild calcification of the aortic valve. There is no aortic valve stenosis. There is no aortic valve regurgitation. Mitral Valve The mitral valve appears normal. There is no mitral valve regurgitation. There is no mitral valve stenosis. Pulmonic Valve The pulmonic valve is likely normal. Tricuspid Valve There is mild tricuspid valve regurgitation. There is no evidence of pulmonary hypertension. Great Vessels The asc aorta is normal in size. Venous The inferior vena cava is normal in size and collapses greater than 50% with inspiration. Pericardium/Pleural There is no evidence of pericardial effusion. Prior Study Comparison No significant change compared to prior study dated: 08/02/2022. Recommendations, Care & Conclusions No obvious valvular pathology seen on this study. Measurements 2D Linear Measurements IVSd: 1.28 0.6-0.9/0.6-1.0 cm LVIDd: 4.55 3.9-5.3/4.2-5.9 cm LVIDd Index: 1.96 2.4-3.2/2.2-3.1 cm/m2 LVIDs: 3.08 2.0-3.6 cm LVPWd: 0.94 0.7-1.1 cm LA Diam: 3.90 2.7-3.8/3.0-4.0 cm LAIDs Index: 1.68 1.5-2.3 cm/m2 LV Mass: 224.59 67-162/88-224 g LV Mass Index: 96.81 43-95/49-115 g/m2 LVOT Diam: 2.40 3.0+(-)1.3 cm Mitral Valve MV Pk E: 0.61 MV Decel Time: 187.00 E'Lateral: 10.40 E'Medial: 7.94 E/E' Med: 7.70 E/E' Lat: 5.90 PHT: 55.00 MVA PHT: 4.00 Decel Zavala: 3.28 Aortic Valve AoV Pk Joni: 1.08 AoV Pk Grad: 5.00 LVOT LVOT Pk Joni: 0.74 LVOT Mn Joni: 0.49 LVOT VTI: 0.13 LVOT Pk Grad: 2.00 LVOT Mn Grad: 1.00 LVOT Diam: 2.40 LVOT Area: 4.52 Diastolic Function MV Pk E: 0.61 E'Medial: 7.94 E/E' Med: 7.70 E' Laterial: 10.40 E/E' Lat: 5.90 Right Ventricle TAPSE (mm): 20.30 TVS' Joni: 10.10 Tricuspid Valve TR Pk Joni: 2.26 TR Pk Grad: 20.00 Great Vessels Aorta Sinus of Valsalva: 3.64 2.0-3.5 cm Ao Asc: 3.40 2.1-3.4 cm Updated in Other Vendor System with Status of Final Francisco Barry MD electronically signed on 09/02/2023 1:52:29 PM with status of Final
--- NOTE | 2023-08-31 12:27 | HO.CARDTECH ---
Pt declines Definity contrast agent after unsuccessful IV attempt. States that he has a fear of needles.
[2023-08-31 12:28] LABS: MANUAL DIFF FLAG NO
[2023-08-31 12:38] LABS: Basophils Percent Auto 0.4 % (0-2); Eosinophils Absolute Auto 0.1 X10*3/uL (0.0-0.4); Hematocrit 41.6 % (42.0-52.0); Hemoglobin 13.7 g/dl (14.0-18.0); Imm Gran Abs Auto 0.03 X10*3/uL (0.00-0.03); Imm Gran Pct Auto 0.3 % (0.0-0.4); Lymphocytes Absolute Auto 1.9 X10*3/uL (1.2-4.9); Lymphocytes Percent Auto 19.7 % (20-40); Mean Corpuscular HGB Conc 32.9 g/dl (31.0-36.0); Mean Corpuscular Hemoglobin 26.7 pg (27.0-33.0); Mean Corpuscular Volume 81.1 fL (80.0-98.0); Mean Platelet Volume 10.9 fL (9.4-12.4); Monocytes Absolute Auto 0.8 X10*3/uL (0.1-1.2); Monocytes Percent Auto 8.6 % (2-11); Neutrophils Absolute Auto 6.6 x10*3/uL (2.0-8.3); Platelet Count 198 X10*3/uL (160-400); Red Blood Count 5.13 X10*6/uL (4.60-5.80); Red Cell Distribution Width 13.7 % (11.0-16.0); White Blood Count 9.4 X10*3/uL (4.8-10.8)
[2023-08-31 13:00] LABS: Alanine Aminotransferase 21 U/L (0-40); Albumin Level 3.9 g/dL (3.5-5.0); Alkaline Phosphatase 109 U/L (39-117); Anion Gap 11 (12-20); Aspartate Amino Transferase 14 U/L (5-37); Bilirubin Total 0.8 mg/dL (0.0-1.0); Blood Urea Nitrogen 13 mg/dL (9-16); Calcium 9.8 mg/dL (8.4-10.2); Carbon Dioxide 28 mmol/L (22-29); Chloride 102 mmol/L (96-108); Estimated Glomerular Filt Rate > 60; Glucose Random 317 mg/dL (60-115); Potassium 4.3 mmol/L (3.3-5.1); Sodium 137 mmol/L (135-145); Total Protein 7.3 g/dL (6.5-8.0)
[2023-08-31 13:12] LABS: Estimated Average Glucose 226 mg/dL; Hemoglobin A1c % 9.5 % (<6.0)
== END ==
LOC: HO.CARD 10:54
PROVIDERS: Absent Provider Internal Medicine; PCP Internal Medicine; Visit Provider Internal Medicine Cardiovascular Disease
DX: E11.9 Type 2 diabetes mellitus without complications (principal); G47.33 Obstructive sleep apnea (adult) (pediatric); I10 Essential (primary) hypertension; I48.91 Unspecified atrial fibrillation; Z79.01 Long term (current) use of anticoagulants; Z86.79 Personal history of other diseases of the circulatory system
CPT/HCPCS: 36415; 80053; 83036; 85025; 93306

== ENCOUNTER → 2023-08-31 10:58 | Outpatient (BNV) | payer OTHER, SELFPAY | PROVIDERS: Absent Provider Internal Medicine; PCP Internal Medicine; Visit Provider Internal Medicine | DX: I36.1 Nonrheumatic tricuspid (valve) insufficiency (principal); I35.8 Other nonrheumatic aortic valve disorders; I42.2 Other hypertrophic cardiomyopathy | CPT/HCPCS: 93306 ==

== ENCOUNTER → 2023-09-12 23:59 | Outpatient (BNV) | payer OTHER, SELFPAY ==
--- NOTE | 2023-09-12 13:29 | MHC.OFFVIS ---
Intake Visit Reasons: Remote HF monitoring- [facility] Allergies No Known Allergies Allergy (Mild, Verified 12/16/22 14:54) NOT APPLICABLE PFSH Medical History ICD (implantable cardioverter-defibrillator) discharge Sebaceous cyst Hx of cardiac pacemaker History of congestive heart failure Diabetes mellitus History of cardiomyopathy RACHELLE (obstructive sleep apnea) HTN (hypertension) Paroxysmal atrial fibrillation Morbid obesity ICD (implantable cardioverter-defibrillator) in place Surgical History Hx of cardiac cath Family History Father CVD (cardiovascular disease) Mother Diabetes Heart disease Social History Household Members: Spouse and Family Housing: Apartment Alcohol intake: current Alcohol intake frequency: former alcohol drinker Patient Tobacco Use Status: Never used Tobacco service: No Current occupational status: disabled Current occupation: right handed Office Procedures Cardiac Device Check Cardiac Device Check Details: Remote ICD report generated 09/12/2023. ICD function is adequate [id number] Cardiac Interrogation, implant defibrillator w/interim Procedure code (CPT) selection complete Assessment & Plan Assessment & Plan (1) ICD (implantable cardioverter-defibrillator) discharge: Code(s): Z45.02 - Encounter for adjustment and management of automatic implantable cardiac defibrillator Category: Medical Plan: See above Coding Level of Care Code Procedure Only Diagnoses ICD (implantable cardioverter-defibrillator) discharge Z45.02 CPT Codes Cardiac Device Check - Cardiac Device 13: [id number] Cardiac Interrogation, implant defibrillator w/interim ([id number])
== END ==
PROVIDERS: PCP Internal Medicine; Visit Provider Internal Medicine Cardiovascular Disease
DX: Z45.02 Encounter for adjustment and management of automatic implantable cardiac defibrillator (principal)
CPT/HCPCS: 93295

== ENCOUNTER 2023-10-24 13:34 | Outpatient (REF) | payer OTHER, SELFPAY ==
[2023-10-24 15:33] LABS: Anion Gap 11 (12-20); Blood Urea Nitrogen 9 mg/dL (9-16); Calcium 10.2 mg/dL (8.4-10.2); Carbon Dioxide 29 mmol/L (22-29); Chloride 103 mmol/L (96-108); Estimated Glomerular Filt Rate > 60; Glucose Random 149 mg/dL (60-115); Potassium 3.8 mmol/L (3.3-5.1); Sodium 139 mmol/L (135-145)
[2023-10-24 16:01] LABS: Digoxin 1.1 ng/mL (0.8-2.0)
== END 2023-10-24 13:35 | disposition home or self-care (01) ==
LOC: HO.LAB 13:34
PROVIDERS: PCP Internal Medicine; Visit Provider Internal Medicine Cardiovascular Disease
DX: I48.19 Other persistent atrial fibrillation (principal); Z95.810 Presence of automatic (implantable) cardiac defibrillator; Z86.79 Personal history of other diseases of the circulatory system; Z79.899 Other long term (current) drug therapy
CPT/HCPCS: 36415; 80048; 80162; 93005; 99212

== ENCOUNTER 2023-10-24 13:34 | Outpatient (AMB) | payer OTHER, SELFPAY ==
--- NOTE | 2023-10-24 13:38 | A.OFFVIS_ITS ---
Vital Signs 10/24/23 13:39 Height 5 ft 11 in Weight 277 lb 12.519 oz BMI 38.7 BP 120/76 Blood Pressure Location Lt brachial Position Sitting Pulse 78 Intake Visit Reasons: 6 mth f/up w/ defib ck Intake Note: 6 month follow-up with ekg and [facility] check [employer] Supervisor Required: Yes [employer] Supervisor Name: Shanice gordon Allergies No Known Allergies Allergy (Mild, Verified 12/16/22 14:54) NOT APPLICABLE Medication List - Last Reconciled 10/24/23 by Lokesh Yanez MD albuterol sulfate 90 mcg/actuation (Ventolin HFA) 2 puffs inhalation RQ4H PRN apixaban (Eliquis) 5 mg PO BID atorvastatin 40 mg PO BEDTIME blood sugar diagnostic (OneTouch Verio test strips) As directed test blood sugar 3 times a day blood sugar diagnostic (FreeStyle Lite Strips) As directed 4 times a day blood sugar diagnostic (OneTouch Verio test strips) TEST BLOOD SUGAR 4 - 5 TIMES DAILY DIRECTED blood-glucose meter (OneTouch Verio Flex Meter) As directed test blood sugar 3 times a day blood-glucose meter (FreeStyle [place] Lite kit) As directed checks 4x/day clonazepam 1 mg PO BEDTIME digoxin 250 mcg PO QAM dulaglutide (Trulicity) mg subcut QWEEK fluoxetine 20 mg PO QAM insulin aspart U-100 20 units subcut TID insulin glargine 45 units subcut BEDTIME insulin syringe-needle U-100 (BD Insulin Syringe Ultra-Fine) As directed 4 times a day lancets (FreeStyle Lancets) As directed losartan-hydrochlorothiazide 100-25 mg 1 tab PO DAILY metformin 1,000 mg PO BID metoprolol succinate ER 200 mg PO BID 30 days HPI Comments Details: Sridhar comes for follow-up. History was obtained presence of a certified housekeeping associate but patient was able to converse adequately without help of housekeeping associate. Patient denies any cardiac symptoms. Denies any exertional shortness of breath chest pain. Denies any orthopnea, PND, leg edema. Denies any palpitations, lightheadedness, syncope, ICD discharge. Taking all his medications. More recent echocardiogram shows LVEF of 50-55%. Uses CPAP at nighttime. Also walks regularly 1-2 miles without any issues. [facility] Medical History (Updated 10/24/23 @ 14:21 by Lokesh Yanez MD) ICD (implantable cardioverter-defibrillator) discharge Sebaceous cyst Hx of cardiac pacemaker History of congestive heart failure Diabetes mellitus History of cardiomyopathy RACHELLE (obstructive sleep apnea) HTN (hypertension) Paroxysmal atrial fibrillation Morbid obesity ICD (implantable cardioverter-defibrillator) in place Surgical History Hx of cardiac cath Family History Father CVD (cardiovascular disease) Mother Diabetes Heart disease Social History Household Members: Spouse and Family Housing: Apartment Alcohol intake: current Alcohol intake frequency: former alcohol drinker Patient Tobacco Use Status: Never used Tobacco service: No Current occupational status: disabled Current occupation: right handed Review of Systems Const Denies chills, Denies fatigue, Denies fever(s), Denies frequent falls, Denies weakness, Denies weight gain and Denies weight loss ENT Denies dizziness Card Denies chest pain, Denies leg edema, Denies lightheadedness, Denies palpitations, Denies dyspnea, Denies dyspnea on exertion, Denies orthopnea and Denies other (loss of consciousness) Resp Denies cough, Denies dyspnea and Denies dyspnea on exertion GI Denies hematochezia and Denies change in stool character Musc Denies abnormal gait, Denies muscle weakness, Denies numbness, Denies radiating pain into limb and Denies tingling Neuro Denies abnormal gait, Denies dizziness, Denies frequent falls, Denies numbness, Denies tingling and Denies weakness Endo Denies fatigue and Denies palpitations Physical Exam Vital Signs: Last Vital Signs Pulse 78 10/24/23 13:39 BP 120/76 10/24/23 13:39 BMI result Body Mass Index 38.7 Const General: cooperative, comfortable, no acute distress, alert, awake and other (Patient's diaphoretic but says this is because of the heavy clothes he is w) Nutritional Appearance: obese morbidly obese Orientation/consciousness: patient oriented x3 Limitations: no limitations Neck Neck: Yes trachea midline, Yes supple and Yes no JVD Resp Effort & Inspection: normal respiratory effort Auscultation: clear to auscultation bilaterally Cardio Palpation: normal PMI Rate: regular rate Rhythm: regular rhythm Heart sounds: S1 normal heart sound present, S2 normal heart sound present and Other heart sounds present (Intermittent tachycardia) GI Inspection: Yes obesity Auscultation: normal bowel sounds Skin General skin exam: no rashes or lesions noted Neuro General: patient oriented x3 and no focal motor deficits Extrem General: No clubbing, No cyanosis and Yes edema (Minimal) Psych Appearance: grossly normal Affect: Anxious affect present Office Procedures Cardiac Device Check Cardiac Device Check Details: Single-chamber [place] ICD in place. Programmed in VVI at 40 beats per minute. Multiple high ventricular rate episode consistent with supraventricular tachycardia. No ICD therapy. Ventricular capture thresholds adequate. Ventricular sensing is adequate. Pacing and shock lead impedance is stable. Battery life is at 1.5 years [id number] Cardiac Device Check, single lead implantable defibrillator Procedure code (CPT) selection complete EKG Details: EKG shows atrial fibrillation with nonspecific T-wave changes 01523-[id number], Complete Assessment & Plan Assessment & Plan (1) History of cardiomyopathy: Comment: nonobstructive CAD with LVEF of 25%, August 2015. Normalized LV ejection fraction after treatment of sleep apnea as well as hypertension and neurohormonal modulation Code(s): Z86.79 - Personal history of other diseases of the circulatory system Category: Medical Plan: Patient with prior history of severe cardiomyopathy with heart failure syndrome with nonobstructive CAD, nonischemic in nature. Possibly related to obstructive sleep apnea. Has done very well with neurohormonal modulation CPAP therapy and rate control. Continue current neurohormonal modulation with losartan and metoprolol therapy. No clinical symptoms or signs of congestive heart failure. Continue aggressive rate control. Continue CPAP therapy. Continue aggressive blood pressure control. Encouraged to continue to participate in regular physical activity and weight loss program. Signs and symptoms of heart failure were discussed. Patient understands and agrees. (2) ICD (implantable cardioverter-defibrillator) in place: Comment: implanted in September 2015 for primary prevention. [place] Code(s): Z95.810 - Presence of automatic (implantable) cardiac defibrillator Category: Medical Plan: ICD in place for primary prevention. ICD is working well. Has had inappropriate discharge related to rapid atrial fibrillation. Currently on dual rate control with metoprolol and digoxin. Continue the same. Still has somewhat fast ventricular rate but not frequent and not in ICD discharge range. Will continue monitor remotely for heart failure as well as for ICD check. (3) Persistent atrial fibrillation: Code(s): I48.19 - Other persistent atrial fibrillation Category: Medical Plan: Chronic atrial fibrillation has failed rhythm control approach. No worsening heart failure syndrome. Continue rate control approach. Has been denied by electrophysiology service to undergo ablation. If rate remains difficult control will pursue AV [place] ablation and may need an upgrade to Bi V device at that point time. Continue metoprolol and digoxin therapy. Digoxin assay every 6 months. Continue full oral anticoagulation, currently on Eliquis 5 mg b.i.d.. Semi annual renal function test to be pursued. Will follow up in the clinic in 6 months time, sooner p.r.n.. Thank you for allowing me to partake in his care Orders: Orders Digoxin Today I48.20 - Chronic atrial fibrillation, unspecified Basic Metabolic Panel Today I48.19 - Other persistent atrial fibrillation Coding Level of Care Code Est Pt Level 4 (19647) Diagnoses History of cardiomyopathy Z86.79 ICD (implantable cardioverter-defibrillator) in place Z95.810 Persistent atrial fibrillation I48.19 CPT Codes Cardiac Device Check - Cardiac Device 4: 08771-QF Cardiac Device Check, single lead implantable defibrillator ([id number]) EKG - CPT: 81462-[id number], Complete ([id number])
[2023-10-24 13:39] VITALS: BP 120/76; PULSE 78; BMI 38.7
== END 2023-10-24 14:19 | disposition home or self-care (01) ==
PROVIDERS: PCP Internal Medicine; Visit Provider Internal Medicine Cardiovascular Disease
DX: Z86.79 Personal history of other diseases of the circulatory system (principal); Z95.810 Presence of automatic (implantable) cardiac defibrillator; I48.19 Other persistent atrial fibrillation
CPT/HCPCS: 93010; 93282; 99214

== ENCOUNTER → 2023-12-06 23:59 | Outpatient (BNV) | payer OTHER, SELFPAY ==
--- NOTE | 2023-12-08 15:01 | MHC.OFFVIS ---
Intake Visit Reasons: Remote HF monitoring- [facility] Allergies No Known Allergies Allergy (Mild, Verified 12/16/22 14:54) NOT APPLICABLE PFSH Medical History (Updated 10/24/23 @ 14:21 by Lokesh Yanez MD) ICD (implantable cardioverter-defibrillator) discharge Sebaceous cyst Hx of cardiac pacemaker History of congestive heart failure Diabetes mellitus History of cardiomyopathy RACHELLE (obstructive sleep apnea) HTN (hypertension) Paroxysmal atrial fibrillation Morbid obesity ICD (implantable cardioverter-defibrillator) in place Surgical History Hx of cardiac cath Family History Father CVD (cardiovascular disease) Mother Diabetes Heart disease Social History Household Members: Spouse and Family Housing: Apartment Alcohol intake: current Alcohol intake frequency: former alcohol drinker Patient Tobacco Use Status: Never used Tobacco service: No Current occupational status: disabled Current occupation: right handed Office Procedures Cardiac Device Check Cardiac Device Check Details: Remote heart failure report generated 12/06/2023. Heart failure parameters are stable [id number] Cardiac Device Interrogation, cardio physiologic monitor Procedure code (CPT) selection complete Assessment & Plan Assessment & Plan (1) ICD (implantable cardioverter-defibrillator) in place: Comment: implanted in September 2015 for primary prevention. [place] Code(s): Z95.810 - Presence of automatic (implantable) cardiac defibrillator Category: Medical Plan: See above Coding Level of Care Code Procedure Only Diagnoses ICD (implantable cardioverter-defibrillator) in place Z95.810 CPT Codes Cardiac Device Check - Cardiac Device 15: 32864-Nodvto Cardiac Device Interrogation, cardio physiologic monitor ([id number])
== END ==
PROVIDERS: PCP Internal Medicine; Visit Provider Internal Medicine Cardiovascular Disease
DX: Z45.02 Encounter for adjustment and management of automatic implantable cardiac defibrillator (principal)
CPT/HCPCS: 93297

== ENCOUNTER → 2023-12-12 23:59 | Outpatient (BNV) | payer OTHER, SELFPAY ==
--- NOTE | 2023-12-14 13:14 | MHC.OFFVIS ---
Intake Visit Reasons: Remote ICD check- [facility] Allergies No Known Allergies Allergy (Mild, Verified 12/16/22 14:54) NOT APPLICABLE PFSH Medical History (Updated 10/24/23 @ 14:21 by Lokesh Yanez MD) ICD (implantable cardioverter-defibrillator) discharge Sebaceous cyst Hx of cardiac pacemaker History of congestive heart failure Diabetes mellitus History of cardiomyopathy RACHELLE (obstructive sleep apnea) HTN (hypertension) Paroxysmal atrial fibrillation Morbid obesity ICD (implantable cardioverter-defibrillator) in place Surgical History Hx of cardiac cath Family History Father CVD (cardiovascular disease) Mother Diabetes Heart disease Social History Household Members: Spouse and Family Housing: Apartment Alcohol intake: current Alcohol intake frequency: former alcohol drinker Patient Tobacco Use Status: Never used Tobacco service: No Current occupational status: disabled Current occupation: right handed Office Procedures Cardiac Device Check Cardiac Device Check Details: Remote ICD report generated 12/12/2023. ICD function is adequate [id number]-Gbomce Cardiac Interrogation, implant defibrillator w/interim Procedure code (CPT) selection complete Assessment & Plan Assessment & Plan (1) ICD (implantable cardioverter-defibrillator) in place: Comment: implanted in September 2015 for primary prevention. [place] Code(s): Z95.810 - Presence of automatic (implantable) cardiac defibrillator Category: Medical Plan: See above Coding Level of Care Code Procedure Only Diagnoses ICD (implantable cardioverter-defibrillator) in place Z95.810 CPT Codes Cardiac Device Check - Cardiac Device 13: 70124-Illtbl Cardiac Interrogation, implant defibrillator w/interim ([id number])
== END ==
PROVIDERS: PCP Internal Medicine; Visit Provider Internal Medicine Cardiovascular Disease
DX: Z45.02 Encounter for adjustment and management of automatic implantable cardiac defibrillator (principal)
CPT/HCPCS: 93295

== ENCOUNTER 2024-02-13 12:24 | Outpatient (REF) | payer OTHER, SELFPAY ==
[2024-02-13 13:11] LABS: Estimated Average Glucose 194 mg/dL; Hemoglobin A1C 236.0944 umol/L; Hemoglobin A1c % 8.4 % (<6.0); Total Hemoglobin (HGBA1C) 3463.5292 umol/L
[2024-02-13 13:59] LABS: Alanine Aminotransferase 13 U/L (0-40); Albumin Level 3.9 g/dL (3.5-5.0); Alkaline Phosphatase 87 U/L (39-117); Anion Gap 12 (12-20); Aspartate Amino Transferase 18 U/L (5-37); Bilirubin Total 0.7 mg/dL (0.0-1.0); Blood Urea Nitrogen 14 mg/dL (9-16); Calcium 9.4 mg/dL (8.4-10.2); Carbon Dioxide 25 mmol/L (22-29); Chloride 105 mmol/L (96-108); Estimated Glomerular Filt Rate > 60; Glucose Random 144 mg/dL (60-115); Potassium 3.9 mmol/L (3.3-5.1); Sodium 138 mmol/L (135-145); Total Protein 6.9 g/dL (6.5-8.0)
== END 2024-02-13 12:25 | disposition home or self-care (01) ==
LOC: HO.LAB 12:24
PROVIDERS: PCP Internal Medicine; Visit Provider Internal Medicine
DX: I10 Essential (primary) hypertension (principal); E11.65 Type 2 diabetes mellitus with hyperglycemia; I48.91 Unspecified atrial fibrillation; Z79.01 Long term (current) use of anticoagulants
CPT/HCPCS: 36415; 80053; 83036

== ENCOUNTER → 2024-03-12 23:59 | Outpatient (BNV) | payer OTHER, SELFPAY ==
--- NOTE | 2024-03-15 10:13 | MHC.OFFVIS ---
Intake Visit Reasons: Remote ICD Check- [facility] Allergies No Known Allergies Allergy (Mild, Verified 12/16/22 14:54) NOT APPLICABLE PFSH Medical History (Updated 10/24/23 @ 14:21 by Lokesh Yanez MD) ICD (implantable cardioverter-defibrillator) discharge Sebaceous cyst Hx of cardiac pacemaker History of congestive heart failure Diabetes mellitus History of cardiomyopathy RACHELLE (obstructive sleep apnea) HTN (hypertension) Paroxysmal atrial fibrillation Morbid obesity ICD (implantable cardioverter-defibrillator) in place Surgical History Hx of cardiac cath Family History Father CVD (cardiovascular disease) Mother Diabetes Heart disease Social History Household Members: Spouse and Family Housing: Apartment Alcohol intake: current Alcohol intake frequency: former alcohol drinker Patient Tobacco Use Status: Never used Tobacco service: No Current occupational status: disabled Current occupation: right handed Office Procedures Cardiac Device Check Cardiac Device Check Details: Remote ICD report generated 03/12/2024. ICD function is adequate. Multiple nonsustained VT episode, cardiac telemetry consistent with AFib with rapid ventricular response [id number] Cardiac Interrogation, implant defibrillator w/interim Procedure code (CPT) selection complete Assessment & Plan Assessment & Plan (1) ICD (implantable cardioverter-defibrillator) in place: Comment: implanted in September 2015 for primary prevention. [place] Code(s): Z95.810 - Presence of automatic (implantable) cardiac defibrillator Category: Medical Plan: See above Coding Level of Care Code Procedure Only Diagnoses ICD (implantable cardioverter-defibrillator) in place Z95.810 CPT Codes Cardiac Device Check - Cardiac Device 13: 54920-Vbpwws Cardiac Interrogation, implant defibrillator w/interim ([id number])
== END ==
PROVIDERS: PCP Internal Medicine; Visit Provider Internal Medicine Cardiovascular Disease
DX: I47.10 Supraventricular tachycardia, unspecified (principal); Z95.810 Presence of automatic (implantable) cardiac defibrillator
CPT/HCPCS: 93295

== ENCOUNTER 2024-05-01 13:20 | Outpatient (AMB) | payer OTHER, SELFPAY ==
[2024-05-01 13:24] VITALS: BP 130/84; PULSE 72; BMI 39.0
--- NOTE | 2024-05-01 13:24 | MHC.OFFVIS ---
Vital Signs 05/01/24 13:24 Height 5 ft 11 in Weight 279 lb 15.793 oz BMI 39.0 BP 130/84 Blood Pressure Location Lt brachial Position Sitting Pulse 72 Intake Visit Reasons: 6 mth f/up w/ ICD ck Intake Note: 6 month follow-up with [facility] good Second Grade Teacher Required: Yes Second Grade Teacher Services: Second Grade Teacher Present Second Grade Teacher Name: dipesh Esparza Allergies No Known Allergies Allergy (Mild, Verified 12/16/22 14:54) NOT APPLICABLE Medication List - Last Reconciled 05/01/24 by Lokesh Yanez MD albuterol sulfate 90 mcg/actuation (Ventolin HFA) 2 puffs inhalation RQ4H PRN apixaban (Eliquis) 5 mg PO BID atorvastatin 40 mg PO BEDTIME blood sugar diagnostic (OneTouch Verio test strips) As directed test blood sugar 3 times a day blood sugar diagnostic (FreeStyle Lite Strips) As directed 4 times a day blood sugar diagnostic (OneTouch Verio test strips) TEST BLOOD SUGAR 4 - 5 TIMES DAILY DIRECTED blood-glucose meter (OneTouch Verio Flex Meter) As directed test blood sugar 3 times a day blood-glucose meter (FreeStyle [place] Lite kit) As directed checks 4x/day digoxin 250 mcg PO QAM dulaglutide (Trulicity) mg subcut QWEEK fluoxetine 20 mg PO QAM fluticasone furoate 200 mcg/actuation (Arnuity Ellipta) inhalation insulin aspart U-100 20 units subcut TID insulin glargine 45 units subcut BEDTIME insulin syringe-needle U-100 (BD Insulin Syringe Ultra-Fine) As directed 4 times a day lancets (FreeStyle Lancets) As directed losartan-hydrochlorothiazide 100-25 mg 1 tab PO DAILY metformin 1,000 mg PO BID metoprolol succinate ER 200 mg PO BID 30 days HPI Comments Details: Sridhar comes for follow-up. History was obtained with help of automation control integrator. He said he has been doing very well. He was no heart failure symptoms. Denies any worsening shortness of breath, orthopnea, PND, leg edema. Denies any palpitations, lightheadedness, syncope, ICD discharge. Takes his medications. No bleeding issues or neurologic events. Uses CPAP regularly. Overall he feels well. [facility] Medical History ICD (implantable cardioverter-defibrillator) discharge Sebaceous cyst Hx of cardiac pacemaker History of congestive heart failure Diabetes mellitus History of cardiomyopathy RACHELLE (obstructive sleep apnea) HTN (hypertension) Paroxysmal atrial fibrillation Morbid obesity ICD (implantable cardioverter-defibrillator) in place Surgical History Hx of cardiac cath Family History Father CVD (cardiovascular disease) Mother Diabetes Heart disease Social History Household Members: Spouse and Family Housing: Apartment Alcohol intake: current Alcohol intake frequency: former alcohol drinker Patient Tobacco Use Status: Never used Tobacco service: No Current occupational status: disabled Current occupation: right handed Review of Systems Const Denies chills, Denies fatigue, Denies fever(s), Denies frequent falls, Denies weakness, Denies weight gain and Denies weight loss ENT Denies dizziness Card Denies chest pain, Denies leg edema, Denies lightheadedness, Denies palpitations, Denies dyspnea, Denies dyspnea on exertion, Denies orthopnea and Denies other (loss of consciousness) Resp Denies cough, Denies dyspnea and Denies dyspnea on exertion GI Denies hematochezia and Denies change in stool character Musc Denies abnormal gait, Denies muscle weakness, Denies numbness, Denies radiating pain into limb and Denies tingling Neuro Denies abnormal gait, Denies dizziness, Denies frequent falls, Denies numbness, Denies tingling and Denies weakness Endo Denies fatigue and Denies palpitations Physical Exam Vital Signs: Last Vital Signs Pulse 72 05/01/24 13:24 BP 130/84 05/01/24 13:24 BMI result Body Mass Index 39.0 Const General: cooperative, comfortable, no acute distress, alert, awake and other (Patient's diaphoretic but says this is because of the heavy clothes he is w) Nutritional Appearance: obese morbidly obese Orientation/consciousness: patient oriented x3 Limitations: no limitations Neck Neck: Yes trachea midline, Yes supple and Yes no JVD Resp Effort & Inspection: normal respiratory effort Auscultation: clear to auscultation bilaterally Cardio Palpation: normal PMI Rate: regular rate Rhythm: regular rhythm Heart sounds: S1 normal heart sound present, S2 normal heart sound present and Other heart sounds present (Intermittent tachycardia) GI Inspection: Yes obesity Auscultation: normal bowel sounds Skin General skin exam: no rashes or lesions noted Neuro General: patient oriented x3 and no focal motor deficits Extrem General: No clubbing, No cyanosis and Yes edema (Minimal) Psych Appearance: grossly normal Affect: Anxious affect present Office Procedures Cardiac Device Check Cardiac Device Check Details: Single-chamber [facility] ICD in place. Programmed in VVI at 40 beats per minute. Underlying atrial fibrillation noted. Rate is borderline controlled with heart rate varying 80-110 beats per minute. Ventricular pacing thresholds are adequate. Ventricular sensing is adequate. Pacing and shock lead impedance is stable. Battery life is at about 10 months 10554-MI Cardiac Device Check, single lead implantable defibrillator Procedure code (CPT) selection complete Assessment & Plan Assessment & Plan (1) History of cardiomyopathy: Comment: nonobstructive CAD with LVEF of 25%, August 2015. Normalized LV ejection fraction after treatment of sleep apnea as well as hypertension and neurohormonal modulation Code(s): Z86.79 - Personal history of other diseases of the circulatory system Category: Medical Plan: Prior history of cardiomyopathy with low normal LV ejection fraction 50-55%. Follow-up echocardiogram in 6 months time. Continue current neurohormonal modulation with metoprolol as well as losartan. Continue aggressive blood pressure control. Needs better rate control to avoid tachycardia mediated cardiomyopathy. Continue CPAP therapy. Signs and symptoms of heart failure were discussed. Encouraged to continue maintain activity level and participate in weight loss program. He understands and agrees. (2) Persistent atrial fibrillation: Code(s): I48.19 - Other persistent atrial fibrillation Category: Medical Plan: Persistent atrial fibrillation with borderline rate control. Has had prior inappropriate ICD discharge. Will add Cardizem CD 120 mg to his regimen in addition to metoprolol and digoxin therapy. Follow-up digoxin assay on a semi annual basis. Continue full oral anticoagulation, currently on Eliquis. Has failed rhythm control approach including with amiodarone therapy and has been consider not to be a candidate for ablation by EP in the past. (3) ICD (implantable cardioverter-defibrillator) in place: Comment: implanted in September 2015 for primary prevention. [facility] Code(s): Z95.810 - Presence of automatic (implantable) cardiac defibrillator Category: Medical Plan: ICD in place for primary prevention for severe cardiomyopathy. Has had inappropriate discharge in the past. Better rate control as above. Will continue monitor remotely. Follow up in the clinic in 6 months time, sooner p.r.n.. Thank you for allowing me to partake in his care Orders: Orders CA echo transthoracic complete 5 Months Z86.79 - Personal history of other diseases of the circulatory system Digoxin Today I48.20 - Chronic atrial fibrillation, unspecified Basic Metabolic Panel Today I48.19 - Other persistent atrial fibrillation Medications: New diltiazem HCl CD (Cardizem CD) 120 mg PO DAILY 30 caps 5RF Z86.79 - Personal history of other diseases of the circulatory system Coding Level of Care Code Est Pt Level 4 (69165) Diagnoses History of cardiomyopathy Z86.79 Persistent atrial fibrillation I48.19 ICD (implantable cardioverter-defibrillator) in place Z95.810 CPT Codes Cardiac Device Check - Cardiac Device 4: [id number] Cardiac Device Check, single lead implantable defibrillator ([id number])
== END 2024-05-01 13:48 | disposition home or self-care (01) ==
PROVIDERS: PCP Internal Medicine; Visit Provider Internal Medicine Cardiovascular Disease
DX: I48.19 Other persistent atrial fibrillation (principal); Z86.79 Personal history of other diseases of the circulatory system; Z95.810 Presence of automatic (implantable) cardiac defibrillator
CPT/HCPCS: 93282; 99214

== ENCOUNTER 2024-05-01 13:20 | Outpatient (REF) | payer OTHER, SELFPAY ==
--- OUTSIDE RECORDS SUMMARY | 2024-05-01 14:54 | XMS_ITS | Clinical Summary ---
Author Organization [employer] Address [address] [facility] [address] [place] [address] Care Team Providers Care Delivery Lead Name Role Phone Unavailable Primary Care Provider Unavailabl e Allergies No known active allergies Medications Eliquis 5 MG tablet 3 Active Acetaminophen Extra Strength 500 MG tablet Take 1,000 mg by mouth every 6 (six) hours if needed. 3 Active clonazePAM (KlonoPIN) 1 MG tablet 3 Active digoxin (Lanoxin) 250 MCG tab;et Take 250 mcg by mouth in the morning. 3 Active Trulicity 1.5 MG/0.5ML solution pen-injector INJECT ONE PEN (=1.5MG) SUBCUTANEOUSLY ONCE A WEEK DIRECTED 3 Active Flovent HFA 220 MCG/ACT inhaler INHALE 1 PUFF BY MOUTH TWICE DAILY RINSE MOUTH AFTER USING. 3 Active OneTouch Verio test strip 3 Active HYDROcodone-ac etaminophen ([place]) 5-325 MG tablet TAKE 1 TABLET BY MOUTH EVERY 4 TO 6 HOURS NEEDED FOR PAIN 3 Active NovoLOG 100 UNIT/ML solution INJECT 35 UNITS SUBCUTANEOUSLY THREE TIMES DAILY 3 Active Lantus 100 UNIT/ML injection INJECT 60 UNITS SUBCUTANEOUSLY ONCE DAILY AT BEDTIME 3 Active BD Insulin Syringe U/F 31G X 08/03 0.5 ML misc USE DIRECTED FOUR TIMES DAILY 3 Active Lancets (OneTouch Delica Plus [id number]) misc TEST BLOOD SUGAR THREE TIMES DAILY 3 Active losartan-hydro CHLOROthiazide (Hyzaar) 100-25 MG tablet 3 Active metFORMIN (Glucophage) 1000 MG tablet TAKE 1 TABLET BY MOUTH TWICE DAILY IN THE MORNING AND IN THE EVENING WITH FOOD 3 Active traZODone (Desyrel) 100 MG tablet 3 Active metoprolol succinate XL (Toprol-XL) 100 MG 24 hr tablet Take 100 mg by mouth. 6 Active atorvastatin (Lipitor) 80 MG tablet Take 80 mg by mouth Once per day. 6 Active aspirin 81 MG EC tablet Take 81 mg by mouth Once per day. Active ranolazine (Ranexa) 1000 MG 12 hr tablet Take 1,000 mg by mouth 2 times daily. Do not crush, chew, or split. Active Active Problems Problem Noted Date Diagnosed Date Periodontal disease 09/14/2022 Dental calculus 09/14/2022 Encounters Date Type Department Care Team Description 04/23/2024 12:00 PM EST Immunization [address] [address] Gracie Avilez LPN Encounter for immunization (Primary Dx) 04/23/2024 Travel 03/26/2024 11:45 AM EST Immunization [address] [address] Gracie Avilez LPN Encounter for immunization (Primary Dx) 03/26/2024 Travel from Last 3 Months Immunizations Name Administration Dates Next Due Hep B, adult 04/23/2024, 5,04/03/2001,03/06 Influenza Injectable Quadriv alant Preservative Free IIV4 MDCK 01/06/2023,02/03/2022,01/09/2021,12/03 Influenza, Split (incl. radha fied surface antigen) 11/21/2012,04/27/2012 Influenza, seasonal, injecta ble, preservative free 12/15/2023,01/21/2021 MMR 11/23/2007 Moderna Covid-19 Vaccine 12+ 01/05/2021 Pfizer Covid-19 Vaccine 12+ 12/15/2023, 3 Pneumococcal Conjugate PCV 13 01/06/2016 Pneumococcal Polysaccharide PPSV23 03/24,01/23/2021,02/17/2018,02/07 TD (adult), 2 Lf tetanus tox oid, preservative free, adsorbed 11/23/2007 Tdap 03/26/2024,11/21/2012 Zoster, Recombinant 11/01/2022,05/19/2021 Zoster, live 03/24/2021 Social History Tobacco Use Types Packs/Day Years Used Date Smoking Tobacco: Never Passive Smoke Exposure: Never Smokeless Tobacco: Never Tobacco Cessation:Counseling Given: Not Answered Sex and Gender Information Value Date Recorded Sex Assigned at Male 01/18/2022 10:15 AM EDT Legal Sex Male 10:15 AM EDT Gender Identity Male 01/18/2022 10:15 AM EDT Sexual Orientation Straight 01/18/2022 10 :15 AM EDT Last Filed Vital Signs Vital Sign Reading Time Taken Comments Blood Pressure 144/82 09/14/2022 10:18 AM EDT Pulse 78 09/14/2022 10:18 AM EDT Temperature - - Respiratory Rate - - Oxygen Saturation - - Inhaled Oxygen Concentration - - Weight - - Height - - Body Mass Index - - Plan of Treatment Upcoming Encounters Date Type Department Care Team (Late st Contact Info) Description 09/24/2024 12:00 PM EDT Immunization [facility]INE [address] [place] [address] Health Maintenance Due Date Last Done Comments CT Colonography 1966 Colonoscopy 1966 Colorectal Cancer Screening 1966 Depression Screening 1966 FIT DNA/Cologuard 1966 FIT 1966 FOBT 1966 HIV Screening 1966 Lipid Panel 1966 SDOH Screening 1966 Sigmoidoscopy 1966 Alcohol/Substance Use Screening 1978 Hepatitis C Screening 1984 Dental Prophylaxis 06/24/2019 12/22/2018 Dental X-Ray: Bitewings 04/03/2022 04/02/19 22, 10/16/2018, 04/12/2018, Additional history exists Dental Oral Exam 03/17/2023 09/14/2022, , 10/16/2018, Additional history exists Tobacco Screening 09/15/2023 09/14/2022 Dental X-Ray: Full Mouth 09/15/2025 023, 09/03/2020, 10/16/2018, Additional history exists DTaP/Tdap/Td Vaccines (3 - Td or Tdap) 03/26/2034 03/26/2024, 11/21/2012, 11/23/2007 RSV Patients and Patients Aged 60 years or older (1 - 1-dose 75+ series) 2041 Pneumococcal Vaccine: 50+ Years Completed 03/24/2021, 01/23/2021, 02/17/2018, Additional history exists Zoster Vaccines Completed 11/01/2022, 03/0 03/2021, 03/24/2021 COVID-19 Vaccine Completed 12/15/2023, , 02/03/2022, Additional history exists Influenza Vaccine Completed 12/15/2023, , 02/03/2022, Additional history exists Hepatitis B Vaccines Completed 04/23/2024, 03/26/2024, 04/03/2001, Additional history exists HIB Vaccines Aged Out No longer eligi ble based on patient's age to complete this topic HPV Vaccines Aged Out No longer eligi ble based on patient's age to complete this topic Hepatitis A Vaccines Aged Out No long er eligible based on patient's age to complete this topic IPV Vaccines Aged Out No longer eligi ble based on patient's age to complete this topic Meningococcal Vaccine Aged Out No dustin anand eligible based on patient's age to complete this topic RSV under 20 months Aged Out No longe r eligible based on patient's age to complete this topic Rotavirus Vaccines Aged Out No longer eligible based on patient's age to complete this topic Procedures Procedure Name Priority Date/Time Associated Diagnosis Comments PANORAMIC RADIOGRAPHIC IMAGE Routine 09/14/2022 10:00 AM EDT Periodontal disease Dental calculus Missing teeth, acquired PERIODIC ORAL EVALUATION - ESTABLISHED PATIENT Routine 09/14/2022 10:00 AM EDT BITEWINGS - 4 RADIOGRAPHIC IMAGES Routine 04/02/2021 12:00 AM EST PROPHYLAXIS - ADULT Routine 12/22/2018 1 2:00 AM EDT from Last 3 Months or Most Recently Relevant to Health Maintenance Insurance [employer] [facility] [employer] Member Subscriber Plan / Payer (Ef fective 2013-Present) Name:Sridhar Krishnamurthy Relation to Subscriber:Self Name:Sridhar Krishnamurthy Payer ID:Not on file Group ID:[id number] Type:Not on file Address: [address] - [facility] [employer] [facility] [facility] [employer] [facility]
--- OUTSIDE RECORDS SUMMARY | 2024-05-01 14:54 | XMS_ITS | Encounter Summary ---
Author Organization [facility] [employer] [facility] Address [address] [facility] [address] [place] [address] Care Team Providers Care Mattress Filler Name Role Phone Unavailable Primary Care Provider Unavailabl e Encounter Details Date Type Department Care Team (Latest Contact Info) Description 04/23/2024 Travel Social History Tobacco Use Types Packs/Day Years Used Date Smoking Tobacco: Never Passive Smoke Exposure: Never Smokeless Tobacco: Never Sex and Gender Information Value Date Recorded Sex Assigned at Male 01/18/2022 10:15 AM EDT Legal Sex Male 10:15 AM EDT Gender Identity Male 01/18/2022 10:15 AM EDT Sexual Orientation Straight 01/18/2022 10 :15 AM EDT documented as of this encounter Plan of Treatment Upcoming Encounters Date Type Department Care Team (Late st Contact Info) Description 09/24/2024 12:00 PM EDT Immunization [facility] MED[facility] [address] [place] [address] documented as of this encounter Visit Diagnoses Not on filedocumented in this encounter
--- OUTSIDE RECORDS SUMMARY | 2024-05-01 14:54 | XMS_ITS | Encounter Summary ---
Author Organization [facility] Address [address] [place] [address] [address] [place] [address] Care Team Providers Care Arch Cushion Press Operator Name Role Phone Unavailable Primary Care Provider Unavailabl e Encounter Details Date Type Department Care Team (Late st Contact Info) Description 04/23/2024 12:00 PM EST Immunization [facility] MEDICINE [address] [place] [address] Gracie Avilez LPN Encounter for immunization (Primary Dx) Social History Tobacco Use Types Packs/Day Years Used Date Smoking Tobacco: Never Passive Smoke Exposure: Never Smokeless Tobacco: Never Sex and Gender Information Value Date Recorded Sex Assigned at Male 01/18/2022 10:15 AM EDT Legal Sex Male 10:15 AM EDT Gender Identity Male 01/18/2022 10:15 AM EDT Sexual Orientation Straight 01/18/2022 10 :15 AM EDT documented as of this encounter Progress Notes * Gracie Avilez LPN - 04/23/2024 12:00 PM EST Subjective Patient ID: Sridhar Krishnamurthy is a 58 y.o. male who presents Pt here for 2nd, of 3 dose series, Engerix, Hepatitis B, Vaccine. Patient history and self attestation indicate no contraindication to vaccination. Pt advised of possible side effects of vaccine including fever, headache and fatigue and advised to stay for 15 minutes monitoring post-vaccine. Pt states understanding and agrees to vaccination. documented in this encounter Plan of Treatment Upcoming Encounters Date Type Department Care Team (Late st Contact Info) Description 09/24/2024 12:00 PM EDT Immunization [facility] MEDICINE [address] [place] [address] documented as of this encounter Visit Diagnoses Diagnosis Encounter for immunization- Primary documented in this encounter
[2024-05-01 15:53] LABS: Anion Gap 13 (12-20); Blood Urea Nitrogen 13 mg/dL (9-16); Calcium 9.5 mg/dL (8.4-10.2); Carbon Dioxide 25 mmol/L (22-29); Chloride 105 mmol/L (96-108); Estimated Glomerular Filt Rate > 60; Glucose Random 154 mg/dL (60-115); Potassium 4.1 mmol/L (3.3-5.1); Sodium 139 mmol/L (135-145)
[2024-05-01 17:06] LABS: Digoxin 0.8 ng/mL (0.8-2.0)
== END 2024-05-01 13:21 | disposition home or self-care (01) ==
LOC: HO.LAB 13:20
PROVIDERS: PCP Internal Medicine; Visit Provider Internal Medicine Cardiovascular Disease
DX: I48.19 Other persistent atrial fibrillation (principal); I48.20 Chronic atrial fibrillation, unspecified; Z86.79 Personal history of other diseases of the circulatory system; Z95.810 Presence of automatic (implantable) cardiac defibrillator
CPT/HCPCS: 36415; 80048; 80162; 99212

== ENCOUNTER → 2024-06-11 23:59 | Outpatient (BNV) | payer OTHER, SELFPAY ==
--- NOTE | 2024-06-16 13:38 | MHC.OFFVIS ---
Intake Visit Reasons: Remote ICD Check- [facility] Allergies No Known Allergies Allergy (Mild, Verified 12/16/22 14:54) NOT APPLICABLE PFSH Medical History ICD (implantable cardioverter-defibrillator) discharge Sebaceous cyst Hx of cardiac pacemaker History of congestive heart failure Diabetes mellitus History of cardiomyopathy RACHELLE (obstructive sleep apnea) HTN (hypertension) Paroxysmal atrial fibrillation Morbid obesity ICD (implantable cardioverter-defibrillator) in place Surgical History Hx of cardiac cath Family History Father CVD (cardiovascular disease) Mother Diabetes Heart disease Social History Household Members: Spouse and Family Housing: Apartment Alcohol intake: current Alcohol intake frequency: former alcohol drinker Patient Tobacco Use Status: Never used Tobacco service: No Current occupational status: disabled Current occupation: right handed Office Procedures Cardiac Device Check Cardiac Device Check Details: Remote ICD report generated 06/11/2024. ICD function is adequate [id number] Cardiac Interrogation, implant defibrillator w/interim Procedure code (CPT) selection complete Assessment & Plan Assessment & Plan (1) ICD (implantable cardioverter-defibrillator) in place: Comment: implanted in September 2015 for primary prevention. [place] Code(s): Z95.810 - Presence of automatic (implantable) cardiac defibrillator Category: Medical Plan: See above Coding Level of Care Code Procedure Only Diagnoses ICD (implantable cardioverter-defibrillator) in place Z95.810 CPT Codes Cardiac Device Check - Cardiac Device 13: [id number] Cardiac Interrogation, implant defibrillator w/interim ([id number])
== END ==
PROVIDERS: PCP Internal Medicine; Visit Provider Internal Medicine Cardiovascular Disease
DX: Z45.02 Encounter for adjustment and management of automatic implantable cardiac defibrillator (principal)
CPT/HCPCS: 93295

== ENCOUNTER 2024-06-15 09:32 | Outpatient (REF) | payer OTHER, SELFPAY ==
--- NOTE | ~2024-06-15 | XR_ITS ---
EXAMINATION: XR KNEE, LEFT CLINICAL INFORMATION: fall COMPARISON: March 10, 2018 TECHNIQUE: Three views of the left knee. FINDINGS: No acute cortical disruption or malalignment. Joint space narrowing involving mostly the medial compartment with associated articular surface sclerosis of the femoral condyles and tibial plateau. No suprapatellar bursa joint effusion. Calcifications within the suprapatellar bursa. Vascular calcifications. XR/XR knee LT 3V IMPRESSION: No acute fracture or dislocation. 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 Electronically signed by: Tre Aranda MD 06/15/2024 10:43 AM EDT
== END 2024-06-15 09:33 | disposition home or self-care (01) ==
LOC: HO.XRAY 09:32
PROVIDERS: PCP Internal Medicine; Visit Provider Internal Medicine
DX: M25.562 Pain in left knee (principal); Z91.81 History of falling
CPT/HCPCS: 73562

== ENCOUNTER → 2024-06-15 09:40 | Outpatient (BNV) | payer OTHER, SELFPAY | PROVIDERS: PCP Internal Medicine; Visit Provider Radiology Diagnostic Radiology | DX: M17.12 Unilateral primary osteoarthritis, left knee (principal) | CPT/HCPCS: 73562 ==

== ENCOUNTER 2024-07-16 12:32 | Outpatient (REF) | payer OTHER, SELFPAY ==
[2024-07-16 14:09] LABS: Estimated Average Glucose 258 mg/dL; Hemoglobin A1C 334.3377 umol/L; Hemoglobin A1c % 10.6 % (<6.0); Total Hemoglobin (HGBA1C) 3629.8338 umol/L
[2024-07-16 14:34] LABS: Alanine Aminotransferase 22 U/L (0-40); Alkaline Phosphatase 96 U/L (39-117); Anion Gap 14 (12-20); Aspartate Amino Transferase 22 U/L (5-37); Bilirubin Total 0.6 mg/dL (0.0-1.0); Blood Urea Nitrogen 10 mg/dL (9-16); Calcium 9.5 mg/dL (8.4-10.2); Carbon Dioxide 26 mmol/L (22-29); Chloride 104 mmol/L (96-108); Cholesterol 121 mg/dL (<200); Estimated Glomerular Filt Rate > 60; Glucose Random 91 mg/dL (60-115); HDL Cholesterol 47 mg/dL (>40); LDL Cholesterol Calculated 63 mg/dL (<100); Potassium 3.7 mmol/L (3.3-5.1); Sodium 140 mmol/L (135-145); Total Protein 7.2 g/dL (6.5-8.0); Triglycerides 55 mg/dL (<150)
[2024-07-16 14:45] LABS: Prostate Specific Antigen Scr 0.69 ng/mL (<0.05-4.0)
[2024-07-16 14:46] LABS: Creatinine Urine 127.86 mg/dL; Microalbum/Creatinine Ratio Ur 9.3 ug/mg cr (<30)
--- OUTSIDE RECORDS SUMMARY | 2024-07-16 14:57 | XMS_ITS | Patient Health Record ---
Author Organization [facility] Address [address] [place] [address] Care Team Providers Care Director Of Strategic Partnerships Name Role Phone Viv Richardson Primary Care Provider Unavailab Genet Tineo Unavailable [phone] Viv Richardson Unavailable Unavailable Darlene Silver Unavailable [phone] Allergies Allergen (clinical drug ingredient) Drug/Non Drug Allergy documented on EMR Reaction Allergy Type Onset Date Status acetaminophen Tylenol Unknown Drug Allergy Act te Reason For Referral No Information Medications Medication SIG (Take, Route, Frequency, Duration) Notes Start Date End Date Status Eliquis 5 MG Oral for 30 Activ e FLUoxetine HCl 20 MG Oral for 30 Active Atorvastatin Calcium 40 MG TAKE 1 TABLET BY MOUTH EVERY EVENING Oral for 90 Active clonazePAM 1 MG Oral for 30 Ac tive metFORMIN HCl Active Trulicity 3 MG/0.5ML Subcutaneous for 28 Not-Taking Digoxin Active Extra Depth Orthopedic Shoes (1 Pair) with Customized Heat Molded Multidensity Innersoles (3 Pair) as directed Dx: NIDDM (E11.9), Hammertoe Foot Deformity (M20.41,M20.42), Preulcerative Skin Lesion(s) (L85.1) 09/06/2023 Active Metoprolol Succinate ER 200 MG TAKE 1 TABLET BY MOUTH TWICE DAILY IN THE MORNING AND IN THE EVENING Oral for 30 Active traZODone HCl 100 MG Oral for 30 Active Lantus 100 UNIT/ML Subcutaneous for 84 Active Losartan Potassium-HCTZ 100-25 MG TAKE 1 TABLET BY MOUTH EVERY MORNING Oral for 90 Active Immunizations Vaccine Route Administration Date Status Comme nts Influenza Unknown 12/19/2022 Administered Social History Tobacco Use: Social History Observation Description Date Details (start date - stop date) Never Smoker NA - NA Tobacco Use/Smoking Question Answer Notes Are you a: nonsmoker Additional Findings: Tobacco Non-User Current no n-smoker Alcohol Screen Question Answer Notes Did you have a drink containing alcohol in the p ast year? No Points 0 Interpretation Negative Tobacco use other than smoking: Question Answer Notes Are you an other tobacco user? No Problems Problem Type SNOMED Code ICD Code Onset Dates Problem Status W/U Status Risk Notes Problem Acquired hammer toe of right foot (782840838672119 5) Other hammer toe(s) (acquired), right foot (M20.41) Active confirmed Problem Acquired hammer toe of left foot (154891405798190 3) Other hammer toe(s) (acquired), left foot (M20.42) Active confirmed Problem Type II diabetes mellitus without complication (146661739) Type 2 diabetes mellitus without complication (E11.9) Active confirmed Vital Signs Blood pressure diastolic 80 mm Hg 09/06/2023 Height 5ft8in in 09/06/2023 Blood pressure systolic 120 mm Hg 09/06/2023 Weight 238 lbs 09/06/2023 BMI 36.18 kg/m2 09/06/2023 Encounters Encounter Location Date Provider Diagnosis [address] [address] 09/06/2023 Genet Dillard Pain in right toe(s) M79.674 ; Tinea unguium B35.1 ; Pain in left toe(s) M79.675 ; Type 2 diabetes mellitus without complication E11.9 ; Other hammer toe(s) (acquired), left foot M20.42 and Other hammer toe(s) (acquired), right foot M20.41 [facility] [address] 09/05/2023 [facility] [address] 09/06/2023 [facility] [address] [address] 06/29/2024 Genet Dillard Assessments Encounter Date Diagnosis (ICD Code) Assessment Notes Treatment Notes Treatment Clinical Notes Section Notes 09/06/2023 Pain in right toe(s) (ICD-10 - M79.674) 09/06/2023 Tinea unguium (ICD-10 - B35.1) 09/06/2023 Pain in left toe(s) (ICD-10 - M79.675) 09/06/2023 Type 2 diabetes mellitus without complication (ICD-10 - E11.9) 09/06/2023 Other hammer toe(s) (acquired), left foot (ICD-10 - M20.42) 09/06/2023 Other hammer toe(s) (acquired), right foot (ICD-10 - M20.41) Patient Educated with: DIABETIC FOOT CARE INSTRUCTIONS.p df (DIABETIC FOOT CARE INSTRUCTIONS.p df) Plan Of Treatment Next Appt Details Provider Name:Darlene graham, 08/24/2024 12:45:00 PM, [address] [address], [place], [address], Insurance Providers Payer Name Payer Address Payer Phone Subscriber Number Group Number Insured Name Patient Relationship to Insured Coverage Start Date Coverage End Date [facility] [employer] SCO Claims [address] [place] [address] [id number] Sridhar Krishnamurthy Self - patient is the insured Medical (General) History Medical History History ICD Code Arthritis asthma Depression Diabetic Headaches/Migraines High blood pressure Chicken pox Pacemaker
--- OUTSIDE RECORDS SUMMARY | 2024-07-16 14:57 | XMS_ITS ---
Author Organization [facility] Address [address] [facility] [place] [address] Care Team Providers Care Crusher Loader Equipment Operator Name Role Phone Viv Richardson Primary Care Provider Unavailab Genet Tineo Unavailable [phone] Viv Richardson Unavailable Unavailable Darlene Silver Unavailable [phone] Medications Medication SIG (Take, Route, Frequency, Duration) Notes Start Date End Date Status Trulicity 3 MG/0.5ML Subcutaneous for 28 Not-Taking Extra Depth Orthopedic Shoes (1 Pair) with Customized Heat Molded Multidensity Innersoles (3 Pair) as directed Dx: NIDDM (E11.9), Hammertoe Foot Deformity (M20.41,M20.42), Preulcerative Skin Lesion(s) (L85.1) 09/06/2023 Active Metoprolol Succinate ER 200 MG TAKE 1 TABLET BY MOUTH TWICE DAILY IN THE MORNING AND IN THE EVENING Oral for 30 Active traZODone HCl 100 MG Oral for 30 Active Losartan Potassium-HCTZ 100-25 MG TAKE 1 TABLET BY MOUTH EVERY MORNING Oral for 90 Active Eliquis 5 MG Oral for 30 Activ e FLUoxetine HCl 20 MG Oral for 30 Active Atorvastatin Calcium 40 MG TAKE 1 TABLET BY MOUTH EVERY EVENING Oral for 90 Active clonazePAM 1 MG Oral for 30 Ac tive Lantus 100 UNIT/ML Subcutaneous for 84 Active metFORMIN HCl Active Digoxin Active Encounters Encounter Location Date [facility] [address] [address] 06/29/2024 Darlene Silver Plan Of Treatment Next Appt Details Provider Name:Darlene graham, 08/24/2024 12:45:00 PM, [address] [facility], [address], [place], [address], Progress Notes * Sridhar MATTHEW MDOB: [birth year] (58 yo M)Acc No.[id number]:06/29/2024 Progress Note Patient:?TIFFSridhar Provider:?Darlene Silver DPM :1965???Age:58 Y???Sex:Male Rickie e:06/29/2024 Address:[address] [place], [place] [address] Pcp:Viv Richardson Subjective: * Chief Complaints: * ??? * Medical History:? * Medications:?Taking Digoxin , Taking metFORMIN HCl , Taking [...] 3 MG/0.5ML Solution Pen-injector Subcutaneous Objective: * Vitals:? Assessment: Plan: * Treatment: * Images: * The named appointment provid er may or may not be the originator of this progress note, and it is not deemed complete until electronically signed by the appointment provider. Sign off status: Pending * Provider:?Darlene Silver DPM Date:?0 06/29/2024 Generated for Bertrand hunt/Laura/eTransmitting on:?07/16/2024 02:57 PM EDT
--- OUTSIDE RECORDS SUMMARY | 2024-07-16 14:57 | XMS_ITS ---
Author Organization [facility] Address [address] [place] [address] Care Team Providers Care Garment Examiner Name Role Phone Viv Richardson Primary Care Provider Unavailab Genet Tineo Unavailable [phone] Viv Richardson Unavailable Unavailable Medications Medication SIG (Take, Route, Frequency, Duration) Notes Start Date End Date Status Eliquis 5 MG Oral for 30 Activ e FLUoxetine HCl 20 MG Oral for 30 Active clonazePAM 1 MG Oral for 30 Ac tive Losartan Potassium-HCTZ 100-25 MG TAKE 1 TABLET BY MOUTH EVERY MORNING Oral for 90 Active Lantus 100 UNIT/ML Subcutaneous for 84 Active Atorvastatin Calcium 40 MG TAKE 1 TABLET BY MOUTH EVERY EVENING Oral for 90 Active Digoxin Active Extra Depth Orthopedic Shoes (1 Pair) with Customized Heat Molded Multidensity Innersoles (3 Pair) as directed Dx: NIDDM (E11.9), Hammertoe Foot Deformity (M20.41,M20.42), Preulcerative Skin Lesion(s) (L85.1) 09/06/2023 Active metFORMIN HCl Active Trulicity 3 MG/0.5ML Subcutaneous for 28 Not-Taking Metoprolol Succinate ER 200 MG TAKE 1 TABLET BY MOUTH TWICE DAILY IN THE MORNING AND IN THE EVENING Oral for 30 Active traZODone HCl 100 MG Oral for 30 Active Encounters Encounter Location Date Provider Diagnosis [facility] [address] [place] [address] 12/20/2023 Genet Dillard Plan Of Treatment Next Appt Details Provider Name:Darlene graham, 08/24/2024 12:45:00 PM, [address], [address], [place], [address], Progress Notes * TIFFSridhar SANCHES OB: [birth year] (58 yo M)Acc No.[id number]:12/20/2023 Progress Note Patient:?Sridhar MATTHEW Provider:?Genet Dillard DPM :1965???Age:58 Y???Sex:Male Rickie e:12/20/2023 Address:[address] [place] [address] [facility] [place] Pcp:Viv Richardson Subjective: * Chief Complaints: * [...] appointment provider. Sign off status: Pending * Provider:?Genet Dillard DPM Date:?03/2023 Generated for Bertrand hunt/Laura/eTsidneysmitting on:?07/16/2024 02:57 PM EDT
--- OUTSIDE RECORDS SUMMARY | 2024-07-16 14:57 | XMS_ITS | Clinical Summary ---
Author Organization [employer] Address [address] [facility] 7t [place] [address] Care Team Providers Care Travel Attendants Name Role Phone Unavailable Primary Care Provider [...] Verio test strip 3 Active HYDROcodone-ac etaminophen ([place]) 5-325 MG tablet TAKE 1 TABLET BY [...] DAILY 3 Active Lancets (OneTouch Delica Plus Sntbjl79D) misc TEST BLOOD SUGAR THREE TIMES DAILY [...] Team Description 04/23/2024 12:[address] [facility] [address] [place] [address] Gracie Avilez LPN Encounter for immunization (Primary Dx) 04/23/2024 Travel from Last 3 Months Immunizations Name [...] Info) Description 09/24/2024 12:[address] [facility] [address] [place] [address] Health Maintenance Due Date Last Done Comments [...] Recently Relevant to Health Maintenance Insurance DENTAL - [facility] < 65 [facility]
--- OUTSIDE RECORDS SUMMARY | 2024-07-16 14:57 | XMS_ITS ---
Author Organization [facility] Address [address] [place] [address] Care Team Providers Care Tile Helper Name Role Phone Viv Richardson Primary Care Provider Unavailab Genet Tineo Unavailable [phone] Viv Richardson Unavailable Unavailable REASON FOR VISIT n/s 06/29/24 Encounters Encounter Location Date Provider Diagnosis [facility] [address] [address] 06/29/2024 Genet Dillard Plan Of Treatment Next Appt Details Provider Name:Darlene Pedrito graham, 08/24/2024 12:45:00 PM, [address] [place] [address], [place], [address], Progress Notes * Sridhar MATTHEW MDOB: [birth year] (58 yo M)Acc No.[id number]:06/29/2024 Patient:?Sridhar MATTHEW :1965???Age:58 Y???Sex:Male Address:[address] [place] [address] * true * Date:? Generated for Printi ng/Faxing/eTransmitting on:?07/16/2024 02:56 PM EDT
== END 2024-07-16 12:33 | disposition home or self-care (01) ==
LOC: HO.LAB 12:32
PROVIDERS: PCP Internal Medicine; Visit Provider Internal Medicine
DX: E11.9 Type 2 diabetes mellitus without complications (principal); E78.00 Pure hypercholesterolemia, unspecified; G47.33 Obstructive sleep apnea (adult) (pediatric); I10 Essential (primary) hypertension; M25.562 Pain in left knee; N40.0 Benign prostatic hyperplasia without lower urinary tract symptoms; I73.9 Peripheral vascular disease, unspecified; Z95.810 Presence of automatic (implantable) cardiac defibrillator; I48.91 Unspecified atrial fibrillation; Z12.5 Encounter for screening for malignant neoplasm of prostate
CPT/HCPCS: 36415; 80053; 80061; 82043; 82570; 83036; 84153

== ENCOUNTER 2024-08-02 10:38 | Outpatient (REF) | payer OTHER, SELFPAY ==
--- OUTSIDE RECORDS SUMMARY | 2024-08-06 11:18 | XMS_ITS ---
Author Organization [facility] Address [address] [place] [address] Care Team Providers Care Vp Strategic Partnerships Name Role Phone Viv Richardson Primary Care Provider Unavailab Genet Tineo Unavailable [phone] Viv Richardson Unavailable Unavailable REASON FOR VISIT n/s 06/29/24 Encounters Encounter Location Date Provider Diagnosis [facility] [address] [address] 06/29/2024 Genet Dillard Plan Of Treatment Next Appt Details Provider Name:Darlene Major gladys, 08/24/2024 12:45:00 PM, [address] [place] [address], [place], [address], Progress Notes * Sridhar MATTHEW MDOB: [birth year] (58 yo M)Acc No.[id number]:06/29/2024 Patient:?Sridhar MATTHEW :1965???Age:58 Y???Sex:Male Address:[address] [place] [address] * true * Date:? Generated for Printi ng/Faxing/eTransmitting on:?08/06/2024 11:18 AM EDT
--- OUTSIDE RECORDS SUMMARY | 2024-08-06 11:18 | XMS_ITS ---
Author Organization [facility] Address [address] [facility] [place] [address] Care Team Providers Care Historic Sites Supervisor Name Role Phone Viv Richardson Primary Care Provider Unavailab Genet Tineo Unavailable [phone] Viv Richardson Unavailable Unavailable Darlene Silver Unavailable [phone] Medications Medication SIG (Take, Route, Frequency, Duration) [...] Active Encounters Encounter Location Date [facility] [address] [address] 06/29/2024 Darlene Silver Plan Of Treatment Next Appt Details Provider Name:Darlene graham, 08/24/2024 12:45:00 PM, [address] [facility], [address], [place], [address], Progress Notes * Sridhar MATTHEW MDOB: [birth year] (58 yo M)Acc No.[id number]:06/29/2024 Progress Note Patient:?TIFFSridhar Provider:?Darlene Silver DPM :1965???Age:58 Y???Sex:Male Rickie e:06/29/2024 Address:[address] [place], [place] [address] Pcp:Viv Richardson Subjective: * Chief Complaints: * [...] DPM Date:?0 06/29/2024 Generated for Bertrand hunt/Laura/eTransmitting on:?08/06/2024 11:18 AM EDT
--- OUTSIDE RECORDS SUMMARY | 2024-08-06 11:19 | XMS_ITS | Patient Health Record ---
Author Organization [facility] Address [address] [facility] [place] [address] Care Team Providers Care Utility Plant Operative Name Role Phone Viv Richardson Primary Care Provider Unavailab Genet Tineo Unavailable [phone] Viv Richardson Unavailable Unavailable Darlene Silver Unavailable [phone] Allergies Allergen (clinical drug ingredient) Drug/Non Drug [...] Problem Acquired hammer toe of right foot (504024036583128 5) Other hammer toe(s) (acquired), right foot (M20.41) Active confirmed Problem Acquired hammer toe of left foot (735928174852540 3) Other hammer toe(s) (acquired), left foot (M20.42) Active confirmed Problem Type II diabetes mellitus without complication (658042577) Type 2 diabetes mellitus without complication (E11.9) Active confirmed Vital Signs Blood pressure diastolic 80 mm Hg 09/06/2023 Height 5ft8in in 09/06/2023 Blood pressure systolic 120 mm Hg 09/06/2023 Weight 238 lbs 09/06/2023 BMI 36.18 kg/m2 09/06/2023 Encounters Encounter Location Date Provider Diagnosis [address] [address] 09/06/2023 Genet Dillard Pain in right toe(s) M79.674 ; Tinea unguium B35.1 ; Pain in left toe(s) M79.675 ; Type 2 diabetes mellitus without complication E11.9 ; Other hammer toe(s) (acquired), left foot M20.42 and Other hammer toe(s) (acquired), right foot M20.41 [facility] [address] 09/05/2023 [facility] [address] 09/06/2023 [facility]et Dillard [facility] [address] [address] 06/29/2024 Genet Dillard Assessments Encounter Date Diagnosis [...] Provider Name:Darlene graham, 08/24/2024 12:45:00 PM, [address] [address], [place], [address], Insurance Providers Payer Name Payer Address Payer Phone Subscriber Number Group Number Insured Name Patient Relationship to Insured Coverage Start Date Coverage End Date [facility] [employer] SCO Claims [address] [place] [address] [id number] Sridhar Krishnamurthy Self - patient is the insured Medical (General) History Medical History History ICD Code Arthritis asthma Depression Diabetic Headaches/Migraines High blood pressure Chicken pox Pacemaker
--- OUTSIDE RECORDS SUMMARY | 2024-08-06 11:19 | XMS_ITS | Clinical Summary ---
Author Organization [employer] Address [address] [facility] 7t [place] [address] Care Team Providers Care Power Plant Manager Name Role Phone Unavailable Primary Care Provider [...] Verio test strip 3 Active HYDROcodone-ac etaminophen ([place]) 5-325 MG tablet TAKE 1 TABLET BY [...] DAILY 3 Active Lancets (OneTouch Delica Plus Ilwiej19B) misc TEST BLOOD SUGAR THREE TIMES DAILY [...] Date Periodontal disease 09/14/2022 Dental calculus 09/14/2022 Immunizations Immunization Administration Dates Next Due Hep B, adult [...] Info) Description 09/24/2024 12:00 PM EDT Immunization [facility] [address] [place] [address] Health Maintenance Due Date Last Done Comments [...] Additional history exists Zoster Vaccines Completed 11/01/2022, 03/03/2021, 03/24/2021 COVID-19 Vaccine Completed 12/15/2023, , 02/03/2022, [...] patient's age to complete this topic Meningococcal B Vaccine Aged Out No l onger eligible based on patient's age to complete [...] Relevant to Health Maintenance Insurance D[facility]AL - [facility] < 65 [facility]
--- OUTSIDE RECORDS SUMMARY | 2024-08-06 11:19 | XMS_ITS ---
Author Organization [facility] Address [address] [place] [address] Care Team Providers Care Wet End Supervisor Name Role Phone Viv Richardson Primary Care Provider Unavailab Genet Tineo Unavailable [phone] Viv Richardson Unavailable Unavailable Medications Medication SIG [...] Active Encounters Encounter Location Date Provider Diagnosis [facility] [address] [place] [address] 12/20/2023 Genet Dillard Plan Of Treatment Next Appt Details Provider Name:Darlene graham, 08/24/2024 12:45:00 PM, [address] , [address], [place], [address], Progress Notes * TIFFSridhar SANCHES OB: [birth year] (58 yo M)Acc No.[id number]:12/20/2023 Progress Note Patient:?Sridhar MATTHEW Provider:?Genet Dillard DPM :1965???Age:58 Y???Sex:Male Rickie e:12/20/2023 Address:[address] [place] [address] [facility] [place] Pcp:Viv Richardson Subjective: * Chief Complaints: * [...] Dillard DPM Date:?03/2023 Generated for Bertrand hunt/Laura/eTsidneysmitting on:?08/06/2024 11:18 AM EDT
== END 2024-08-02 10:39 | disposition home or self-care (01) ==
LOC: HO.HOSX 10:38
PROVIDERS: Visit Provider Physician Assistant
DX: Z13.89 Encounter for screening for other disorder (principal)

== ENCOUNTER → 2024-09-10 23:59 | Outpatient (BNV) | payer OTHER, SELFPAY ==
--- NOTE | 2024-09-17 12:07 | MHC.OFFVIS ---
Intake Visit Reasons: Remote ICD check- [facility] [place] Allergies No Known Allergies Allergy (Mild, Verified 12/16/22 14:54) NOT APPLICABLE PFSH Medical History ICD (implantable cardioverter-defibrillator) discharge Sebaceous cyst Hx of cardiac pacemaker History of congestive heart failure Diabetes mellitus History of cardiomyopathy RACHELLE (obstructive sleep apnea) HTN (hypertension) Paroxysmal atrial fibrillation Morbid obesity ICD (implantable cardioverter-defibrillator) in place Surgical History Hx of cardiac cath Family History Father CVD (cardiovascular disease) Mother Diabetes Heart disease Social History Household Members: Spouse and Family Housing: Apartment Alcohol intake: current Alcohol intake frequency: former alcohol drinker Patient Tobacco Use Status: Never used Tobacco service: No Current occupational status: disabled Current occupation: right handed Office Procedures Cardiac Device Check Cardiac Device Check Details: Remote ICD report generated 09/10/2024. ICD function is adequate [id number] Cardiac Interrogation, implant defibrillator w/interim Procedure code (CPT) selection complete Assessment & Plan Assessment & Plan (1) ICD (implantable cardioverter-defibrillator) in place: Comment: implanted in September 2015 for primary prevention. [place] Code(s): Z95.810 - Presence of automatic (implantable) cardiac defibrillator Category: Medical Plan: See above Coding Level of Care Code Procedure Only Diagnoses ICD (implantable cardioverter-defibrillator) in place Z95.810 CPT Codes Cardiac Device Check - Cardiac Device 13: [id number] Cardiac Interrogation, implant defibrillator w/interim ([id number])
== END ==
PROVIDERS: PCP Internal Medicine; Visit Provider Internal Medicine Cardiovascular Disease
DX: Z45.02 Encounter for adjustment and management of automatic implantable cardiac defibrillator (principal)
CPT/HCPCS: 93295

== ENCOUNTER → 2024-10-26 10:00 | Outpatient (REF) | payer OTHER, SELFPAY ==
--- OUTSIDE RECORDS SUMMARY | 2024-06-29 05:30 | XMS_ITS ---
Author Organization [facility] Address [address] [facility] [place] [address] Care Team Providers Care Bill Board Poster Name Role Phone Viv Richardson Primary Care Provider Unavailab Darlene Garcia Unavailable [phone] Viv Richardson Unavailable Unavailable Medications Medication SIG [...] Active Encounters Encounter Location Date [facility] [address] [facility] [address] [place] [address] 06/29/2024 Darlene Silver Plan Of Treatment Next Appt Details Provider Name:Darlene graham, 11/27/2024 01:15:00 PM, [address] [facility], [address], [place], [address], Progress Notes * Sridhar MATTHEW MDOB: [birth year] (58 yo M)Acc No.[id number]:06/29/2024 Progress Note Patient: Sridhar LYLES Provider: Noemi Silver DPM :1965 A ge:58 Y S ex:Male Date:06/29/2024 Address:[address] [place], [place] [id number] Pcp:Viv Richardson Subjective: * Chief Complaints: * [...] 06/29/2024 Generated for Bertrand hunt/Laura/Andrey on: 0 10/26/2024 10:03 AM EDT
--- NOTE | 2024-10-26 10:03 | CA_ITS ---
Transthoracic Echocardiogram Patient (Last, First, Middle): Sridhar Krishnamurthy, Gender: Male Date of : 1965 Age: 58 Procedure Date: 10/26/2024 Procedure Type: Transthoracic Echocardiogram Location: OP Height: 170.18 cm Weight: 131.54 kg BSA: 2.37 m2 Heart Rate: bpm BP: 110 / 60 mmHg Felt Cutter: TO Referring MD: Lokesh Yanez MD Symptoms: Z86.79 - Personal history of other diseases of the circulatory system Study Quality: Fair/Declined contrast ECG Rhythm: Atrial Fibrillation Conclusions: - The left ventricular systolic function is low normal. The visually estimated ejection fraction is between 50-55%. - No obvious valvular pathology seen on this study. Findings Procedure Information The patient declines contrast. Left Ventricle Normal left ventricular cavity size. The left ventricular systolic function is low normal. The visually estimated ejection fraction is between 50-55%. Diastolic function is indeterminate on the basis of available data. There is mild septal asymmetric hypertrophy. Right Ventricle Mildly increased right ventricular cavity size. There is normal right ventricular systolic function. There is an ICD wire seen in the right ventricle. Atria Mild biatrial enlargement. Aortic Valve There is mild calcification of the aortic valve. There is no aortic valve stenosis. There is no aortic valve regurgitation. Mitral Valve The mitral valve appears normal. There is trace mitral valve regurgitation. There is no mitral valve stenosis. Pulmonic Valve The pulmonic valve is likely normal. Tricuspid Valve There is mild tricuspid valve regurgitation. There is no evidence of pulmonary hypertension. Great Vessels The asc aorta is normal in size. Venous The inferior vena cava is normal in size and collapses greater than 50% with inspiration. Pericardium/Pleural There is no evidence of pericardial effusion. Prior Study Comparison No significant change compared to prior study dated: 08/31/2023. Recommendations, Care & Conclusions No obvious valvular pathology seen on this study. Measurements 2D Linear Measurements IVSd: 1.06 0.6-0.9/0.6-1.0 cm LVIDd: 5.05 3.9-5.3/4.2-5.9 cm LVIDd Index: 2.13 2.4-3.2/2.2-3.1 cm/m2 LVIDs: 3.58 2.0-3.6 cm LVPWd: 0.92 0.7-1.1 cm LA Diam: 4.20 2.7-3.8/3.0-4.0 cm LAIDs Index: 1.77 1.5-2.3 cm/m2 LV Mass: 228.00 67-162/88-224 g LV Mass Index: 96.20 43-95/49-115 g/m2 LVOT Diam: 2.50 3.0+(-)1.3 cm Mitral Valve MV Pk E: 0.85 MV Decel Time: 199.00 E'Lateral: 11.80 E'Medial: 7.80 E/E' Med: 10.90 E/E' Lat: 7.20 PHT: 58.00 MVA PHT: 3.79 Decel [place]: 4.27 Aortic Valve AoV Pk Joni: 1.33 AoV Mn Joni: 0.94 AoV VTI: 0.28 AoV Pk Grad: 7.00 Aov Mn Grad: 4.00 SAYDA Cont.VTI: 3.09 LVOT LVOT Pk Joni: 0.89 LVOT Mn Joni: 0.58 LVOT VTI: 0.18 LVOT Pk Grad: 3.00 LVOT Mn Grad: 2.00 LVOT Diam: 2.50 LVOT Area: 4.91 Diastolic Function MV Pk E: 0.85 E'Medial: 7.80 E/E' Med: 10.90 E' Laterial: 11.80 E/E' Lat: 7.20 Right Ventricle TAPSE (mm): 20.80 TVS' Joni: 11.90 Tricuspid Valve TR Pk Joni: 2.48 TR Pk Grad: 25.00 RA Press: 8.00 RVSP: 33.00 Great Vessels Aorta Sinus of Valsalva: 3.73 2.0-3.5 cm Ao Asc: 3.50 2.1-3.4 cm Updated in Other Vendor System with Status of Final Francisco Barry MD electronically signed on 10/28/2024 1:16:05 PM with status of Final
--- OUTSIDE RECORDS SUMMARY | 2024-10-26 10:03 | XMS_ITS | Clinical Summary ---
Author Organization [email or web address] Address [address] [facility] 7[address] [place] [address] Care Team Providers Care Tank Processor Name Role Phone Unavailable Primary Care Provider [...] Verio test strip 3 Active HYDROcodone-ac etaminophen ([place]) 5-325 MG tablet TAKE 1 TABLET BY [...] DAILY 3 Active Lancets (OneTouch Delica Plus [id number]) misc TEST BLOOD SUGAR THREE TIMES DAILY [...] Mass Index - - Plan of Treatment Health Maintenance Due Date Last Done Comments CT Colonography 1966 Colonoscopy 1966 Colorectal Cancer Screening 1966 Depression Screening 1966 FIT DNA/Cologuard 1966 FIT 1966 FOBT 1966 HIV Screening 1966 Lipid Panel 1966 SDOH Screening 1966 Sigmoidoscopy 1966 Disability Screening 1966 Alcohol/Substance Use Screening 1978 Hepatitis C Screening 1984 Dental Prophylaxis 06/24/2019 12/22/2018 Dental X-Ray: Bitewings 04/03/2022 04/02/19 22, 10/16/2018, 04/12/2018, Additional history exists Dental Oral Exam 03/17/2023 09/14/2022, , 10/16/2018, Additional history exists Tobacco Screening 09/15/2023 09/14/2022 Influenza Vaccine (#1) 2024 4, 01/06/2023, 02/03/2022, Additional history exists Dental X-Ray: Full Mouth 09/15/2025 023, 09/03/2020, [...] Relevant to Health Maintenance Insurance DENTAL - [facility] Member Subscriber Plan / Payer (Ef fective 2013-Present) Name:Sridhar Krishnamurthy Relation to Subscriber:Self Name:Sridhar Krishnamurthy Payer ID:Not on file Group ID:[id number] Type:Not on file Address: [address] [facility] CARE [address] [facility]
== END ==
LOC: HO.CARD 10:00
PROVIDERS: PCP Internal Medicine; Visit Provider Internal Medicine Cardiovascular Disease
DX: Z86.79 Personal history of other diseases of the circulatory system (principal)
CPT/HCPCS: 93306

== ENCOUNTER → 2024-10-26 10:03 | Outpatient (BNV) | payer OTHER, SELFPAY | PROVIDERS: PCP Internal Medicine; Visit Provider Internal Medicine | DX: I42.2 Other hypertrophic cardiomyopathy (principal); I36.1 Nonrheumatic tricuspid (valve) insufficiency; Z86.79 Personal history of other diseases of the circulatory system | CPT/HCPCS: 93306 ==

== ENCOUNTER 2024-11-08 12:14 | Outpatient (REF) | payer OTHER, SELFPAY ==
[2024-11-08 13:07] LABS: Hemoglobin A1C 369.6001 umol/L; Total Hemoglobin (HGBA1C) 3313.9171 umol/L
[2024-11-08 13:20] LABS: Alanine Aminotransferase 30 U/L (0-40); Albumin Level 3.9 g/dL (3.5-5.0); Alkaline Phosphatase 96 U/L (39-117); Anion Gap 11 (12-20); Aspartate Amino Transferase 26 U/L (5-37); Blood Urea Nitrogen 11 mg/dL (9-16); Calcium 9.0 mg/dL (8.4-10.2); Carbon Dioxide 25 mmol/L (22-29); Chloride 106 mmol/L (96-108); Estimated Glomerular Filt Rate > 60; Potassium 3.8 mmol/L (3.3-5.1); Sodium 138 mmol/L (135-145); Total Protein 6.6 g/dL (6.5-8.0)
== END 2024-11-08 12:15 | disposition home or self-care (01) ==
LOC: HO.LAB 12:14
PROVIDERS: PCP Internal Medicine; Visit Provider Internal Medicine
DX: E11.9 Type 2 diabetes mellitus without complications (principal); I10 Essential (primary) hypertension; G47.33 Obstructive sleep apnea (adult) (pediatric); M25.462 Effusion, left knee; Z13.1 Encounter for screening for diabetes mellitus
CPT/HCPCS: 36415; 80053; 83036

== ENCOUNTER 2024-11-13 11:46 | Outpatient (AMB) | payer OTHER, SELFPAY ==
--- OUTSIDE RECORDS SUMMARY | 2023-12-20 09:00 | XMS_ITS ---
Author Organization [facility] Address [address] [place] [address] Care Team Providers Care Drum Operator Name Role Phone Viv Richardson Primary Care Provider Unavailab Darlene Garcia Unavailable [phone] Viv Richardson Unavailable Unavailable Genet Dillard Unavailable [phone] Medications Medication SIG (Take, Route, Frequency, Duration) [...] Active Encounters Encounter Location Date Provider Diagnosis [facility] [address] [place] [address] 12/20/2023 Genet Dillard Plan Of Treatment Next Appt Details Provider Name:Darlene graham, 11/27/2024 01:15:00 PM, [address] [facility], [address], [place], [address], Progress Notes * Sridhar MATTHEW MDOB: [birth year] (58 yo M)Acc No.[id number]:12/20/2023 Progress Note Patient: Sridhar LYLES Provider: Jose Dillard DPM :1965 A ge:58 Y S ex:Male Date:12/20/2023 Address:[address] [place] [address] [id number] Pcp:Viv Richardson Subjective: * Chief Complaints: * [...] Date: 1 Generated for Bertrand hunt/Laura/Andrey on: 0 11/13/2024 12:43 PM EDT
--- OUTSIDE RECORDS SUMMARY | 2024-06-29 05:30 | XMS_ITS ---
Author Organization [facility] Address [address] [facility] [place] [address] Care Team Providers Care [place] Therapist Name Role Phone Viv Richardson Primary Care Provider Unavailab Darlene Garcia Unavailable [phone] Viv Richardson Unavailable Unavailable Medications Medication SIG [...] Active Encounters Encounter [facility] Date [facility] [address] [facility] [facility] [address] [place] [address] 06/29/2024 Darlene Silver Plan Of Treatment Next Appt Details Provider Name:Darlene graham, 11/27/2024 01:15:00 PM, [address] [facility] [facility], [address], [place], [address], Progress Notes * Sridhar MATTHEW MDOB: [birth year] (58 yo M)Acc No.[id number]:06/29/2024 Progress Note Patient: Sridhar LYLES Provider: Noemi Silver DPM :1965 A ge:58 Y S ex:Male Date:06/29/2024 Address:[address] [place], [place] [id number] Pcp:Viv Richardson Subjective: * Chief Complaints: * [...] 0 06/29/2024 Generated for Bertrand hunt/Laura/Andrey on: 0 11/13/2024 12:43 PM EDT
--- OUTSIDE RECORDS SUMMARY | 2024-11-13 12:43 | XMS_ITS | Clinical Summary ---
Author Organization [facility] Address [address] [facility] [address] [place] [id number] Phone Care Team Providers Care Vice President Quality Assurance Name Role Phone Viv Richardson MD Primary Care Provider Allergies No known active allergies Medications ELIQUIS 5 mg tablet 01/20/20 23 Active acetaminophen (TYLENOL) 650 MG CR tablet Take 650 mg by mouth 3 (three) times a day. 11/10/19 23 Active atorvastatin (LIPITOR) 40 MG tablet Take 40 mg by mouth nightly at bedtime. 11/30/19 23 Active clonazePAM (KLONOPIN) 1 MG tablet 01/20/20 23 Active digoxin (LANOXIN) 250 mcg (0.25 mg) tablet 01/20/20 23 Active TRULICITY 1.5 mg/0.5 mL subcutaneous injection INJECT ONE PEN (=1.5MG) SUBCUTANEOUSLY ONCE A WEEK DIRECTED 10/26/19 23 Active FLUoxetine (PROZAC) 20 MG capsule 01/20/20 23 Active FLOVENT HFA 220 mcg/actuation inhaler INHALE 1 PUFF BY MOUTH TWICE DAILY RINSE MOUTH AFTER USING. 11/30/19 23 Active HYDROcodone-acet aminophen ([place]) 5-325 mg per tablet TAKE 1 TABLET BY MOUTH EVERY 4 TO 6 HOURS NEEDED FOR PAIN 09/02/19 23 Active NOVOLOG U-100 INSULIN ASPART 100 unit/mL injection vial 01/20/20 23 Active LANTUS U-100 INSULIN 100 unit/mL injection vial INJECT 60 UNITS SUBCUTANEOUSLY AT BEDTIME 12/18/19 23 Active losartan-hydroCH LOROthiazide (HYZAAR) 100-25 mg per tablet Take 1 tablet by mouth every morning. 11/30/19 23 Active metFORMIN (GLUCOPHAGE) 1000 MG tablet 01/20/20 23 Active metoprolol succinate (TOPROL-XL) 200 MG 24 hr tablet 01/20/20 Active insulin syringe-needle U-100 1 mL 31 gauge x 08/03 Syrg USE FOUR TIMES DAILY 11/10/19 Active BD INSULIN SYRINGE ULTRA-FINE 0.5 mL 31 gauge x 08/03 Syrg 01/20/20 Active traZODone (DESYREL) 100 MG tablet 01/20/20 Active Active Problems Problem Noted Date Diagnosed Date Inappropriate shocks from IC D (implantable cardioverter-defibrillator) 01/26/2023 Assessment & Plan (01/26/2023 2:40 PM EST): We had a detailed discussion with the patient with regards to lead upgrade and AV node ablation versus changing device therapy settings. Patient at this point opted for changing device therapy settings. VF zone was increased from 200 beats a minute to 240 beats a minute. VT monitor zone was increased from 150 beats a minute to 170 beats a minute. VT 1 zone was introduced at 214 bpm. Patient's SVT discriminators was also reprogrammed and was set for every 3 hours. Last known ejection fraction was about 50%. At this point it is reasonable to proceed with change in device settings. If patient does not have any inappropriate therapy with change in settings will avoid lead upgrade and AV node ablation at this point Chronic diastolic congestive heart failure 01/26 Assessment & Plan (01/26/2023 2:41 PM EST): Last known ejection fraction was 50%. Continue guideline directed medical therapy for heart failure. Permanent atrial fibrillation 01/26/2023 Assessment & Plan (01/26/2023 2:42 PM EST): Continue rate control with AV [place] blocking agents. Average heart rate noted to be between 50-100 beats a minute. Counseled about the importance of blood thinners Social History Tobacco Use Types Packs/Day Years Used Date Smoking Tobacco: Never Assessed Education Answer Date Recorded Are you interested in more education? Not on bayron e 01/07/2023 Are you concerned about learning? Not on file 01/07/2023 No 01/07/2023 No 01/07/2023 Digital Access Answer Date Recorded No 01/07/2023 No 01/07/2023 Reliable internet access at home? Not on file 01/07/2023 Device with a working camera? Not on file Sex and Gender Information Value Date Recorded Sex Assigned at Not on file Legal Sex Male 1:24 PM EDT Gender Identity Not on file Sexual Orientation Not on file Last Filed Vital Signs Vital Sign Reading Time Taken Comments Blood Pressure 122/68 03/09/2023 12:57 PM EST Pulse 93 03/09/2023 12:57 PM EST Temperature - - Respiratory Rate - - Oxygen Saturation 99% 03/09/2023 12:57 PM EST Inhaled Oxygen Concentration - - Weight 123.4 kg (272 lb) 03/09/2023 12:57 PM EST Height - - Body Mass Index - - Plan of Treatment Health Maintenance Due Date Last Done Comments CREATININE LEVEL 1966 LIPID PANEL 1966 POTASSIUM LEVEL 1966 DEPRESSION SCREENING 1978 SMOKING Hx and SMOKELESS TOBACCO SCREENING 12/08/1979 HEPATITIS C SCREENING 1984 HIV ONE-TIME SCREENING (18-65 YEARS) 1984 COLOGUARD 12/08/2011 COLONOSCOPY 12/08/2011 COLORECTAL CANCER SCREENING 12/08/2011 FIT TEST 12/08/2011 FOBT 12/08/2011 SIGMOIDOSCOPY 12/08/2011 VIRTUAL COLONOSCOPY 12/08/2011 ZOSTER VACCINES (1 of 2) 2016 PNEUMOCOCCAL VACCINES (50+ years) (2 of 2 - PCV) 03/24/2022 03/24/2021, 01/23/2021, 02/17/2018, Additional history exists Adult Td,Tdap Booster 11/21/2022 11/21/2012 COVID-19 VACCINE ( season) 2023 HEPATITIS A VACCINES Aged Out No long er eligible based on patient's age to complete this topic HIB VACCINES Aged Out No longer eligi ble based on patient's age to complete this topic MENINGOCOCCAL VACCINES (ACWY) Aged Out No longer eligible based on patient's age to complete this topic MENINGOCOCCAL VACCINES (B) Aged Out N o longer eligible based on patient's age to complete this topic Medical Devices Not on file Insurance [facility] MEDICARE REPLACEMENT [facility] MEDICARE REPLACEMENT [facility] MEDICARE REPLACEMENT [facility] MEDICARE REPLACEMENT [facility] MEDICARE REPLACEMENT [facility] MEDICARE REPLACEMENT Care Teams Vice President Quality Assurance Relationship Specialty Start Date End Date Viv Richardson MD [address] [place] [address] [place] [address] PCP - General Internal Medicine 12/15/22 Additional Source Comments The information contained in this document represents components of the legal health record. It is not the complete legal health record.[facility]
--- OUTSIDE RECORDS SUMMARY | 2024-11-13 12:43 | XMS_ITS | Clinical Summary ---
Author Organization [employer] Address [address] [facility] [address] [place] [address] Care Team Providers Care Farm Equipment Maintenance Supervisor Name Role Phone Unavailable Primary Care Provider [...] Verio test strip 3 Active HYDROcodone-ac etaminophen ([place]) 5-325 MG tablet TAKE 1 TABLET BY [...] DAILY 3 Active Lancets (OneTouch Delica Plus [id number]) misc TEST BLOOD SUGAR THREE TIMES DAILY [...] Relevant to Health Maintenance Insurance [facility] - [facility] Member Subscriber Plan / Payer (Ef fective 2013-Present) Name:Sridhar Krishnamurthy Relation to Subscriber:Self Name:Sridhar Krishnamurthy Payer ID:Not on file Group ID:[id number] Type:Not on file Address: [address] [facility] [address] [facility]
--- OUTSIDE RECORDS SUMMARY | 2024-11-13 12:43 | XMS_ITS | Patient Health Record ---
Author Organization [facility] Address [address] [place] [address] Care Team Providers Care Front Desk Monitor Name Role Phone Viv Richardson Primary Care Provider Unavailab Darlene Garcia Unavailable [phone] Viv Richardson Unavailable Unavailable Genet Dillard Unavailable [phone] Allergies Allergen (clinical drug ingredient) Drug/Non Drug Allergy documented on EMR Reaction Allergy Type Onset Date Status acetaminophen Tylenol Unknown Drug Allergy Act te Reason For Referral No Information Medications Medication SIG (Take, Route, Frequency, Duration) Notes Start Date End Date Status Digoxin Active metFORMIN HCl Active Atorvastatin Calcium 40 MG TAKE 1 TABLET BY MOUTH EVERY EVENING Oral; Duration: 90 Active clonazePAM 1 MG Oral; Duration: 30 Active Losartan Potassium-HCTZ 100-25 MG TAKE 1 TABLET BY MOUTH EVERY MORNING Oral; Duration: 90 Active Lantus 100 UNIT/ML Subcutaneous; Durati on: 84 Active Eliquis 5 MG Oral; Duration: 30 Active FLUoxetine HCl 20 MG Oral; Duration: 30 Active Ammonium Lactate 12 % 1 application Exte rnally to affected areas of dry skin to feet except for between the toes Twice a day; Duration: 30 days Active Trulicity 3 MG/0.5ML Subcutaneous; Durat ion: 28 Not-Taking Extra Depth Orthopedic Shoes (1 Pair) with Customized Heat Molded Multidensity Innersoles (3 Pair) as directed Dx: NIDDM (E11.9), Hammertoe Foot Deformity (M20.41,M20.42), Preulcerative Skin Lesion(s) (L85.1) 09/06/2023 Active traZODone HCl 100 MG Oral; Duration: 30 Active Metoprolol Succinate ER 200 MG TAKE 1 TABLET BY MOUTH TWICE DAILY IN THE MORNING AND IN THE EVENING Oral; Duration: 30 Active Immunizations Vaccine Route Administration Date Status [...] Problem Acquired hammer toe of right foot (860452684185156 5) Other hammer toe(s) (acquired), right foot (M20.41) Active confirmed Problem Acquired hammer toe of left foot (668936243104437 3) Other hammer toe(s) (acquired), left foot (M20.42) Active confirmed Problem Type II diabetes mellitus without complication (890324875) Type 2 diabetes mellitus without complication (E11.9) Active confirmed Problem Type I diabetes mellitus without complication (730300498) Type 1 diabetes mellitus without complication (E10.9) Active confirmed Vital Signs Heart Rate 88 /min 08/24/2024 Blood pressure diastolic 67 mm Hg 08/24/2024 Height 5ft 8in in 08/24/2024 Blood pressure systolic 102 mm Hg 08/24/2024 Weight 260 lbs 08/24/2024 BMI 39.53 kg/m2 08/24/2024 Procedures Procedure Date Ordered Date Performed Result Body Sit e 32056-[id number] NAIL, 6 OR MORE 08/24/2024 N/A Encounters Encounter [facility] [address] [facility] Darlene Silver Pain in right toe(s) M79.674 ; Tinea unguium B35.1 ; Pain in left toe(s) M79.675 ; Type 2 diabetes mellitus without complication E11.9 and Xerosis of skin L85.[address] [facility] [address] 06/29/2024 [facility] [place] [address] [address] 08/24/2024 Darlene Silver Assessments Encounter Date Diagnosis (ICD Code) Assessment Notes Treatment Notes Treatment Clinical Notes Section Notes 08/24/2024 Pain in right toe(s) (ICD-10 - M79.674) 08/24/2024 Tinea unguium (ICD-10 - B35.1) 08/24/2024 Pain in left toe(s) (ICD-10 - M79.675) 08/24/2024 Type 2 diabetes mellitus without complication (ICD-10 - E11.9) 08/24/2024 Xerosis of skin (ICD-10 - L85.3) Plan Of Treatment Pending Test Test Name Order Date [id number] NAIL, 6 OR MORE 08/24/2024 Next Appt Details Provider Name:Darlene Yolisjose gladys, 11/27/2024 01:15:00 PM, [address] [facility], [place] [address], [place], [address], Insurance Providers Payer Name Payer Address Payer Phone Subscriber Number Group Number Insured Name Patient Relationship to Insured Coverage Start Date Coverage End Date [facility] [employer] Claims [address] [place] [address] [id number] Sridhar Krishnamurthy Self - patient is the insured Medical (General) History Medical History History ICD Code Arthritis asthma Depression Diabetic Headaches/Migraines High blood pressure Chicken pox Pacemaker
--- NOTE | 2024-11-13 12:45 | MHC.OFFVIS ---
Vital Signs 11/13/24 12:46 Height 5 ft 11 in Weight 286 lb 9.615 oz BMI 40.0 BP 120/76 Blood Pressure Location Lt brachial Position Sitting Pulse 53 Intake Visit Reasons: 6m follow up Intake Note: 6 month follow-up with ekg and [facility] check hearts ok Superintendent [employer] Required: Yes Superintendent [employer] Construction Services: Superintendent [employer] Present Superintendent [employer] Name: Ivan Garza Allergies No Known Allergies Allergy (Mild, Verified 12/16/22 14:54) NOT APPLICABLE Medication List - Last Reconciled 11/13/24 by Lokesh Yanez MD albuterol sulfate 90 mcg/actuation (Ventolin HFA) 2 puffs inhalation RQ4H PRN apixaban (Eliquis) 5 mg PO BID atorvastatin 40 mg PO BEDTIME blood sugar diagnostic (OneTouch Verio test strips) As directed test blood sugar 3 times a day blood sugar diagnostic (FreeStyle Lite Strips) As directed 4 times a day blood sugar diagnostic (OneTouch Verio test strips) TEST BLOOD SUGAR 4 - 5 TIMES DAILY DIRECTED blood-glucose meter (OneTouch Verio Flex Meter) As directed test blood sugar 3 times a day blood-glucose meter (FreeStyle [place] Lite kit) As directed checks 4x/day digoxin 250 mcg PO QAM diltiazem HCl CD (Cartia XT) 120 mg PO QAM dulaglutide (Trulicity) mg subcut QWEEK fluoxetine 20 mg PO QAM fluticasone furoate 200 mcg/actuation (Arnuity Ellipta) inhalation insulin aspart U-100 20 units subcut TID insulin glargine 45 units subcut BEDTIME insulin syringe-needle U-100 (BD Insulin Syringe Ultra-Fine) As directed 4 times a day lancets (FreeStyle Lancets) As directed losartan-hydrochlorothiazide 100-25 mg 1 tab PO DAILY metformin 1,000 mg PO BID metoprolol succinate ER 200 mg PO BID 30 days HPI Comments Details: Sridhar comes for follow-up, history obtained with help of a certified juice tester over the telephone. Patient says he is feeling great. He has had no cardiac symptoms. He said he walks a lot and has no symptoms of shortness of breath. Denies orthopnea, PND. Denies any leg edema. Taking all his medications. No lightheadedness, syncope. No prolonged palpitation irregular heartbeat or racing heart rate. Denies any exertional chest pain. No bleeding issues or neurologic events. No lightheadedness, syncope, ICD discharge. Takes all his medications. Uses CPAP. [facility] Medical History ICD (implantable cardioverter-defibrillator) discharge Sebaceous cyst Hx of cardiac pacemaker History of congestive heart failure Diabetes mellitus History of cardiomyopathy RACHELLE (obstructive sleep apnea) HTN (hypertension) Paroxysmal atrial fibrillation Morbid obesity ICD (implantable cardioverter-defibrillator) in place Surgical History Hx of cardiac cath Family History Father CVD (cardiovascular disease) Mother Diabetes Heart disease Social History Household Members: Spouse and Family Housing: Apartment Alcohol intake: current Alcohol intake frequency: former alcohol drinker Patient Tobacco Use Status: Never used Tobacco service: No Current occupational status: disabled Current occupation: right handed Review of Systems Const Denies chills, Denies fatigue, Denies fever(s), Denies frequent falls, Denies weakness, Denies weight gain and Denies weight loss ENT Denies dizziness Card Denies chest pain, Denies leg edema, Denies lightheadedness, Denies palpitations, Denies dyspnea, Denies dyspnea on exertion, Denies orthopnea and Denies other (loss of consciousness) Resp Denies cough, Denies dyspnea and Denies dyspnea on exertion GI Denies hematochezia and Denies change in stool character Musc Denies abnormal gait, Denies muscle weakness, Denies numbness, Denies radiating pain into limb and Denies tingling Neuro Denies abnormal gait, Denies dizziness, Denies frequent falls, Denies numbness, Denies tingling and Denies weakness Endo Denies fatigue and Denies palpitations Physical Exam Vital Signs: Last Vital Signs Pulse 53 11/13/24 12:46 BP 120/76 11/13/24 12:46 BMI result Body Mass Index 40.0 Const General: cooperative, comfortable, no acute distress, alert, awake and other (Patient's diaphoretic but says this is because of the heavy clothes he is w) Nutritional Appearance: obese morbidly obese Orientation/consciousness: patient oriented x3 Limitations: no limitations Neck Neck: Yes trachea midline, Yes supple and Yes no JVD Resp Effort & Inspection: normal respiratory effort Auscultation: clear to auscultation bilaterally Cardio Palpation: normal PMI Rate: regular rate Rhythm: abnormal rhythm irregularly irregular Heart sounds: S1 normal heart sound present, S2 normal heart sound present and Other heart sounds present (Intermittent tachycardia) GI Inspection: Yes obesity Auscultation: normal bowel sounds Skin General skin exam: no rashes or lesions noted Neuro General: patient oriented x3 and no focal motor deficits Extrem General: No clubbing, No cyanosis and Yes edema (Minimal) Psych Appearance: grossly normal Affect: Anxious affect present Office Procedures Cardiac Device Check Cardiac Device Check Details: Single-chamber [place] ICD in place. Programmed in VVI at 40 beats per minute. Battery life is at 3.7 months. Ventricular pacing thresholds are stable. Pacing and shock lead impedance is stable. No significant arrhythmias noted. [id number]-[id number] Cardiac Device Check, single lead implantable defibrillator Procedure code (CPT) selection complete EKG Details: EKG shows atrial fibrillation with slow ventricular response at 53 beats per minute with nonspecific STT wave changes 71341-[id number], Complete Assessment & Plan Assessment & Plan (1) Persistent atrial fibrillation: Code(s): I48.19 - Other persistent atrial fibrillation Category: Medical Plan: Persistent rate control atrial fibrillation in this middle-aged man with no obvious symptoms. Rate is is very well controlled on current triple therapy. Continue the same. Importance of good rate control was discussed. Continue digoxin therapy. Digoxin assay is needed every 6 months. Will send him down for the same. Continue Cardizem as well as metoprolol therapy. Continue full oral anticoagulation, currently on Eliquis. Semi annual renal function test is recommended. Continue to participate in regular physical activity and weight loss program. Continue CPAP therapy. 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 Normalized LV ejection fraction after treatment of sleep apnea as well as hypertension and neurohormonal modulation Code(s): Z86.79 - Personal history of other diseases of the circulatory system Category: Medical Plan: Prior history of heart failure as well as cardiomyopathy, nonischemic. LV ejection fraction has improved with rate control as well as current neurohormonal modulation with losartan as well as metoprolol therapy. Continue the same. No signs or symptoms of heart failure currently. Continue current therapy. Currently not on any loop diuretics. Signs and symptoms of heart failure were discussed. Will follow echocardiogram annually. Continue CPAP therapy. (3) ICD (implantable cardioverter-defibrillator) in place: Comment: implanted in September 2015 for primary prevention. [place] Code(s): Z95.810 - Presence of automatic (implantable) cardiac defibrillator Category: Medical Plan: ICD in place, working well. This was placed in for primary prevention for severe cardiomyopathy. LV ejection fraction has improved since then although his cardiomyopathy process is in his record phase will need to pursue ICD therapy. Will follow up in the clinic in 3 months time. Thank you for allowing me to partake in his care Orders: Orders Digoxin Today I48.19 - Other persistent atrial fibrillation, I48.20 - Chronic atrial fibrillation, unspecified Coding Level of Care Code Est Pt Level 4 (90037) Complex EM visit Add On G2211 Diagnoses Persistent atrial fibrillation I48.19 History of cardiomyopathy Z86.79 ICD (implantable cardioverter-defibrillator) in place Z95.810 CPT Codes Cardiac Device Check - Cardiac Device 4: 88591-WP Cardiac Device Check, single lead implantable defibrillator ([id number]) EKG - CPT: 58615-Lmhildixgmgntymtz, Complete ([id number])
[2024-11-13 12:46] VITALS: BP 120/76; PULSE 53; BMI 40.0
== END 2024-11-13 13:13 | disposition home or self-care (01) ==
LOC: HO.HCS 11:46
PROVIDERS: PCP Internal Medicine; Visit Provider Internal Medicine Cardiovascular Disease
DX: I48.19 Other persistent atrial fibrillation (principal); Z86.79 Personal history of other diseases of the circulatory system; Z95.810 Presence of automatic (implantable) cardiac defibrillator
CPT/HCPCS: 93010; 93282; 99214; G2211

== ENCOUNTER 2024-11-13 11:46 | Outpatient (REF) | payer OTHER, SELFPAY ==
[2024-11-13 15:20] LABS: Digoxin 0.9 ng/mL (0.8-2.0)
== END 2024-11-13 11:47 | disposition home or self-care (01) ==
LOC: HO.LAB 11:46
PROVIDERS: PCP Internal Medicine; Visit Provider Internal Medicine Cardiovascular Disease
DX: I48.19 Other persistent atrial fibrillation (principal); Z86.79 Personal history of other diseases of the circulatory system; Z95.810 Presence of automatic (implantable) cardiac defibrillator; Z79.01 Long term (current) use of anticoagulants
CPT/HCPCS: 36415; 80162; 93005; 99212

== ENCOUNTER 2024-11-29 10:18 | Emergency (ER) | payer OTHER, SELFPAY ==
--- OUTSIDE RECORDS SUMMARY | 2023-12-20 09:00 | XMS_ITS ---
Author Organization [facility] Address [address] [place] [address] Care Team Providers Care Ios Software Engineer Name Role Phone Viv Richardson Primary Care Provider Unavailab Darlene Garcia Unavailable [phone] Viv Richardson Unavailable Unavailable Genet Dillard Unavailable [phone] Medications Medication SIG (Take, Route, Frequency, Duration) [...] Active Encounters Encounter Location Date Provider Diagnosis [facility] [address] [place] [address] 12/20/2023 Genet Dillard Plan Of Treatment Next Appt Details Provider Name:Darlene graham, 03/01/2025 11:00:00 AM, [address] [facility], [address], [place], [address], Progress Notes * Sridhar MATTHEW MDOB: [birth year] (58 yo M)Acc No.[id number]:12/20/2023 Progress Note Patient: Sridhar LYLES Provider: Jose Dillard DPM :1965 A ge:58 Y S ex:Male Date:12/20/2023 Address:[address] [place] [address] [id number] Pcp:Viv Richardson Subjective: * Chief Complaints: * [...] 1 Generated for Bertrand hunt/Laura/Andrey on: 0 11/29/2024 08:40 AM EDT
--- OUTSIDE RECORDS SUMMARY | 2024-06-29 05:30 | XMS_ITS ---
Author Organization [facility] Address [address] [facility] [place] [address] Care Team Providers Care Tower Operator Name Role Phone Viv Richardson Primary Care Provider Unavailab Darlene Garcia Unavailable [phone] Viv Richardson Unavailable Unavailable Medications Medication SIG [...] Active Encounters Encounter Location Date Provider [facility] [address] [facility] [address] [place] [address] 06/29/2024 Darlene Silver Plan Of Treatment Next Appt Details Provider Name:Darlene graham, 03/01/2025 11:00:00 AM, [address] , [address], [place], [address], Progress Notes * Sridhar MATTHEW MDOB: [birth year] (58 yo M)Acc No.[id number]:06/29/2024 Progress Note Patient: Sridhar LYLES Provider: Noemi Silver DPM :1965 A ge:58 Y S ex:Male Date:06/29/2024 Address:[address] [place], [place] [id number] Pcp:Viv Richardson Subjective: * Chief Complaints: * [...] DPM Date: 0 06/29/2024 Generated for Bertrand hunt/Laura/Zayitting on: 0 11/29/2024 08:40 AM EDT
--- OUTSIDE RECORDS SUMMARY | 2024-11-27 09:15 | XMS_ITS ---
Author Organization [facility] Address [address] [facility] [place] [address] Care Team Providers Care Securities Research Analyst Name Role Phone Viv Richardson Primary Care Provider Unavailab Darlene Garcia Unavailable [phone] Viv Richardson Unavailable Unavailable Encounters Encounter Location Date Provider Diagnosis [address] [address] 11/27/2024 Darlene Silver Plan Of Treatment Next Appt Details Provider Name:Darlene graham, 03/01/2025 11:00:00 AM, [address] [place] [address], [phone], Progress Notes * Sridhar MATTHEW MDOB: [birth year] (58 yo M)Acc No.[id number]:11/27/2024 Progress Note Patient: Sridhar LYLES Provider: Noemi Silver DPM :1965 A ge:58 Y S ex:Male Date:11/27/2024 Address:[address] [id number] Pcp:Viv Richardson Subjective: * Chief Complaints: * [...] 0 11/27/2024 Generated for Bertrand hunt/Laura/Andrey on: 11/29/2024 08:40 AM EDT
--- NOTE | ~2024-11-29 | CT_ITS ---
EXAMINATION: CT HEAD WITHOUT CONTRAST CLINICAL INFORMATION: Fall COMPARISON: None available. TECHNIQUE: Contiguous axial imaging was performed from the skull base to vertex without intravenous administration of contrast. This CT examination was performed using dose optimization techniques as appropriate, variously including the following: *Automated exposure control *Adjustment of mA and/or kV according to patient size (this includes techniques or standardized protocols for targeted exams where dose is matched to indication/reason for exam; i.e. extremities or head) *Use of iterative reconstruction technique FINDINGS: Brain parenchyma: No shift of midline structures. No parenchymal hemorrhage, mass effect or evidence of acute territorial infarct. Ventricles/extra-axial spaces: No hydrocephalus. No extra-axial fluid collections. Extracranial structures: Minimal mucosal thickening in the right maxillary sinus. Remaining paranasal sinuses are essentially clear. Mastoid air cells are clear. Bilateral orbits is are unremarkable. CT/CT head/brain wo IV con IMPRESSION: No acute intracranial pathology. Electronically signed by: Lianne Dixon MD 11/29/2024 02:41 PM EDT
[2024-11-29 10:32] VITALS: BP 113/62; PULSE 83; RESP 16; TEMP 36.4; O2SAT 100; BMI 35.2
--- NOTE | 2024-11-29 10:33 | ED_ITS ---
HPI - Fall General Chief Complaint: Fall Stated Complaint: fall Time Seen by Provider: 11/29/24 14:14 Source: patient Mode of arrival: ambulatory Limitations: no limitations History of Present Illness ED Provider: Dr. Anton HPI Narrative: This is a 58-year-old male history of cardiomyopathy with AICD in placement, AFib on Eliquis, diabetes presented hospital today for altered mentation. Patient had a recent fall this past . This was a ground level fall. Patient was not evaluated by any medical professional however family noticed that patient appears to be more joyful and talkative. They suspect patient is altered. At baseline patient keeps to himself and seems more reserved. Patient was brought into the ER for further evaluation. Related Data Home Medications ?Medication ?Instructions ?Recorded ?Confirmed atorvastatin 40 mg tablet 40 mg PO BEDTIME 02/04/20 insulin aspart U-100 100 unit/mL 20 unit subcut TID 11/13/24 subcutaneous solution insulin glargine 100 unit/mL 45 unit subcut BEDTIME 05/01/24 subcutaneous solution metformin 1,000 mg tablet 1,000 mg PO BID 02/04/20 blood sugar diagnostic (OneTouch 07/02/21 12/16/22 Verio test strips) blood-glucose meter (OneTouch 07/02/21 12/16/22 Verio Flex Meter) losartan 100 1 tab PO DAILY 07/02/21 0825 mg-hydrochlorothiazide 25 mg tablet blood sugar diagnostic (FreeStyle 04/14/22 12/16/22 Lite Strips) insulin syringe-needle U-100 0.5 #10 ea 04/14/2212/16 mL 31 gauge x 5/16 (BD Insulin Syringe Ultra-Fine) lancets 28 gauge (FreeStyle 04/14/22 12/16/22 Lancets) dulaglutide 1.5 mg/0.5 mL mg subcut QWEEK 08/25/22 subcutaneous pen injector (Trulicity) fluoxetine 20 mg capsule 20 mg PO QAM 10/24/23 fluticasone furoate 200 inhalation 05/01/24 11/13/24 mcg/actuation blister powder for inhalation (Arnuity Ellipta) Previous Rx's ?Medication ?Instructions ?Recorded albuterol sulfate 90 mcg/actuation 2 puff inhalation R Q4H PRN 07/17/20 aerosol inhaler (Ventolin HFA) Shortness Of Breath #6. 7 grams blood-glucose meter (FreeStyle #1 ea 04/14/22 [place] Lite kit) blood sugar diagnostic (OneTouch #100 strips 06/21/22 Verio test strips) metoprolol succinate 200 mg 200 mg PO BID 30 days #60 tabs 03/17/23 tablet,extended release 24 hr digoxin 250 mcg (0.25 mg) tablet 250 mcg PO QAM #90 ta bs 03/15/24 diltiazem HCl 120 mg 120 mg PO QAM #90 caps 09/28 capsule,extended release 24 hr (Cartia XT) apixaban 5 mg tablet (Eliquis) 5 mg PO BID #180 tabs 0 10/01/24 Allergies Allergy/AdvReac Type Severity Reaction Status Date / Time No Known Allergies Allergy Mild NOT Verified 11/29/24 10:38 APPLICABLE Review of Systems 2 Review of Systems: Pertinent review of systems as mentioned in HPI. All other system otherwise negative. [facility] Past Medical History [facility] Narrative: Medical history as mentioned in HPI Medical History ICD (implantable cardioverter-defibrillator) discharge Sebaceous cyst Hx of cardiac pacemaker History of congestive heart failure Diabetes mellitus History of cardiomyopathy RACHELLE (obstructive sleep apnea) HTN (hypertension) Paroxysmal atrial fibrillation Morbid obesity ICD (implantable cardioverter-defibrillator) in place Surgical History Hx of cardiac cath Family History Family History Father CVD (cardiovascular disease) Mother Diabetes Heart disease Social History Social History Household Members: Spouse and Family Housing: Apartment Alcohol intake: current Alcohol intake frequency: former alcohol drinker Patient Tobacco Use Status: Never used Tobacco Advance Directives: No Advance Directives Information Provided: Yes service: No Current occupational status: disabled Current occupation: right handed Physical Exam 2 Exam: Exam: General: Pleasant, no distress, interacting appropriately Head: Normacephalic, atraumatic, no signs of hematoma or laceration ENT: oral mucosa moist, neck supple, no tracheal deviation Cardiovascular: regular rate, regular rhythm, no murmurs, rubbing, gallops Respiratory: CTAB, no wheeze, rales, rhonchi Gastrointestinal: Soft, non distended, non tender, non guarding Extremities: No limb pain or swelling, no calf tenderness Neurological: Awake and alert, no facial droop noted Skin: Warm and dry Psychiatric: Appropriate mood and thoughts Vital Signs: Vital Signs: Last Vital Signs Temp 97.6 F 11/29/24 10:32 Pulse 80 11/29/24 14:14 Resp 18 11/29/24 14:14 BP 134/88 11/29/24 14:14 Pulse Ox 100 11/29/24 14:14 O2 Del Method Room Air 11/29/24 14:14 BMI result Body Mass Index 35.2 Course Course Course Narrative: This is a Rapid Medical Examination (RME) performed by Ana George PA-C in triage. Full HPI, ROS, assessment and treatment plan per primary provider in the Main ED. Hx: 58 yo M hx of DM, HTN, cardiomyopathy, afib on eliquis, s/p ICD ere for eval s/p unwitnessed fall 1 week ago. here w/ [employer]/ step daughter. 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 PE/vitals: PERRLA. strength intact throughout. no facial droop or slurred speech. Plan: ct head, screening labs, UA, ekg Medications Administered Discontinued Medications Generic Name Dose Route Start Last Admin Trade Name Freq PRN Reason Stop Dose Admin Magnesium Sulfate 2 gm in 50 mls @ 50 mls/hr 11/29/24 14:16 11/29/24 16:57 Magnesium Sulfate/H2o IV 11/29/24 15:15 Infused ONCE ONE Infusion Sodium Chloride 500 mls @ 500 mls/hr 11/29/24 14:30 11/29/24 15:26 Ns IV 11/29/24 15:29 Infused .Q1H REMIGIO Infusion Medical Decision Making Medical Decision Making MDM Narrative: This is a 58-year-old male history of AFib on Eliquis cardiomyopathy with AICD in place station, diabetes, RACHELLE presented hospital today for evaluation of a fall and altered mentation. Do not see any signs of obvious trauma on the patient's scalp on exam. We will plan to obtain a CT head. To rule out intracranial bleed. Tenderness to obtain a UA to rule out UTI. Ammonia level will be obtained. TSH level will be obtained as well. Screening lab work will be obtained the patient. Patient appears to be in no distress at this time. Family is concerned that his current behavior is abnormal for him. Patient appears to be breathing well. Low suspicion of hypercarbia for altered mentation. Patient's CBC is unremarkable. There is some slight anemia at 13.0. Patient's chemistries unremarkable. He does have elevated glucose at 03:24. This has improved to 15. He does have some signs of hypomagnesemia at 1.5. 2 g IV magnesium repleted for the patient. Ammonia level was normal. Patient's UA did not show any signs of UTI. Patient's CT imaging did not show any signs of intracranial changes no signs of intracranial hematoma or bleed. At this time we will plan to discharge patient is he stable. Patient is not having any medical complaints at this time. Encouraged him to follow up with his primary care doctor. He agrees and understands this plan. Differential Diagnosis Differential Diagnoses: The differential diagnosis associated with the presentation includes Elevated ammonia level, hypothyroidism, intracranial bleed, UTI Lab Data MDM Lab Attestation statement: I reviewed the patient's lab results. 11/29/24 10:58 11/29/24 10:58 Labs: Lab Results 11/29/24 11/29/24 11/29/24 Range/Units 10:58 13:54 17:05 WBC 8.4 (4.8-10.8) X10*3/uL RBC 5.07 (4.60-5.80) X10*6/uL Hgb 13.0 L (14.0-18.0) g/dl Hct 39.3 L (42.0-52.0) % MCV 77.5 L (80.0-98.0) fL MCH 25.6 L (27.0-33.0) pg MCHC 33.1 (31.0-36.0) g/dl RDW 14.3 (11.0-16.0) % Plt Count 236 (160-400) X10*3/uL MPV 10.1 (9.4-12.4) fL Immature Gran % (Auto) 0.4 (0.0-0.4) % Neut % (Auto) 65.1 (45-73) % Lymph % (Auto) 21.9 (20-40) % [place] % (Auto) 10.5 (2-11) % Eos % (Auto) 1.7 (0-4) % Baso % (Auto) 0.4 (0-2) % Lymph # (Auto) 1.9 (1.2-4.9) X10*3/uL [place] # (Auto) 0.9 (0.1-1.2) X10*3/uL Eos # (Auto) 0.1 (0.0-0.4) X10*3/uL Baso # (Auto) 0.0 (0.0-0.2) X10*3/uL Abs Immat Gran (auto) 0.03 (0.00-0.03) X10*3/uL Absolute Neuts (auto) 5.5 (2.0-8.3) x10*3/uL Absolute Nucleated RBC 0.000 (0.0-0.012) X10*3/uL Nucleated RBC % (auto) 0.0 (0.0-0.2) /100WBC Sodium 137 (135-145) mmol/L Potassium 3.5 (3.3-5.1) mmol/L Chloride 102 (96-108) mmol/L Carbon Dioxide 24 (22-29) mmol/L Anion Gap 15 (12-20) BUN 11 (9-16) mg/dL Creatinine 0.80 (0.5-1.4) mg/dL Estim Creat Clear Calc 127.1 Estimated GFR > 60 POC Glucose 215 H (60-115) mg/dL Random Glucose 324 H (60-115) mg/dL Calcium 9.8 D (8.4-10.2) mg/dL Magnesium 1.5 L (1.6-2.6) mg/dL Total Bilirubin 0.7 (0.0-1.0) mg/dL AST 20 (5-37) U/L ALT 22 (0-40) U/L Alkaline Phosphatase 110 (39-117) U/L Ammonia 40 (13-55) umol/L Total Creatine Kinase 198 H (38-174) U/L Total Protein 6.8 (6.5-8.0) g/dL Albumin 4.1 (3.5-5.0) g/dL TSH 0.74 (0.32-4.0) uIU/mL Urine Color Yellow Urine Appearance Clear Urine pH 6.0 (5.0-9.0) Ur Specific [place] 1.020 (1.005-1.025) Urine Protein Negative (Neg-Trace) mg/dL Urine Glucose (UA) >=1000 H (Negative) mg/dL Urine Ketones Negative (Negative) mg/dL Urine Blood Negative (Negative) Urine Nitrite Negative (Negative) Ur Leukocyte Esterase Negative (Negative) Urine RBC 0-2 (0-2) /HPF Urine WBC 0-5 (0-5) /HPF Ur Squamous Epith Cells 0-2 (0-2) /HPF Urine Bacteria None Seen (None Seen) Hyaline Casts 0-2 (0-2) /LPF Independent Interpretation I performed an independent interpretation of an: EKG and CT Scan Radiology Impression Discussion of test interpretation with radiology: I have reviewed the radiologist's reading. Discharge Plan Discharge Clinical Impression: Fall Qualifiers: Encounter type: initial encounter Qualified Code(s): W19.XXXA - Unspecified fall, initial encounter Patient Disposition: Home, Self-Care Additional Instructions: CT head is negative for bleed or intracranial hematoma. Labwork did not show any cause of his altered mentation. He looks stable to me. I recommend watching him and following up with his primary care doctor. Urinalysis did not show any signs of UTI. Prescriptions: No Action (DME) OneTouch Verio test strips Strip See Rx Instructions .ROUTE .COMPLEX Qty: 100 1RF Dose Instruction: TEST BLOOD SUGAR 4 - 5 TIMES DAILY DIRECTED Rx Instructions: TEST BLOOD SUGAR 4 - 5 TIMES DAILY DIRECTED metoprolol succinate 200 mg tablet extended release 24 hr 200 mg PO BID 30 Days Qty: 60 11RF digoxin 250 mcg (0.25 mg) tablet 250 mcg PO QAM Qty: 90 3RF diltiazem HCl [Cartia XT] 120 mg capsule,extended release 24hr 120 mg PO QAM Qty: 90 3RF Eliquis 5 mg tablet 5 mg PO BID Qty: 180 3RF albuterol sulfate [Ventolin HFA] 90 mcg/actuation Hfa Aerosol Inhaler 2 puff inhalation RQ4H PRN (Reason: Shortness Of Breath) Qty: 6.7 0RF fluoxetine 20 mg capsule 20 mg PO QAM metformin 1,000 mg tablet 1,000 mg PO BID atorvastatin 40 mg tablet 40 mg PO BEDTIME insulin glargine 100 unit/mL solution 45 unit subcut BEDTIME insulin aspart U-100 100 unit/mL solution 20 unit subcut TID losartan-hydrochlorothiazide 100-25 mg tablet 1 tab PO DAILY (DME) blood-glucose meter [OneTouch Verio Flex meter] Misc See Rx Instructions .Route Rx Instructions: As directed test blood sugar 3 times a day (DME) OneTouch Verio test strips Strip See Rx Instructions .Route Rx Instructions: As directed test blood sugar 3 times a day (DME) insulin syringe-needle U-100 [BD Insulin Syringe Ultra-Fine] 0.5 mL 31 gauge x 5/16 syringe See Rx Instructions .ROUTE .MEDSUPPLY Qty: 10 Rx Instructions: As directed 4 times a day (DME) FreeStyle Lite Strips Strip See Rx Instructions .Route Rx Instructions: As directed 4 times a day (DME) lancets [FreeStyle Lancets] 28 gauge misc See Rx Instructions .Route Rx Instructions: As directed (DME) blood-glucose meter [FreeStyle [place] Lite] Kit See Rx Instructions .Route Qty: 1 0RF Rx Instructions: As directed checks 4x/day Trulicity 1.5 mg/0.5 mL pen injector subcut QWEEK Arnuity Ellipta 200 mcg/actuation blister with device inhalation Print Language: Macedonian
--- NOTE | 2024-11-29 10:38 | ECG_ITS ---
Test Reason : AMS Blood Pressure : */* mmHG Vent. Rate : 96 BPM Atrial Rate : * BPM P-R Int : * ms QRS Dur : 84 ms QT Int : 362 ms P-R-T Axes : * -8 4 degrees QTcB Int : 457 ms Atrial fibrillation Abnormal ECG When compared with ECG of 04-Feb-2021 13:45, Atrial fibrillation has replaced Sinus rhythm Vent. rate has increased by 35 bpm Nonspecific T wave abnormality now evident in Inferior leads Referred By: Ana George Electronically Signed By: KERI HARRISON MD
[2024-11-29 11:02] LABS: MANUAL DIFF FLAG NO
[2024-11-29 11:05] LABS: Hematocrit 39.3 % (42.0-52.0); Hemoglobin 13.0 g/dl (14.0-18.0); Imm Gran Abs Auto 0.03 X10*3/uL (0.00-0.03); Imm Gran Pct Auto 0.4 % (0.0-0.4); Lymphocytes Absolute Auto 1.9 X10*3/uL (1.2-4.9); Mean Corpuscular HGB Conc 33.1 g/dl (31.0-36.0); Mean Corpuscular Hemoglobin 25.6 pg (27.0-33.0); Mean Corpuscular Volume 77.5 fL (80.0-98.0); NRBC Abs Auto 0.000 X10*3/uL (0.0-0.012); NRBC Pct Auto 0.0 /100WBC (0.0-0.2); Platelet Count 236 X10*3/uL (160-400); Red Blood Count 5.07 X10*6/uL (4.60-5.80); White Blood Count 8.4 X10*3/uL (4.8-10.8)
[2024-11-29 11:07] LABS: Appearance Urine Clear; Glucose Urine UA >=1000 mg/dL (Negative); PH 6.0 (5.0-9.0); Specific Gravity - Urine 1.020 (1.005-1.025); UMIC TRIGGER UACC YES
[2024-11-29 11:26] LABS: Alanine Aminotransferase 22 U/L (0-40); Albumin Level 4.1 g/dL (3.5-5.0); Alkaline Phosphatase 110 U/L (39-117); Anion Gap 15 (12-20); Aspartate Amino Transferase 20 U/L (5-37); Blood Urea Nitrogen 11 mg/dL (9-16); Calcium 9.8 mg/dL (8.4-10.2); Carbon Dioxide 24 mmol/L (22-29); Chloride 102 mmol/L (96-108); Creatinine Clr Calc Pharmacy 127.1; Estimated Glomerular Filt Rate > 60; Magnesium 1.5 mg/dL (1.6-2.6); Potassium 3.5 mmol/L (3.3-5.1); Sodium 137 mmol/L (135-145); Total Protein 6.8 g/dL (6.5-8.0)
[2024-11-29 13:58] LABS: Glucose, Whole Blood 215 mg/dL (60-115)
[2024-11-29 14:14] VITALS: BP 134/88; PULSE 80; RESP 18; O2SAT 100
--- NOTE | 2024-11-29 14:20 | PC.NURSE ---
Pt to ED 20 from triage, ambulates with steady gait and cane. A/O x 3, denies any pain at this time. Placed on bedside monitor. #22 to left hand, IVF and medications per MAR. Labs pending.
[2024-11-29] MEDS: Magnesium Sulfate/H2O 2 GM/50 ML PIGGYBACK IV (14:37)
[2024-11-29 17:17] LABS: Ammonia 40 umol/L (13-55)
[2024-11-29 17:28] LABS: Thyroid Stimulating Hormone 0.74 uIU/mL (0.32-4.0)
--- OUTSIDE RECORDS SUMMARY | 2024-11-29 18:10 | XMS_ITS | Patient Health Record ---
Author Organization [facility] Address [address] [facility] [place] [address] Care Team Providers Care Cartographic Drafter Name Role Phone Viv Richardson Primary Care Provider Unavailab Darlene Garcia Unavailable [phone] Viv Richardson Unavailable Unavailable Genet Dillard Unavailable [phone] Allergies Allergen (clinical drug ingredient) Drug/Non Drug [...] Problem Acquired hammer toe of right foot (861362768267082 5) Other hammer toe(s) (acquired), right foot (M20.41) Active confirmed Problem Acquired hammer toe of left foot (627832558494693 3) Other hammer toe(s) (acquired), left foot (M20.42) Active confirmed Problem Type II diabetes mellitus without complication (031784751) Type 2 diabetes mellitus without complication (E11.9) Active confirmed Problem Type I diabetes mellitus without complication (591420131) Type 1 diabetes mellitus without complication (E10.9) Active confirmed Vital Signs Heart Rate 88 /min 08/24/2024 Blood pressure diastolic 67 mm Hg 08/24/2024 Height 5ft 8in in 08/24/2024 Blood pressure systolic 102 mm Hg 08/24/2024 Weight 260 lbs 08/24/2024 BMI 39.53 kg/m2 08/24/2024 Procedures Procedure Date Ordered Date Performed Result Body Sit e 24211-LTRNIXC NAIL, 6 OR MORE 08/24/2024 N/A Encounters Encounter Location Date Provider [facility] [address] 08/24/2024 Darlene Silver Pain in right toe(s) M79.674 ; Tinea unguium B35.1 ; Pain in left toe(s) M79.675 ; Type 2 diabetes mellitus without complication E11.9 and Xerosis of skin L85.[address] [facility] [address] 06/29/2024 Genet Dillard [facility] [place] [address] [address] 08/24/2024 Darlene Silver [facility] [address] [address] 11/22/2024 Darlenealma Silver Assessments Encounter Date Diagnosis (ICD Code) [...] Treatment Pending Test Test Name Order Date [id number]-[id number] NAIL, 6 OR MORE 08/24/2024 Next Appt Details Provider Name:Darlene Major gladys, 03/01/2025 11:00:00 AM, [address] [facility], [place] [address], [place], [address], Insurance Providers Payer Name Payer Address Payer Phone Subscriber Number Group Number Insured Name Patient Relationship to Insured Coverage Start Date Coverage End Date [facility] [employer] S[employer] Claims [address] [place] [address] [id number] Sridhar Krishnamurthy Self - patient is the insured Medical (General) History Medical History History ICD Code Arthritis asthma Depression Diabetic Headaches/Migraines High blood pressure Chicken pox Pacemaker
--- OUTSIDE RECORDS SUMMARY | 2024-11-29 18:10 | XMS_ITS | Clinical Summary ---
Author Organization [facility] Address [address] [facility] [address] [place] [address] Phone Care Team Providers Care Social Welfare Research Worker Name Role Phone Viv Richardson MD Primary [...] history exists Adult Td,Tdap Booster 11/21/2022 11/21/2012 INFLUENZA VACCINE (#1) 2024 COVID-19 VACCINE ( season) 2024 HEPATITIS A VACCINES Aged Out No long [...] topic Medical Devices Not on file Insurance [facility] C[facility] MEDICARE REPLACEMENT [facility] MEDICARE REPLACEMENT [facility] MEDICARE REPLACEMENT [facility] C[facility] MEDICARE REPLACEMENT [facility] MEDICARE REPLACEMENT [facility] MEDICARE REPLACEMENT Care Teams Social Welfare Research Worker Relationship Specialty Start Date End Date Viv Richardson MD [address] [place] [address] [place] [address] PCP - General Internal Medicine 12/15/22 Additional Source Comments The information contained in this document represents components of the legal health record. It is not the complete legal health record.[facility]
[2024-11-29 18:47] VITALS: BP 140/80; PULSE 77; RESP 12; TEMP 36.6; O2SAT 100
[2024-11-29 18:58] VITALS: BP 140/80; PULSE 77; RESP 12; TEMP 36.6; O2SAT 100
== END 2024-11-29 18:59 | disposition home or self-care (01) ==
PROVIDERS: Physician Assistant Medical; Emergency Provider Student in an Organized Health Care Education/Training Program; PCP Internal Medicine
DX: R41.82 Altered mental status, unspecified (principal); E83.42 Hypomagnesemia; D64.9 Anemia, unspecified; I48.0 Paroxysmal atrial fibrillation; I11.0 Hypertensive heart disease with heart failure; I50.9 Heart failure, unspecified; W19.XXXA Unspecified fall, initial encounter; Y93.89 Activity, other specified; Y92.89 Other specified places as the place of occurrence of the external cause; Y99.8 Other external cause status; Z79.01 Long term (current) use of anticoagulants; Z79.899 Other long term (current) drug therapy
CPT/HCPCS: 36415; 70450; 80053; 81001; 81003; 82140; 82550; 82947; 83735; 84443; 85025; 93005; 96361; 96365; 99284; J3475

== ENCOUNTER → 2024-11-29 10:38 | Outpatient (BNV) | payer OTHER, SELFPAY | PROVIDERS: Emergency Provider Student in an Organized Health Care Education/Training Program; PCP Internal Medicine; Visit Provider Internal Medicine Cardiovascular Disease | DX: I48.91 Unspecified atrial fibrillation (principal) | CPT/HCPCS: 93010 ==

== ENCOUNTER → 2024-11-29 12:40 | Outpatient (BNV) | payer OTHER, SELFPAY | PROVIDERS: Emergency Provider Student in an Organized Health Care Education/Training Program; PCP Internal Medicine; Visit Provider Radiology Body Imaging | DX: S09.90XA Unspecified injury of head, initial encounter (principal) | CPT/HCPCS: 70450 ==

== ENCOUNTER → 2024-12-25 23:59 | Outpatient (BNV) | payer OTHER, SELFPAY ==
--- NOTE | 2024-12-26 16:48 | A.OFFVIS_ITS ---
Intake Visit Reasons: Remote ICD check- [facility] Allergies No Known Allergies Allergy (Mild, Verified 11/29/24 10:38) NOT APPLICABLE PFSH Medical History ICD (implantable cardioverter-defibrillator) discharge Sebaceous cyst Hx of cardiac pacemaker History of congestive heart failure Diabetes mellitus History of cardiomyopathy RACHELLE (obstructive sleep apnea) HTN (hypertension) Paroxysmal atrial fibrillation Morbid obesity ICD (implantable cardioverter-defibrillator) in place Surgical History Hx of cardiac cath Family History Father CVD (cardiovascular disease) Mother Diabetes Heart disease Social History Household Members: Spouse and Family Housing: Apartment Alcohol intake: current Alcohol intake frequency: former alcohol drinker Patient Tobacco Use Status: Never used Tobacco Advance Directives: No Advance Directives Information Provided: Yes service: No Current occupational status: disabled Current occupation: right handed Office Procedures Cardiac Device Check Cardiac Device Check Details: Remote ICD report generated 12/25/2024. ICD reached ERNESTO on 12/24/2024. Patient is scheduled to undergo pulse generator change and possible upgrade to a dual- chamber device 11468-Eoijjb Cardiac Interrogation, implant defibrillator w/interim Procedure code (CPT) selection complete Assessment & Plan Assessment & Plan (1) ICD (implantable cardioverter-defibrillator) in place: Comment: implanted in September 2015 for primary prevention. [place] Code(s): Z95.810 - Presence of automatic (implantable) cardiac defibrillator Category: Medical Plan: See above Coding Level of Care Code Procedure Only Diagnoses ICD (implantable cardioverter-defibrillator) in place Z95.810 CPT Codes Cardiac Device Check - Cardiac Device 13: 82592-Tkuecs Cardiac Interrogation, implant defibrillator w/interim ([id number])
== END ==
PROVIDERS: PCP Internal Medicine; Visit Provider Internal Medicine Cardiovascular Disease
DX: Z45.02 Encounter for adjustment and management of automatic implantable cardiac defibrillator (principal)
CPT/HCPCS: 93295

== ENCOUNTER 2025-01-03 11:07 | Outpatient (REF) | payer OTHER, SELFPAY ==
--- OUTSIDE RECORDS SUMMARY | 2023-12-20 09:00 | XMS_ITS ---
Author Organization [facility] Address [address] [place] [address] Care Team Providers Care Center Medical And Lab Director Name Role Phone Viv Richardson Primary Care Provider Unavailab Darlene Garcia Unavailable [phone] Viv Richardson Unavailable Unavailable Genet Dillard Unavailable [phone] Medications Medication SIG (Take, Route, Frequency, Duration) [...] Active Encounters Encounter Location Date Provider Diagnosis [facility] [address] [place] [address] 12/20/2023 Genet Dillard Plan Of Treatment Next Appt Details Provider Name:Darlene graham, 03/01/2025 11:00:00 AM, [address] [facility], [address], [place], [address], Progress Notes * Sridhar MATTHEW MDOB: [birth year] (59 yo M)Acc No.[id number]:12/20/2023 Progress Note Patient: Sridhar LYLES Provider: Jose Dillard DPM :1965 A ge:58 Y S ex:Male Date:12/20/2023 Address:[address] [place] [address] [id number] Pcp:Viv Richardson Subjective: * Chief Complaints: * [...] 1 Generated for Bertrand hunt/Laura/Andrey on: 1 02:17 PM EDT
--- OUTSIDE RECORDS SUMMARY | 2024-06-29 05:30 | XMS_ITS ---
Author Organization [facility] Address [address] [facility] [place] [address] Care Team Providers Care Hospital Educator Name Role Phone Viv Richardson Primary Care Provider Unavailab Darlene Garcia Unavailable [phone] Viv Richardson Unavailable Unavailable Medications Medication SIG [...] Active Encounters Encounter Location Date [facility] [address] [facility] [address] [place] [address] 06/29/2024 Darlene Silver Plan Of Treatment Next Appt Details Provider Name:Darlene graham, 03/01/2025 11:00:00 AM, [address] , [address], [place], [address], Progress Notes * Sridhar MATTHEW MDOB: [birth year] (59 yo M)Acc No.[id number]:06/29/2024 Progress Note Patient: Sridhar LYLES Provider: Noemi Silver DPM :1965 A ge:58 Y S ex:Male Date:06/29/2024 Address:[address] [place], [place] [id number] Pcp:Viv Richardson Subjective: * Chief Complaints: * [...] 06/29/2024 Generated for Bertrand hunt/Laura/Andrey on: 1 02:16 PM EDT
--- OUTSIDE RECORDS SUMMARY | 2024-11-27 09:15 | XMS_ITS ---
Author Organization [facility] Address [address] [place] [address] Care Team Providers Care Powerhouse Attendant Name Role Phone Viv Richardson Primary Care Provider Unavailab Darlene Garcia Unavailable [phone] Viv Richardson Unavailable Unavailable Encounters Encounter Location Date Provider Diagnosis [address] [phone] 11/27/2024 Darlene Silver Plan Of Treatment Next Appt Details Provider Name:Darlene graham, 03/01/2025 11:00:00 AM, [address] [place] [address], [phone], Progress Notes * Sridhar MATTHEW MDOB: [birth year] (59 yo M)Acc No.[id number]:11/27/2024 Progress Note Patient: Sridhar LYLES Provider: Noemi Silver DPM :1965 A ge:58 Y S ex:Male Date:11/27/2024 Address:[address] [id number] Pcp:Viv Richardson Subjective: * Chief Complaints: * [...] 0 11/27/2024 Generated for Bertrand hunt/Laura/Andrey on: 02:16 PM EDT
--- NOTE | ~2025-01-03 | XR_ITS ---
EXAMINATION: XR KNEE, LEFT CLINICAL INFORMATION: M25.569 - Pain in unspecified knee COMPARISON: X-ray 06/15/2024 TECHNIQUE: Three views of the left knee. FINDINGS: No acute fracture, dislocation or suspicious bony lesion. Severe medial compartment arthritis. Moderate lateral and patellofemoral arthritis. No effusion. Multiple loose bodies in the suprapatellar region. XR/XR knee LT 3V IMPRESSION: Tricompartment arthritis. Multiple loose bodies. Electronically signed by: Cayetano Erickson MD 01/03/2025 11:52 AM EDT
--- OUTSIDE RECORDS SUMMARY | 2025-01-03 14:16 | XMS_ITS | Clinical Summary ---
Author Organization [facility] Address [address] [facility] [address] [place] [address] Phone Care Team Providers Care Access Lead Name Role Phone Viv Richardson MD Primary [...] FOBT 12/08/2011 SIGMOIDOSCOPY 12/08/2011 VIRTUAL COLONOSCOPY 12/08/2011 RSV VACCINE (1 - Risk 50-74 years 1-dose series) 2016 ZOSTER VACCINES (1 of 2) 2016 PNEUMOCOCCAL VACCINES (50+ years) (2 of 2 - PCV) 03/24/2022 03/24/2021, 01/23/2021, 02/17/2018, Additional history exists Adult Td,Tdap Booster 11/21/2022 11/21/2012 INFLUENZA VACCINE (#1) 2024 COVID-19 VACCINE ( - season) 2024 HEPATITIS A VACCINES Aged Out [...] topic Medical Devices Not on file Insurance [facility] MEDICARE REPLACEMENT [facility] MEDICARE REPLACEMENT [facility] MEDICARE REPLACEMENT [facility] MEDICARE REPLACEMENT [facility] MEDICARE REPLACEMENT [facility] MEDICARE REPLACEMENT Care Teams Access Lead Relationship Specialty Start Date End Date Viv Richardson MD [address] [place] [address] Dr [place], [place] [address] PCP - General Internal Medicine 12/15/22 Additional Source Comments The information contained in this document represents components of the legal health record. It is not the complete legal health record.[facility]
--- OUTSIDE RECORDS SUMMARY | 2025-01-03 14:17 | XMS_ITS | Clinical Summary ---
Author Organization [employer] Address [address] [facility] 7t [place] [address] Care Team Providers Care C S S Representative Name Role Phone Unavailable Primary Care Provider [...] Verio test strip 3 Active HYDROcodone-ac etaminophen ([place]) 5-325 MG tablet TAKE 1 TABLET BY [...] DAILY 3 Active Lancets (OneTouch Delica Plus [id number]) misc TEST BLOOD SUGAR THREE TIMES DAILY [...] Encounters Date Type Department Care Team Description 11/29/2024 Telephone [facility] MEDICINE [address] [place] [phone] Nehal Colon, PharmD from Last 3 Months Immunizations Immunization Administration Dates Next Due Hep [...] Screening 09/15/2023 09/14/2022 Influenza Vaccine (#1) 2024 , 01/06/2023, 02/03/2022, Additional history exists Dental X-Ray: [...] Relevant to Health Maintenance Insurance [facility]ENTAL - [facility] < [address] [facility]
--- OUTSIDE RECORDS SUMMARY | 2025-01-03 14:17 | XMS_ITS | Encounter Summary ---
Author Organization [employer] Address [address] 7[address] [place] [address] Care Team Providers Care Stogy Roller Name Role Phone Unavailable Primary Care Provider Unavailabl e Encounter Details Date Type Department Care Team (Late st Contact Info) Description 11/29/2024 Telephone [facility] MEDICINE [address] [place], [place] [phone] Nehal Colon, PharmD [address] [place] [address] Social History Tobacco Use Types Packs/Day Years Used Date Smoking Tobacco: Never Passive Smoke Exposure: Never Smokeless Tobacco: Never Sex and Gender Information Value Date Recorded Sex Assigned at Male 01/18/2022 10:15 AM EDT Legal Sex Male 10:15 AM EDT Gender Identity Male 01/18/2022 10:15 AM EDT Sexual Orientation Straight 01/18/2022 10 :15 AM EDT documented as of this encounter Plan of Treatment Not on file documented as of this encounter Visit Diagnoses Not on filedocumented in this encounter
--- OUTSIDE RECORDS SUMMARY | 2025-01-03 14:17 | XMS_ITS | Patient Health Record ---
Author Organization [facility] Address [address] [facility] [place] [address] Care Team Providers Care Cloth Checker Name Role Phone Viv Richardson Primary Care Provider Unavailab Darlene Garcia Unavailable [phone] Viv Richardson Unavailable Unavailable Genet Dillard Unavailable [phone] Allergies Allergen (clinical drug ingredient) Drug/Non Drug [...] Problem Acquired hammer toe of right foot (053423865008628 5) Other hammer toe(s) (acquired), right foot (M20.41) Active confirmed Problem Acquired hammer toe of left foot (031248288716349 3) Other hammer toe(s) (acquired), left foot (M20.42) Active confirmed Problem Type II diabetes mellitus without complication (988755888) Type 2 diabetes mellitus without complication (E11.9) Active confirmed Problem Type I diabetes mellitus without complication (285969296) Type 1 diabetes mellitus without complication (E10.9) Active confirmed Vital Signs Heart Rate 88 /min 08/24/2024 Blood pressure diastolic 67 mm Hg 08/24/2024 Height 5ft 8in in 08/24/2024 Blood pressure systolic 102 mm Hg 08/24/2024 Weight 260 lbs 08/24/2024 BMI 39.53 kg/m2 08/24/2024 Procedures Procedure Date Ordered Date Performed Result Body Sit e 76744-QAGFCZJ NAIL, 6 OR MORE 08/24/2024 N/A Encounters Encounter Location Date [facility] [address] 08/24/2024 Darlene Silver Pain in right toe(s) M79.674 ; Tinea unguium B35.1 ; Pain in left toe(s) M79.675 ; Type 2 diabetes mellitus without complication E11.9 and Xerosis of skin L85.[address] [facility] [address] 06/29/2024 Genet Dillard [facility] [place] [address] [address] 08/24/2024 Darlene Silver [facility] [place] [address] [address] 11/22/2024 Darlenealma Silver Assessments Encounter Date Diagnosis [...] Treatment Pending Test Test Name Order Date [id number] NAIL, 6 OR MORE 08/24/2024 Next Appt Details Provider Name:Darlene Major gladys, 03/01/2025 11:00:00 AM, [address] [place] [address], [place], [address], Insurance Providers Payer Name Payer Address Payer Phone Subscriber Number Group Number Insured Name Patient Relationship to Insured Coverage Start Date Coverage End Date [facility] [employer] Claims [address] [place] [address] [id number] Sridhar Krishnamurthy Self - patient is the insured Medical (General) History Medical History History ICD Code Arthritis asthma Depression Diabetic Headaches/Migraines High blood pressure Chicken pox Pacemaker
== END 2025-01-03 11:08 | disposition home or self-care (01) ==
LOC: HO.XRAY 11:07
PROVIDERS: PCP Internal Medicine; Visit Provider Internal Medicine
DX: M25.462 Effusion, left knee (principal)
CPT/HCPCS: 73562

== ENCOUNTER → 2025-01-03 11:13 | Outpatient (BNV) | payer OTHER, SELFPAY | PROVIDERS: PCP Internal Medicine; Visit Provider Radiology Diagnostic Ultrasound | DX: M17.12 Unilateral primary osteoarthritis, left knee (principal); M23.42 Loose body in knee, left knee | CPT/HCPCS: 73562 ==

== ENCOUNTER → 2025-01-03 23:59 | Outpatient (BNV) | payer OTHER, SELFPAY ==
--- NOTE | 2025-01-08 17:20 | MHC.OFFVIS ---
Intake Visit Reasons: Remote ICD check- [facility] Allergies No Known Allergies Allergy (Mild, Verified 11/29/24 10:38) NOT APPLICABLE PFSH Medical History ICD (implantable cardioverter-defibrillator) discharge Sebaceous cyst Hx of cardiac pacemaker History of congestive heart failure Diabetes mellitus History of cardiomyopathy RACHELLE (obstructive sleep apnea) HTN (hypertension) Paroxysmal atrial fibrillation Morbid obesity ICD (implantable cardioverter-defibrillator) in place Surgical History Hx of cardiac cath Family History Father CVD (cardiovascular disease) Mother Diabetes Heart disease Social History Household Members: Spouse and Family Housing: Apartment Alcohol intake: current Alcohol intake frequency: former alcohol drinker Patient Tobacco Use Status: Never used Tobacco service: No Current occupational status: disabled Current occupation: right handed Office Procedures Cardiac Device Check Cardiac Device Check Details: Remote ICD report generated 01/03/2025. Battery has reached ERNESTO. Will reach out to patient to scheduled replacement. No arrhythmias detected. ICD function is adequate 13273-Pagipy Cardiac Interrogation, implant defibrillator w/interim Procedure code (CPT) selection complete Assessment & Plan Assessment & Plan (1) ICD (implantable cardioverter-defibrillator) in place: Comment: implanted in September 2015 for primary prevention. [place] Code(s): Z95.810 - Presence of automatic (implantable) cardiac defibrillator Category: Medical Plan: See above Coding Level of Care Code Procedure Only Diagnoses ICD (implantable cardioverter-defibrillator) in place Z95.810 CPT Codes Cardiac Device Check - Cardiac Device 13: 66567-Qsvvzj Cardiac Interrogation, implant defibrillator w/interim ([id number])
== END ==
PROVIDERS: PCP Internal Medicine; Visit Provider Internal Medicine Cardiovascular Disease
DX: Z45.02 Encounter for adjustment and management of automatic implantable cardiac defibrillator (principal)
CPT/HCPCS: 93295

== ENCOUNTER 2025-02-07 09:05 | Outpatient (REF) | payer OTHER, SELFPAY ==
--- OUTSIDE RECORDS SUMMARY | 2023-12-20 08:00 | XMS_ITS ---
Author Organization [facility] Address [address] [place] [address] Care Team Providers Care Hide Tanner Name Role Phone Viv Richardson Primary Care Provider Unavailab Darlene Garcia Unavailable [phone] Viv Richardson Unavailable Unavailable Genet Dillard Unavailable [phone] Medications Medication SIG (Take, Route, Frequency, Duration) Notes Start Date End Date Status Eliquis 5 MG Oral; Duration: 30 Active FLUoxetine HCl 20 MG Oral; Duration: 30 Active clonazePAM 1 MG Oral; Duration: 30 Active Losartan Potassium-HCTZ 100-25 MG TAKE 1 TABLET BY MOUTH EVERY MORNING Oral; Duration: 90 Active Lantus 100 UNIT/ML Subcutaneous; Durati on: 84 Active Atorvastatin Calcium 40 MG TAKE 1 TABLET BY MOUTH EVERY EVENING Oral; Duration: 90 Active Digoxin Active Extra Depth Orthopedic Shoes (1 Pair) with Customized Heat Molded Multidensity Innersoles (3 Pair) as directed Dx: NIDDM (E11.9), Hammertoe Foot Deformity (M20.41,M20.42), Preulcerative Skin Lesion(s) (L85.1) 09/06/2023 Active metFORMIN HCl Active Trulicity 3 MG/0.5ML Subcutaneous; Durat ion: 28 Not-Taking Metoprolol Succinate ER 200 MG TAKE 1 TABLET BY MOUTH TWICE DAILY IN THE MORNING AND IN THE EVENING Oral; Duration: 30 Active traZODone HCl 100 MG Oral; Duration: 30 Active Encounters Encounter Location Date Provider Diagnosis [facility] [address] [place] [address] 12/20/2023 Genet Dillard Plan Of Treatment Next Appt Details Provider Name:Darlene graham, 03/01/2025 11:00:00 AM, [address] [facility], [address], [place], [address], Progress Notes * Sridhar MATTHEW MDOB: [birth year] (59 yo M)Acc No.[id number]:12/20/2023 Progress Note Patient: Sridhar LYLES Provider: Jose Dillard DPM :1965 A ge:58 Y S ex:Male Date:12/20/2023 Address:[address] [place] [address] [id number] Pcp:Viv Richardson Subjective: * Chief Complaints: * * Medical History: * Medications: T aking Digoxin , Taking metFORMIN HCl , Taking Atorvastatin Calcium 40 MG Tablet TAKE 1 TABLET BY MOUTH EVERY EVENING Oral , Taking clonazePAM 1 MG Tablet Oral , Taking Eliquis 5 MG Tablet Oral , Taking FLUoxetine HCl 20 MG Capsule Oral , Taking Lantus 100 UNIT/ML Solution Subcutaneous , Taking Losartan Potassium-HCTZ 100-25 MG Tablet TAKE 1 TABLET BY MOUTH EVERY MORNING Oral , Taking Metoprolol Succinate ER 200 MG Tablet Extended Release 24 Hour TAKE 1 TABLET BY MOUTH TWICE DAILY IN THE MORNING AND IN THE EVENING Oral , Taking traZODone HCl 100 MG Tablet Oral , Taking Extra Depth Orthopedic Shoes (1 Pair) with Customized Heat Molded Multidensity Innersoles (3 Pair) as directed Dx: NIDDM (E11.9), Hammertoe Foot Deformity (M20.41,M20.42), Preulcerative Skin Lesion(s) (L85.1) , Not-Taking/PRN Trulicity 3 MG/0.5ML Solution Pen-injector Subcutaneous Objective: * Vitals: Assessment: Plan: * Treatment: * Images: * The named appointment provid er may or may not be the originator of this progress note, and it is not deemed complete until electronically signed by the appointment provider. Sign off status: Pending * Provider: Jose Dillard DPM Date: 1 Generated for Bertrand hunt/Laura/Andrey on: 1 04/10/2024 09:24 AM EST
--- OUTSIDE RECORDS SUMMARY | 2024-06-29 04:30 | XMS_ITS ---
Author Organization [facility] Address [address] [facility] [address] [facility] [place] [address] Care Team Providers Care Charge Machine Operator Name Role Phone Viv Richardson Primary Care Provider Unavailab Darlene Garcia Unavailable [phone] Viv Richardson Unavailable Unavailable Medications Medication SIG (Take, Route, Frequency, Duration) Notes Start Date End Date Status Trulicity 3 MG/0.5ML Subcutaneous; Durat ion: 28 Not-Taking Extra Depth Orthopedic Shoes (1 Pair) with Customized Heat Molded Multidensity Innersoles (3 Pair) as directed Dx: NIDDM (E11.9), Hammertoe Foot Deformity (M20.41,M20.42), Preulcerative Skin Lesion(s) (L85.1) 09/06/2023 Active Metoprolol Succinate ER 200 MG TAKE 1 TABLET BY MOUTH TWICE DAILY IN THE MORNING AND IN THE EVENING Oral; Duration: 30 Active traZODone HCl 100 MG Oral; Duration: 30 Active Losartan Potassium-HCTZ 100-25 MG TAKE 1 TABLET BY MOUTH EVERY MORNING Oral; Duration: 90 Active Eliquis 5 MG Oral; Duration: 30 Active FLUoxetine HCl 20 MG Oral; Duration: 30 Active Atorvastatin Calcium 40 MG TAKE 1 TABLET BY MOUTH EVERY EVENING Oral; Duration: 90 Active clonazePAM 1 MG Oral; Duration: 30 Active Lantus 100 UNIT/ML Subcutaneous; Durati on: 84 Active metFORMIN HCl Active Digoxin Active Encounters Encounter [facility] Date [facility] [address] [place] [address] 06/29/2024 Darlene Silver Plan Of Treatment Next Appt Details Provider Name:Darlene graham, 03/01/2025 11:00:00 AM, [address], [place], [address], Progress Notes * Sridhar MATTHEW MDOB: [birth year] (59 yo M)Acc No.[id number]:06/29/2024 Progress Note Patient: Sridhar LYLES Provider: Noemi Silver DPM :1965 A ge:58 Y S ex:Male Date:06/29/2024 Address:[address] [place], [place] [id number] Pcp:Viv Richardson Subjective: * Chief Complaints: * [...] provider. Sign off status: Pending * Provider: Noemi Silver DPM Date: 0 06/29/2024 Generated for Bertrand hunt/Laura/Andrey on: 1 04/10/2024 09:23 AM EST
--- OUTSIDE RECORDS SUMMARY | 2024-11-27 08:15 | XMS_ITS ---
Author Organization [facility] Address [address] [place] [address] Care Team Providers Care Rotary Engine Assembler Name Role Phone Viv Richardson Primary Care Provider Unavailab Darlene Garcia Unavailable [phone] Viv Richardson Unavailable Unavailable Encounters Encounter Location Date Provider Diagnosis [address] [address] 11/27/2024 Darlene Silver Plan Of Treatment Next Appt Details Provider Name:Darlene graham, 03/01/2025 11:00:00 AM, [address] [place] [address], [phone], Progress Notes * Sridhar MATTHEW MDOB: [birth year] (59 yo M)Acc No.[id number]:11/27/2024 Progress Note Patient: Sridhar LYLES Provider: Noemi Silver DPM :1965 A ge:58 Y S ex:Male Date:11/27/2024 Address[address] [id number] Pcp:Viv Richardson Subjective: * Chief Complaints: * * Medical History: Objective: * Vitals: Assessment: Plan: * Treatment: * Images: * The named appointment provid er may or may not be the originator of this progress note, and it is not deemed complete until electronically signed by the appointment provider. Sign off status: Pending * Provider: Noemi Silver DPM Date: 0 11/27/2024 Generated for Bertrand hunt/Laura/Andrey on: 04/10/2024 09:24 AM EST
--- OUTSIDE RECORDS SUMMARY | 2025-02-08 09:23 | XMS_ITS | Clinical Summary ---
Author Organization [facility] Address [address] [facility] [address] [place] [address] Phone Care Team Providers Care Safety Scientist Name Role Phone Viv Richardson MD Primary [...] topic Medical Devices Not on file Insurance [facility] MEDICARE REPLACEMENT [facility] MEDICARE REPLACEMENT [facility] MEDICARE REPLACEMENT [facility] MEDICARE REPLACEMENT [facility] MEDICARE [facility]PLACEMENT [facility] MEDICARE REPLACEMENT Care Teams Safety Scientist Relationship Specialty Start Date End Date Viv Richardson MD [address] [place] [address] Dr [place], [place] [address] PCP - General Internal Medicine 12/15/22 Additional Source Comments The information contained in this document represents components of the legal health record. It is not the complete legal health record.[facility]
--- OUTSIDE RECORDS SUMMARY | 2025-02-08 09:24 | XMS_ITS | Encounter Summary ---
Author Organization [employer] Address [address] [place] [address] Care Team Providers Care Crm Developer Name Role Phone Unavailable Primary Care Provider Unavailabl e Encounter Details Date Type Department Care Team (Late st Contact Info) Description 11/29/2024 Telephone [facility] MEDICINE [address] [place], [place] [phone] Nehal Colon, PharmD [address] [place] [address] Social History Tobacco Use Types Packs/Day Years [...]
--- OUTSIDE RECORDS SUMMARY | 2025-02-08 09:24 | XMS_ITS | Patient Health Record ---
Author Organization [facility] Address [address] [place] [place] [address] Care Team Providers Care Neck Band Maker Name Role Phone Viv Richardson Primary Care Provider Unavailab Darlene Garcia Unavailable [phone] Viv Richardson Unavailable Unavailable Genet Dillard Unavailable [phone] Allergies Allergen (clinical drug ingredient) Drug/Non Drug [...] Problem Acquired hammer toe of right foot (950955457580605 5) Other hammer toe(s) (acquired), right foot (M20.41) Active confirmed Problem Acquired hammer toe of left foot (493002995987645 3) Other hammer toe(s) (acquired), left foot (M20.42) Active confirmed Problem Type II diabetes mellitus without complication (253393452) Type 2 diabetes mellitus without complication (E11.9) Active confirmed Problem Type I diabetes mellitus without complication (513112853) Type 1 diabetes mellitus without complication (E10.9) Active confirmed Vital Signs Heart Rate 88 /min 08/24/2024 Blood pressure diastolic 67 mm Hg 08/24/2024 Height 5ft 8in in 08/24/2024 Blood pressure systolic 102 mm Hg 08/24/2024 Weight 260 lbs 08/24/2024 BMI 39.53 kg/m2 08/24/2024 Procedures Procedure Date Ordered Date Performed Result Body Sit e 79507-GDFSGCL NAIL, 6 OR MORE 08/24/2024 N/A Encounters Encounter Location Date [facility] [address] 08/24/2024 Darlene Silver Pain in right toe(s) M79.674 ; Tinea unguium B35.1 ; Pain in left toe(s) M79.675 ; Type 2 diabetes mellitus without complication E11.9 and Xerosis of skin L85.[address] [facility] [address] 06/29/2024 Genet Dillard [facility] [place] [address] [address] 08/24/2024 Darlene Silver [facility] [place] [address] [address] 11/22/2024 Darlenealma Silver Assessments Encounter Date Diagnosis [...] Treatment Pending Test Test Name Order Date [id number] NAIL, 6 OR MORE 08/24/2024 Next Appt Details Provider Name:Darlene Major gladys, 03/01/2025 11:00:00 AM, [address] [place] [address], [place], [address], Insurance Providers Payer Name Payer Address Payer Phone Subscriber Number Group Number Insured Name Patient Relationship to Insured Coverage Start Date Coverage End Date [facility] [employer] Claims [address] [place] [address] [id number] Sridhar Krishnamurthy Self - patient is the insured Medical (General) History Medical History History ICD Code Arthritis asthma Depression Diabetic Headaches/Migraines High blood pressure Chicken pox Pacemaker
--- OUTSIDE RECORDS SUMMARY | 2025-02-08 09:24 | XMS_ITS | Clinical Summary ---
Author Organization [employer] Address [address] [facility] 7t [place] [address] Care Team Providers Care Paper Coater Name Role Phone Unavailable Primary Care Provider [...] Verio test strip 3 Active HYDROcodone-ac etaminophen ([place]) 5-325 MG tablet TAKE 1 TABLET BY [...] DAILY 3 Active Lancets (OneTouch Delica Plus [id number]) misc TEST BLOOD SUGAR THREE TIMES DAILY [...] Type Department Care Team Description 11/29/2024 Telephone [facility] MEDICINE [address] [place] [address] Nehal Colon, PharmD from Last 3 [...] Use Screening 1978 Hepatitis C Screening 1984 RSV Patients and Patients Aged 60 years or older (1 - Risk 50-74 years 1-dose series) 2016 Dental Prophylaxis 06/24/2019 12/22/2018 Dental X-Ray: Bitewings 04/03/2022 04/02/19 22, 10/16/2018, 04/12/2018, Additional history exists Dental Oral Exam 03/17/2023 09/14/2022, , 10/16/2018, Additional history exists Tobacco Screening 09/15/2023 09/14/2022 COVID-19 Vaccine ( season) 2024 12/15/2023, 01/11/2023, 02/03/2022, Additional history exists Influenza Vaccine (#1) 2024 , 01/06/2023, 02/03/2022, Additional history exists Dental X-Ray: Full Mouth 09/15/2025 023, 09/03/2020, 10/16/2018, Additional history exists DTaP/Tdap/Td Vaccines (3 - Td or Tdap) 03/26/2034 03/26/2024, 11/21/2012, 11/23/2007 Pneumococcal Vaccine: 50+ Years Completed 03/24/2021, 01/23/2021, 02/17/2018, Additional history exists Zoster Vaccines Completed 11/01/2022, 03/0 03/2021, 03/24/2021 Hepatitis B Vaccines Completed 04/23/2024, 03/26/2024, 04/03/2001, [...] Relevant to Health Maintenance Insurance DENTAL - [facility] CARE < 65 DENTAL [facility]
== END 2025-02-07 09:06 | disposition home or self-care (01) ==
LOC: HO.HOSX 09:05
PROVIDERS: Visit Provider Physician Assistant
DX: Z13.89 Encounter for screening for other disorder (principal)

== ENCOUNTER → 2025-03-06 15:13 | Outpatient (BNV) | payer OTHER, SELFPAY | PROVIDERS: PCP Internal Medicine; Visit Provider Internal Medicine Cardiovascular Disease | DX: Z45.02 Encounter for adjustment and management of automatic implantable cardiac defibrillator (principal) | CPT/HCPCS: 93297 ==